=== PATIENT | male | born 1945 | race Caucasian/White ===

== ENCOUNTER 2017-12-23 11:09 | Outpatient (CLI) | payer MEDICARE ==
[2017-12-23 11:55] LABS: Anion Gap 9 mmol/L (10-20); BUN (Urea Nitrogen) 17 mg/dL (8.4-25.7); Calc. Creatinine Clearance 0 mL/min (70-130); Calcium 9.5 mg/dL (7.8-10.44); Carbon Dioxide 28 mmol/L (23-31); Chloride 105 mmol/L (98-107); Estimated GFR-MDRD 75; Glucose 125 mg/dL (80-115); PTT 29.3 SEC (22.9-36.1); Potassium 4.7 mmol/L (3.5-5.1); Prothrombin Time 13.2 SEC (12.0-14.7); Sodium 137 mmol/L (136-145)
[2017-12-23 12:09] LABS: #Eosinphils 0.1 thou/uL (0.0-0.7); #Lymphocytes 1.3 thou/uL (1.20-3.40); #Monocytes 0.3 thou/uL (0.11-0.59); #Neutrophils 5.4 thou/uL (1.40-6.50); %Basophils 0.6 % (0.0-1.0); %Eosinophils 1.6 % (0.0-10.0); %Lymphocytes 17.6 % (21.0-51.0); %Monocytes 4.6 % (0.0-10.0); %Neutrophils 75.6 % (42.0-75.0); Hemoglobin 12.8 g/dL (14.0-18.0); MDiff Complete? YES; Macrocytosis SLIGHT = 6-15 cells (100X) (0-5/hpf); Mean Corpuscular HGB CONC 34.4 g/dL (32.0-36.0); Mean Corpuscular Hemoglobin 37.1 pg (27.0-31.0); Mean Platelet Volume 6.9 fL (7.4-10.4); PLT Morphology Comment Appears Adequate; Platelet Count 253 thou/uL (130-400); RBC Distribution Width 15.6 % (11.5-14.5); Red Blood Cell (RBC) Count 3.46 mill/uL (4.70-6.10); White Blood Cell (WBC) Count 7.1 thou/uL (4.8-10.8)
--- NOTE | 2017-12-23 14:37 | RAD ---
PA AND LATERAL VIEWS OF CHEST: Date: 12/23/17 HISTORY: Penile lesion. FINDINGS: The heart size is normal. The lungs are expanded without focal areas of consolidation, pneumothorax, or pleural effusions. There are mild degenerative changes in the spine. IMPRESSION: No radiographic evidence of cardiopulmonary process. POS: [facility]
== END 2017-12-23 11:10 | disposition home or self-care (01) ==
LOC: EKG 11:09
PROVIDERS: ATTEND Urology
DX: N48.9 Disorder of penis, unspecified (principal)
CPT/HCPCS: 71046; 80048; 81001; 85025; 85610; 85730; 87086; 93005; G0103; 36415; 93010

== ENCOUNTER 2017-12-29 05:35 | Day surgery (SDC) | payer MEDICARE ==
[2017-12-24 10:02] VITALS: BMI 26.6
[2017-12-29] MEDS ORDERED: CEFAZOLIN/Water 2 GM/20 ML SYRINGE ONE (06:19)
[2017-12-29] MEDS ORDERED: Neomycin-Polymyxin 1 ML AMP ONE (06:44)
[2017-12-29] MEDS ORDERED: Bacitracin Zinc Ointment 30 gm TUBE ONE (06:44)
[2017-12-29] MEDS ORDERED: Midazolam HCl 2 mg/2 ml Vial ONE ×2 (07:07→07:10)
[2017-12-29] MEDS ORDERED: Fentanyl 100 MCG/2 ML VIAL ONE ×3 (07:07→08:20)
[2017-12-29] MEDS ORDERED: Bupivacaine 0.5% 10 ML VIAL ONE (07:44)
--- NOTE | 2017-12-29 14:03 | OP ---
DATE OF SERVICE: 12/29/2017 PREOPERATIVE DIAGNOSES: 1. Penile lesion. 2. Phimosis. POSTOPERATIVE DIAGNOSES: 1. Penile lesion. Consistent with squamous cell carcinoma. 2. Phimosis. PROCEDURE: Partial penectomy. SURGEON: Dr. Bravo. ANESTHESIA: General LMA as well as penile block. COMPLICATIONS: None. SPECIMEN: Original prostate biopsy as well as the distal portion of the penis and finally a skin margin from the dorsal shaft. DRAIN: Draining was an 18-[place] silicone. ESTIMATED BLOOD LOSS: Minimal blood loss. INDICATIONS: The patient is a 72-year-old male, who was seen in the office with phimosis and concern for penile lesion. Upon inspection, this was concerning for cancer, just by observation. So we discussed doing a biopsy and proceeding with partial penectomy, if that ended up proving consistent with cancer and he was in agreement with this. Preoperatively, he did not have any concern for lymphadenopathy and we proceeded with the case. TECHNIQUE: The patient was brought to the room by Anesthesia, lying on table in the supine position. After given general anesthetic. A penile block was administered with 0.25% Marcaine 10 mL and he was prepped and draped in sterile fashion. A tourniquet was placed and a biopsy including the normal and concerning portion of the glans was then sent. Once specimen was taken the tourniquet was taken off, so it was on for less than 30 seconds before releasing. With it off and holding pressure to the biopsy site, I awaited confirmation from pathology that this was a cancer. They reported this was c/w invasive squamous cell carcinoma, so I proceeded with partial penectomy. At this point, the tourniquet was placed back up and the distal portion of the penis was transected, taking care to get at least 2 cm margin from the expected lesion. When everything but the corpus spongiosum was resected, the penis was held up placing the urethra on slight traction. In this fasion, another 1cm of urethra was left for distal margin, and it was then completely transected. Still with the tourniquet on, the corpora cavernosa were sewn over individually using 3-0 PDS in running fashion. The tourniquet was released, and only a mild amount of bleeding was noted. The tourniquet was not needed further. More 3-0 PDS was used in interrupted and running fashion to ensure maximum hemostasis of the corpora cavernosa at this time. At no time was there an obvious central or dorsal vessel that needed separate ligation. Complete hemostasis was noted before turning attention to the urethra. Then the urethra itself was spatulated ventrally, and the periurethral tissue was reapproximated to the subcutaneous tissue to alleviate tension and some pressure on the skin due to mobility. Then, attention was turned to the mucosa itself where a 4-0 Monocryl was used in interrupted fashion to approximate the mucosa to the remaining skin. A portion of the ventral skin had been excised in order to have the margins line up in more cosmetic fashion; this was also sent--but was not concerning for any remaining cancer. Prior to placing the last sutures, an 18 silicone catheter was placed to gravity and then the final sutures were placed and the catheter was secured to the patient's thigh with a catheter secure. Bacitracin was applied to the wound and the patient's penis and perineal area was cleaned. I had confirmed that there was at least a 2 cm margin with pathology before completing the case. He was awakened and transferred to the PACU in stable condition. [facility]
[2017-12-29] MEDS ORDERED: Lidocaine 1% PF 5 ML VIAL ONE (16:24)
[2017-12-29] MEDS ORDERED: Propofol 200 MG/20 ML VIAL ONE (16:24)
== END 2017-12-29 10:50 | disposition home or self-care (01) ==
LOC: SDC 05:35
PROVIDERS: ATTEND Urology
PROC: 0VBSXZZ Excision of Penis, External Approach (ICD-10-PCS; principal; 2017-12-29)
DX: C60.9 Malignant neoplasm of penis, unspecified (principal); C60.1 Malignant neoplasm of glans penis; N47.1 Phimosis; I34.1 Nonrheumatic mitral (valve) prolapse; F17.290 Nicotine dependence, other tobacco product, uncomplicated
CPT/HCPCS: 88305; 88309; 88331; 88332; J2001; J2250; J2704; J3010; J3490

== ENCOUNTER 2018-02-15 09:43 | Outpatient (CLI) | payer MEDICARE ==
--- NOTE | 2018-02-15 13:16 | MRI ---
MRI OF THE PELVIS WITHOUT AND WITH CONTRAST: Date: 02/15/18 COMPARISON: None. HISTORY: History of penile cancer with enlarged inguinal lymph nodes. TECHNIQUE: Multiplanar, multisequence MR images were obtained of the pelvis without and with IV contrast. FINDINGS: The corpora course superiorly at the skin surface. The penis is very small and may have been partiall y resected. There is a well circumscribed, nonenhancing focus of high T1 and T2 signal at the skin nunn rface where the corpora course superiorly that measures 1.9 cm in size. This may represent a small fl uid collection. There are enlarged bilateral inguinal lymph nodes. The largest is seen on the left, which measures 2. 7 cm in size. There is enhancement of the periphery of the lymph node without significant central enh ancement. Edema is seen in both inguinal regions surrounding the enlarged lymph nodes. The prostate is enlarged. The urinary bladder is unremarkable. No marrow signal abnormality is seen i n the visualized bones. IMPRESSION: 1. Enlarged bilateral inguinal lymph nodes are most likely secondary to metastatic disease to the in guinal lymph nodes. 2. Nonspecific well circumscribed cyst-like structure at the tip of the corpora. Correlate with phys ical examination. POS: [facility]
[2018-02-15] MEDS ORDERED: Gadobenate Dimeglumine 529 MG/1 ML (20ML VIAL) ONE (14:51)
== END 2018-02-15 09:44 | disposition home or self-care (01) ==
LOC: TBSIIMAG 09:43
PROVIDERS: ATTEND Urology
DX: R59.9 Enlarged lymph nodes, unspecified (principal)
CPT/HCPCS: 72197; 82565; A9579

== ENCOUNTER 2018-04-01 12:07 | Outpatient (CLI) | payer MEDICARE ==
--- NOTE | 2018-04-01 15:01 | RAD ---
INSPIRATORY AND EXPIRATORY FRONTAL IMAGING OF THE CHEST: Date: 04-01-18 Comparison: 12-23-17 History: Lymph node disorder. FINDINGS: There are small nodular densities overlying bilateral lung bases suggesting nipple shadows. This coul d be confirmed with follow up imaging with nipple markers. There is no pneumothorax seen on either si de on inspiratory or expiratory phase imaging. The heart and mediastinal contours appear grossly unre markable. IMPRESSION: Bibasilar nodular density as above. No focal consolidation or evidence of pulmonary edema. POS: [facility]
--- NOTE | 2018-04-01 17:36 | PET ---
PET WITH CT WHOLE BODY: INDICATION: History of penile cancer. TECHNIQUE: Whole body PET images were obtained following administration of 12.03 mCi [id number] IV. The CT images w ere obtained from the skull vertex through the feet for attenuation correction purposes only. No PET CT comparisons are available. Comparisons are made with prior MR of the pelvis with and without contr ast dated 02/15/18. FINDINGS: Biodistribution: The biodistribution for the examination appears acceptable. Head/Neck: No hypermetabolic lymphadenopathy or skin lesion is identified within the head and neck region. Thorax: No hypermetabolic pulmonary nodule or pleural effusion is demonstrated. No hypermetabolic lymphadenop athy is evident. Abdomen/Pelvis: No hypermetabolic lymphadenopathy or ascites is present within the abdomen. There are hypermetabolic inguinal lymph nodes seen bilaterally. The largest is seen on the left within the region of the left common femoral chain measuring up to 8.7 cm in size with a peak SUV uptake of 14.05 and a mean uptake value of 7.13. This lymph node has increased in size from the comparison examination where it measur ed up to 2.7 cm. There is an additional hypermetabolic lymph node seen within the left inguinal regio n adjacent to this larger one and an additional smaller hypermetabolic lymph node is seen adjacent to the left femoral vein at the level of the left femoral canal. There are additional hypermetabolic le ft inguinal lymph nodes. No pathologically enlarged or hypermetabolic lymph nodes are seen internally within the pelvis. Skin/Osseous Structures: No hypermetabolic skin or osseous lesions demonstrated. IMPRESSION: Abnormal PET CT: 1. Hypermetabolic lymphadenopathy of the inguinal regions consistent with regional metastatic diseas e. 2. No definite hypermetabolic skin activity is seen in the region of the penile shaft or elsewhere t o suggest residual malignancy in the penile shaft. 3. Other findings as above. POS: [facility]
--- NOTE | 2018-04-01 20:31 | EKG ---
Test Reason : Blood Pressure : / mmHG Vent. Rate : 073 BPM Atrial Rate : 073 BPM P-R Int : 154 ms QRS Dur : 082 ms QT Int : 380 ms P-R-T Axes : 069 049 068 degrees QTc Int : 418 ms Normal sinus rhythm Normal ECG When compared with ECG of 23-DEC-2017 11:46, No significant change was found Confirmed by ALEJO LOYD, DR. Crocker ([id number]) on 04/01/2018 8:31:20 PM Referred By: OUT OF TOWN Confirmed By:DR. Lizzette DHILLON MD
== END 2018-04-01 12:08 | disposition home or self-care (01) ==
LOC: EKG 12:07
DX: R59.0 Localized enlarged lymph nodes (principal); J98.4 Other disorders of lung
CPT/HCPCS: 71045; 71046; 78816; 93005; A9552; 93010

== ENCOUNTER 2018-04-12 14:04 | Emergency (ER) | payer MEDICARE ==
[~2018-04-12 14:04] MED LIST: Iopamidol 370 76% 100 ML VIAL ONE
[2018-04-12] MEDS ORDERED: HYDROcodone/Acetaminophen 5/325 mg Tablet ONE (14:28)
[2018-04-12 15:00] LABS: ALT (SGPT) 21 U/L (8-55); AST (SGOT) 21 U/L (5-34); Albumin 3.7 g/dL (3.4-4.8); Alkaline Phosphatase 67 U/L (40-150); Anion Gap 14 mmol/L (10-20); BUN (Urea Nitrogen) 10 mg/dL (8.4-25.7); Bilirubin, Total 1.2 mg/dL (0.2-1.2); Calc. Creatinine Clearance 0 mL/min (70-130); Calcium 9.1 mg/dL (7.8-10.44); Carbon Dioxide 20 mmol/L (23-31); Chloride 106 mmol/L (98-107); Estimated GFR-MDRD 89; Globulin 3.1 g/dL (2.4-3.5); Glucose 101 mg/dL (80-115); Potassium 3.8 mmol/L (3.5-5.1); Protein, Total 6.8 g/dL (5.8-8.1); Sodium 136 mmol/L (136-145)
[2018-04-12 15:01] LABS: Hemoglobin 11.1 g/dL (14.0-18.0); Mean Corpuscular HGB CONC 37.1 g/dL (32.0-36.0); Mean Corpuscular Hemoglobin 35.8 pg (27.0-31.0); Mean Corpuscular Volume 96.7 fl (80.0-94.0); Mean Platelet Volume 7.1 fL (7.4-10.4); Platelet Count 187 thou/uL (130-400); RBC Distribution Width 13.9 % (11.5-14.5)
[2018-04-12 15:03] LABS: Band 4 % (5-11); Lymphocytes 8 % (21-51); Monocytes 3 % (0-10); Neutrophil 85 % (42-75)
[2018-04-12 15:05] LABS: MDiff Complete? YES; Manual Diff?? YES
--- NOTE | 2018-04-12 15:47 | ULT ---
SCROTAL ULTRASOUND: Date: 04/12/18 COMPARISON: None. HISTORY: Penile cancer, testicular/scrotal swelling. TECHNIQUE: Multiplanar Cunningham scale sonographic imaging of the scrotal contents obtained with Doppler interrogatio n of the testicles, including color flow and spectral analysis. FINDINGS: Right testicle measures 4.9 x 3.5 x 2.3 cm. Left testicle measures 5.0 x 2.4 x 2.8 cm. There is diffu se nonspecific scrotal wall thickening of the skin and subcutaneous fat. Incidental note is made of a small simple cyst within the right testicle measuring 3.0 x 3.0 mm. No s uspicious intratesticular mass is identified on either side. Small bilateral hydroceles are noted, right greater than left. Epididymal head on the right measures 7.0 x 13.0 mm and epididymal head on the left measures 11.0 x 1 3.0 mm. Subcentimeter bilateral epididymal head cysts are noted. IMPRESSION: Nonspecific scrotal wall thickening/edema. No evidence for testicular torsion, testicular mass lesion , or epididymitis/orchitis. POS: [facility]
--- NOTE | 2018-04-12 15:57 | CT ---
CONTRAST ENHANCED CT IMAGES ABDOMEN AND PELVIS: HISTORY: Left groin swelling. FINDINGS: Contrast-enhanced CT images of the abdomen and pelvis were obtained after administration of IV contra st. The lung bases are unremarkable. No evidence of free intraperitoneal air is seen. The liver, spleen, pancreas, gallbladder, adrenal glands, and kidneys are unremarkable. No evidence of hydroureteral nephrosis seen. The loops of small bowel are unremarkable. No obvious colonic mass is seen. There is a large mass in the left inguinal area, 3-dimensional measurements measuring 9.5 x 8.2 x 9.7 cm. This lesion has a peripheral rim of soft tissue enhancement with central areas of cystic change compatible with a large left inguinal necrotic lymph node. Additional bi-lobed collection and mass is also seen in the right inguinal area. The right inguinal bilobed lesion has 3-dimensional measure ments of approximately 4.7 x 2.9 x 3.6 cm. Bilateral partially cystic and circumferentially enhancing inguinal lesions most compatible with bila teral inguinal metastatic disease from patient's known history of penile cancer. POS: [facility]
[2018-04-12 16:07] LABS: INR-International Normal Ratio 1.1; Prothrombin Time 13.9 SEC (12.0-14.7)
[2018-04-12 16:08] LABS: PTT 35.7 SEC (22.9-36.1)
== END 2018-04-12 17:52 | disposition home or self-care (01) ==
LOC: SCSER 14:04
DX: I89.9 Noninfective disorder of lymphatic vessels and lymph nodes, unspecified (principal); Z85.45 Personal history of malignant neoplasm of unspecified male genital organ; F17.210 Nicotine dependence, cigarettes, uncomplicated
CPT/HCPCS: 36415; 74177; 76870; 80053; 83605; 85025; 85610; 85730; 93976

== ENCOUNTER 2018-04-26 09:03 | Inpatient (IN) | payer MEDICARE ==
[2018-04-26 10:06] LABS: #Eosinphils 0.2 thou/uL (0.0-0.7); #Lymphocytes 1.1 thou/uL (1.20-3.40); #Monocytes 0.4 thou/uL (0.11-0.59); #Neutrophils 12.1 thou/uL (1.40-6.50); %Basophils 0.2 % (0.0-1.0); %Eosinophils 1.5 % (0.0-10.0); %Lymphocytes 8.1 % (21.0-51.0); %Neutrophils 87.3 % (42.0-75.0); Hemoglobin 11.6 g/dL (14.0-18.0); Mean Corpuscular HGB CONC 34.6 g/dL (32.0-36.0); Mean Corpuscular Hemoglobin 35.3 pg (27.0-31.0); Mean Platelet Volume 6.8 fL (7.4-10.4); Platelet Count 226 thou/uL (130-400); RBC Distribution Width 15.1 % (11.5-14.5); Red Blood Cell (RBC) Count 3.28 mill/uL (4.70-6.10); White Blood Cell (WBC) Count 13.9 thou/uL (4.8-10.8)
[2018-04-26] MEDS ORDERED: PALONOSETRON HCL 0.05 MG/ML 5 ML VIAL IVP SCH (10:15)
[2018-04-26] MEDS ORDERED: Dexamethasone 10 MG/ML VIAL SLOW IVP SCH (10:15)
[2018-04-26] MEDS ORDERED: Famotidine/PF 20 mg/2ml Vial SLOW IVP SCH (10:15)
[2018-04-26] MEDS ORDERED: diphenhydrAMINE 50 MG/ML VIAL IVP SCH (10:15)
[2018-04-26 10:32] LABS: Anion Gap 13 mmol/L (10-20); BUN (Urea Nitrogen) 13 mg/dL (8.4-25.7); Calc. Creatinine Clearance 0 mL/min (70-130); Calcium 10.2 mg/dL (7.8-10.44); Carbon Dioxide 23 mmol/L (23-31); Chloride 101 mmol/L (98-107); Estimated GFR-MDRD 71; Glucose 119 mg/dL (80-115); Potassium 4.5 mmol/L (3.5-5.1); Sodium 132 mmol/L (136-145)
[2018-04-26] MEDS ORDERED: MANNITOL IV SCH (11:00)
[2018-04-26] MEDS ORDERED: CISPLATIN IV SCH (11:00)
[2018-04-26] MEDS ORDERED: SODIUM CHLORIDE 0.9% IV SCH (11:00)
[2018-04-26 11:17] VITALS: BMI 25.7
[2018-04-26] MEDS ORDERED: Benzonatate 100 MG CAP PO PRN (11:28)
[2018-04-26] MEDS ORDERED: Mag-Al 1200 mg/1200 mg/30 ML UDCUP PO PRN (11:28)
[2018-04-26] MEDS ORDERED: traZODone HCl 50 MG TAB PO PRN (11:28)
[2018-04-26] MEDS ORDERED: Senokot 8.6 MG TAB PO PRN (11:28)
[2018-04-26] MEDS ORDERED: Loratadine 10 MG TAB PO PRN (11:28)
[2018-04-26] MEDS ORDERED: Calcium Carbonate 500 MG ChewTAB PO PRN (11:28)
[2018-04-26] MEDS ORDERED: hydrALAZINE 20 MG/ML VIAL SLOW IVP PRN (11:28)
[2018-04-26] MEDS ORDERED: Bisacodyl 5 MG TAB PO PRN (11:28)
[2018-04-26] MEDS ORDERED: Diabetic Tussin 200 MG/10 ML UDCUP PO PRN (11:28)
[2018-04-26] MEDS ORDERED: cloNIDine 0.1 MG TAB PO PRN (11:28)
[2018-04-26] MEDS ORDERED: Acetaminophen 325 MG TAB PO PRN (11:28)
[2018-04-26] MEDS ORDERED: HYDROcodone/Acetaminophen 5/325 mg Tablet PO PRN ×2 (11:56)
--- NOTE | 2018-04-26 12:28 | HP ---
DATE OF ADMISSION: 04/26/2018 PRIMARY CARE PHYSICIAN: Dr. Bayron Palmer. CHIEF COMPLAINT: Need chemotherapy medication for penile cancer. HISTORY OF PRESENT ILLNESS: Mr. Arciniega is a very pleasant 72-year-old male with a recent diagnosis of penile cancer in December of this year, was admitted from Oncology Clinic as a direct admit for recei ving chemotherapy for same. History is mainly obtained by the patient himself and extensive medical records have been reviewed. Mr. Arciniega was diagnosed as having penile cancer when he has found lesion on his penis in December of t his year. He was referred to Urology by his primary care physician and underwent biopsy, which confi rmed the finding of squamous cell carcinoma. He underwent partial penectomy by Dr. Cynthia Bravo at [facility] on 12/29/2017. He was referred to a surgeon for lymph node invasion in the inguinal re on and saw Dr. Hernandez in [place] about 2 months ago. He is supposed to undergo a surgery for lymph node dissection later this month. He reports that he started to notice a significant worsening of his swelling in the left inguinal reg ion for the last 2-3 weeks. It has been hurting him as well. He denies any fever or chills. He den ies any dysuria, frequency, urgency, or hematuria. He denies any other swelling anywhere in the body . He also developed testicular swelling. He sought medical attention at the emergency room on 04/12. Abdominal pelvic CT scan and testicular ultrasound was done by the emergency room physician. The CT scan showed a large mass in the left inguinal area measuring 9.5 x 8.2 x 9.7 cm with central areas of necrosis. Additional bilobed collection mass was also seen in the right inguinal region, wh ich measured 4.7 x 2.9 x 3.6 cm. Testicular ultrasound showed bilateral hydrocele without any testic ular mass, torsion or orchitis or epididymitis. Emergency room physician contacted his surgeon in [facility] and he was instructed to keep up his appointment later in the month for surgery. He reports that because of worsening swelling and pain, he was referred to Dr. Fried by Dr. Bravo. He was seen in the Oncology Clinic and the decision was made that he would undergo chemotherapy damián or to his surgery for necrotic lymph node, which has metastatic disease from his penile cancer. He i s now being admitted to oncology floor for the same. Other than that, he denies any recent illnesses. He denies any nausea, vomiting, diarrhea, abdominal pain. He denies any chest pain or shortness of breath. He denies any urinary symptoms. No fever, chills, weight loss or sweating. PAST MEDICAL HISTORY: 1. Penile cancer with lymph node extension, status post partial penectomy. 2. History of mitral valve prolapse. 3. Remote history of malaria. PAST SURGICAL HISTORY: Penile cancer removal. PSYCHIATRIC HISTORY: No anxiety, no depression. SOCIAL HISTORY: He drinks every day. No history of drug or tobacco abuse. ALLERGIES: No known medication allergies. CURRENT MEDICATIONS: Tylenol with codeine #3 as needed. FAMILY HISTORY: Significant for renal failure in his father who in his 90s. His mom at th e age of 93 of old age. One of his grandmothers had skin cancer. REVIEW OF SYSTEMS: The following complete review of systems was negative, unless otherwise mentioned in the HPI or below: Constitutional: Weight loss or gain, ability to conduct usual activities. Skin: Rash, itching. Eyes: Double vision, pain. ENT/Mouth: Nose bleeding, neck stiffness, pain, tenderness. Cardiovascular: Palpitations, dyspnea on exertion, orthopnea. Respiratory: Shortness of breath, wheezing, cough, hemoptysis, fever or night sweats. Gastrointestinal: Poor appetite, abdominal pain, heartburn, nausea, vomiting, constipation, or diarr hea. Genitourinary: Urgency, frequency, dysuria, nocturia. Musculoskeletal: Pain, swelling. Neurologic/Psychiatric: Anxiety, depression. Allergy/Immunologic: Skin rash, bleeding tendency. A 12-point review of systems was done and is negative except for those mentioned in the history and p hysical. LABORATORY DATA: His CBC today shows WBCs at 13.9 with 87% neutrophils, hemoglobin 11.6, platelet co unt of 226. Serum chemistry shows sodium of 132, glucose of 119. PHYSICAL EXAMINATION: VITAL SIGNS: Blood pressure 120/64, temperature 98.1, heart rate 88, saturating 97% on room air, res pirations 18. GENERAL: No acute distress, awake, alert, oriented x3. HEENT: Mucous membrane is moist and pink. No oropharyngeal exudate or erythema. Head is normocepha lic, atraumatic. Pupils equal, reactive to light and accommodation. Extraocular movement intact. NECK: Supple without any lymphadenopathy, JVD or bruit. CHEST: Clear to auscultation without any wheezing, rales or rhonchi. Rhythm is regular without any murmur, rubs or gallops. ABDOMEN: Soft, nontender, nondistended, positive bowel sounds. GENITOURINARY: Showed significant swelling in his left inguinal region, which is somewhat tender to palpation, has mild erythema without any significant warmth. It is approximately the size of a tenni s ball and it has fluctuance to it. Scrotal swelling has since improved. He has a slight redness on the scrotum. Right inguinal lymph node is also palpable, but it is the size of a small golf ball at the most. LYMPH NODE: No other lymphadenopathy is palpable. NEUROLOGIC: Nonfocal. SKIN: Free of any rashes or bruises. EXTREMITIES: Free of any cyanosis, clubbing, or edema. PSYCHIATRIC: Normal affect. IMPRESSION AND PLAN: 1. Penile cancer with metastasis to lymph nodes and inguinal region. The patient is currently being admitted for chemotherapy. Chemotherapy orders have been written by his oncologist, Dr. Fried. H e will be getting cisplatin as well as dexamethasone. We will monitor him in the Oncology unit. He is currently hemodynamically stable. 2. Leukocytosis. The patient's WBC count was within normal limit in 12/2017. However, at this time , he is not having any signs or symptoms to suggest sepsis. Most likely his leukocytosis is reactive secondary to necrotic lymph node with malignancy. He denies any urinary symptoms either. He is not having any constitutional symptoms either. At this time, antibiotics will be deferred. 3. Deep venous thrombosis and gastrointestinal prophylaxis. 4. Add p.r.n. medication orders. DISPOSITION: Mr. Arciniega is currently being admitted to Oncology unit for chemotherapy as above. Estim ated length of stay is at least 2-3 midnight. Further management will depend upon his clinical cours e and recommendations from Oncology colleagues.
[2018-04-26] MEDS ORDERED: PACLITAXEL IVPB SCH (13:30)
[2018-04-26] MEDS ORDERED: SODIUM CHLORIDE 0.9% IVPB SCH ×4 (13:30→22:00)
[2018-04-26] MEDS: HYDROcodone/Acetaminophen 10/325 mg Tablet PO PRN (15:14)
[2018-04-26] MEDS ORDERED: IFOSFAMIDE IVPB SCH (16:00)
[2018-04-26] MEDS: MESNA IVPB SCH (18:31)
[2018-04-26] MEDS: SODIUM CHLORIDE 0.9% IVPB SCH (18:31)
--- NOTE | 2018-04-26 20:02 | CON ---
DATE OF CONSULTATION: 04/26/2018 REASON FOR CONSULTATION: Chemotherapy for penile cancer. HISTORY OF PRESENT ILLNESS: Mr. 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 He underwent a partial penectomy in December. He had no concerning lymphadenopathy preoperatively. In March of this year, he began to have an enlarging mass in his left groin. He also had palpable lymph nodes in his right groin. He contacted his surgeon and was scheduled for lymph node dissection on 05/05. He unde rwent a CT scan of the abdomen and pelvis on 04/12, showed a large mass in the left inguinal area vin suring 9.5 x 8.2 x 9.7. He had a bilobed mass in his right inguinal region measuring 4.7 x 2.9 x 3.6 cm. He was able to get a hold of his surgeon and his surgery was scheduled for 04/28. Unfortunatel y, his left mass has continued to grow and is causing some shooting pain in his groin and scrotum. Arely Fried saw Mr. Arciniega on 04/19 and discussed prognosis and diagnosis. The lymph nodes are rapidly progressing and felt that neoadjuvant chemotherapy is now the best option. The patient is admitted t [facility] to begin cycle 1 of 4 paclitaxel, ifosfamide and cisplatin. PAST MEDICAL HISTORY: 1. Mitral valve prolapse. 2. Malaria. PAST SURGICAL HISTORY: Partial penectomy in 12/2017. ALLERGIES: No known drug allergies. HOME MEDICATIONS: Hydrocodone 10/325 one q.4-6 hours p.r.n. pain. FAMILY HISTORY: Noncontributory. SOCIAL HISTORY: He is , has one child. Lives alone. Social drinker. No tobacco or illicit drug use. REVIEW OF SYSTEMS: Positive for groin pain. Otherwise, negative. PHYSICAL EXAMINATION: VITAL SIGNS: Temperature is 98.1, pulse is 88, respiratory rate 18, BP is 120/64, is 97% on room air . GENERAL: This is a well-developed, well-nourished male, in no acute distress. HEENT: Normocephalic, atraumatic. Pupils equal and reactive to light. NECK: Supple. CARDIOVASCULAR: Regular rate and rhythm. LUNGS: Clear. ABDOMEN: Soft, nontender. Bowel sounds are positive. EXTREMITIES: No clubbing, cyanosis or edema. SKIN: No rash. LYMPH: He has a large bulky left inguinal mass measuring greater than 10 cm and the right inguinal a hemalatha has approximately 4-5 cm mass. NEUROLOGIC: Nonfocal. PSYCHIATRIC: The patient is alert and oriented and appropriate. PERTINENT LABORATORY AND X-RAYS: Current WBCs are 13.9, hemoglobin 11.6, hematocrit 33.5, platelet c ount is 226,000, 87% neutrophils, 8% lymphocytes. Sodium is 132, potassium 4.5, chloride 101, CO2 is 23, BUN is 13, creatinine 1.04, glucose 119, calcium 10.2. ASSESSMENT: 1. Squamous level carcinoma of the penis. 2. Admission for neoadjuvant chemotherapy. DISCUSSION: The patient will receive his first dose of chemotherapy today. This will include paclit edwar, ifosfamide and cisplatin. He will receive mesna for cardioprotection prior to ifosfamide. He will also receive IV hydration throughout this process to protect his kidneys. We will check his CBC daily. I will adjust his pain medications to his home dose of 10 mg of hydrocodone, add Colace stoo l softener. All other medical related issues have been managed by son. I appreciate their assistanc e. Thank you for the consult.
[2018-04-26] MEDS: Docusate 100 MG CAP PO SCH (21:15)
[2018-04-26] MEDS: Famotidine 20 MG TAB PO SCH (21:15)
[2018-04-26] MEDS: Enoxaparin Sodium 40 MG/0.4 ML SYRINGE SC SCH (21:16)
[2018-04-26] MEDS ORDERED: MESNA IVPB SCH ×2 (22:00)
[2018-04-27] MEDS ORDERED: MESNA IVPB SCH ×4 (02:00→23:00)
[2018-04-27] MEDS ORDERED: SODIUM CHLORIDE 0.9% IVPB SCH ×4 (02:00→23:00)
[2018-04-27 04:21] LABS: #Lymphocytes 0.7 thou/uL (1.20-3.40); #Monocytes 0.1 thou/uL (0.11-0.59); #Neutrophils 5.5 thou/uL (1.40-6.50); %Eosinophils 0.1 % (0.0-10.0); %Lymphocytes 10.8 % (21.0-51.0); %Monocytes 1.1 % (0.0-10.0); Hemoglobin 10.3 g/dL (14.0-18.0); Mean Corpuscular HGB CONC 35.6 g/dL (32.0-36.0); Mean Corpuscular Hemoglobin 36.3 pg (27.0-31.0); Mean Platelet Volume 7.2 fL (7.4-10.4); Platelet Count 204 thou/uL (130-400); RBC Distribution Width 15.1 % (11.5-14.5); Red Blood Cell (RBC) Count 2.83 mill/uL (4.70-6.10); White Blood Cell (WBC) Count 6.3 thou/uL (4.8-10.8)
[2018-04-27 04:49] LABS: Anion Gap 10 mmol/L (10-20); BUN (Urea Nitrogen) 12 mg/dL (8.4-25.7); Calc. Creatinine Clearance 124 mL/min (70-130); Calcium 8.8 mg/dL (7.8-10.44); Carbon Dioxide 22 mmol/L (23-31); Chloride 107 mmol/L (98-107); Estimated GFR-MDRD Greater than 90; Glucose 142 mg/dL (80-115); Potassium 4.4 mmol/L (3.5-5.1); Sodium 135 mmol/L (136-145)
[2018-04-27] MEDS ORDERED: Pegfilgrastim 6 MG/0.6 ML Delivery Kit SQ SCH (08:15)
[2018-04-27] MEDS: Famotidine 20 MG TAB PO SCH ×2 (08:18→21:21)
[2018-04-27] MEDS: Docusate 100 MG CAP PO SCH ×2 (08:18→21:21)
--- NOTE | 2018-04-27 09:11 | PDOC.PN ---
- Subjective Encounter Start Date: 04/27/18 Encounter Start Time: 10:50 Subjective: Patient with some left groin pain resolved with pain pill. No N/V/ SOB/Fever -: or other complaints. - Objective Resuscitation Status: Resuscitation Status FULL:Full Resuscitation MAR Reviewed: Yes Vital Signs & Weight: Vital Signs (12 hours) Temp Pulse Resp BP Pulse Ox 04/27/18 07:19 97.7 F 69 16 138/63 95 04/27/18 03:35 97.8 F 66 18 121/58 L 98 04/27/18 00:00 97.9 F 63 16 145/65 H 98 Weight Weight 211 lb 3.2 oz I&O: 04/26/18 04/27/18 04/28/18 06:59 06:59 06:59 Intake Total 5120 Output Total 5010 Balance 110 Result Diagrams: 04/27/18 03:53 04/27/18 03:53 Phys Exam - Physical Examination Constitutional: NAD HEENT: moist MMs Respiratory: no wheezing, no rales, no rhonchi Cardiovascular: RRR, no significant murmur Gastrointestinal: soft, positive bowel sounds dressing to lump in left inguinal region Neurological: non-focal, moves all 4 limbs Psychiatric: normal affect, A&O x 3 Dx/Plan (1) Penile cancer Status: Acute (2) Metastatic squamous cell carcinoma Code(s): C79.9 - SECONDARY MALIGNANT NEOPLASM OF UNSPECIFIED SITE Status: Acute Comment: involving the inguinal lymph node, admitted for chemotherapy, scheduled excision with surgeon in [employer] on 05/05, Dr. Fried following (3) Mitral valve prolapse Code(s): I34.1 - NONRHEUMATIC MITRAL (VALVE) PROLAPSE Status: Chronic - Plan cont current plan of care, DVT proph w/SCDs * . - Discharge Day Encounter end time: 11:05
[2018-04-27] MEDS: HYDROcodone/Acetaminophen 10/325 mg Tablet PO PRN ×3 (09:43→18:27)
[2018-04-27] MEDS ORDERED: Dexamethasone 10 MG, Ondansetron 2MG/ML MDV 10 MG in Sodium Chloride 0.9% 50 ML IVPB SCH (14:00)
[2018-04-27] MEDS: SODIUM CHLORIDE 0.9% IVPB SCH ×2 (14:45→15:11)
[2018-04-27] MEDS: MESNA IVPB SCH (14:45)
[2018-04-27] MEDS: IFOSFAMIDE IVPB SCH (15:11)
[2018-04-27] MEDS: SODIUM CHLORIDE 0.9% IV SCH (17:30)
[2018-04-27] MEDS: CISPLATIN IV SCH (17:30)
[2018-04-27] MEDS: MANNITOL IV SCH (17:30)
[2018-04-27] MEDS: Enoxaparin Sodium 40 MG/0.4 ML SYRINGE SC SCH (21:23)
[2018-04-28] MEDS: HYDROcodone/Acetaminophen 10/325 mg Tablet PO PRN ×4 (03:30→20:03)
[2018-04-28 05:39] LABS: Anion Gap 12 mmol/L (10-20); BUN (Urea Nitrogen) 15 mg/dL (8.4-25.7); Calc. Creatinine Clearance 115 mL/min (70-130); Calcium 8.3 mg/dL (7.8-10.44); Carbon Dioxide 20 mmol/L (23-31); Chloride 108 mmol/L (98-107); Estimated GFR-MDRD Greater than 90; Glucose 99 mg/dL (80-115); Potassium 4.2 mmol/L (3.5-5.1); Sodium 136 mmol/L (136-145)
[2018-04-28 05:43] LABS: Band 11 % (5-11); Hemoglobin 10.4 g/dL (14.0-18.0); Lymphocytes 7 % (21-51); MDiff Complete? YES; Mean Corpuscular HGB CONC 34.1 g/dL (32.0-36.0); Mean Corpuscular Hemoglobin 35.4 pg (27.0-31.0); Mean Platelet Volume 7.5 fL (7.4-10.4); Neutrophil 82 % (42-75); PLT Morphology Comment Appears Adequate; Platelet Count 165 thou/uL (130-400); RBC Distribution Width 15.1 % (11.5-14.5); Red Blood Cell (RBC) Count 2.93 mill/uL (4.70-6.10); White Blood Cell (WBC) Count 13.9 thou/uL (4.8-10.8)
[2018-04-28] MEDS: Famotidine 20 MG TAB PO SCH ×2 (08:16→21:33)
[2018-04-28] MEDS: Docusate 100 MG CAP PO SCH ×2 (08:16→21:32)
--- NOTE | 2018-04-28 08:35 | PDOC.PN ---
- Subjective Encounter Start Date: 04/28/18 Encounter Start Time: 10:20 Subjective: Patient feeling weak and feverish since last night. Had an episode of -: urinary incontinence while sleeping last night which is not normal for -: him. No CP/SOB/cough/N/V. No pain this AM. - Objective Resuscitation Status: Resuscitation Status FULL:Full Resuscitation MAR Reviewed: Yes Vital Signs & Weight: Vital Signs (12 hours) Temp Pulse Resp BP 04/28/18 08:27 100.5 F H 100 16 133/62 Weight Weight 211 lb 3.2 oz I&O: 04/27/18 04/28/18 04/29/18 06:59 06:59 06:59 Intake Total 5120 5670 Output Total 5010 2170 Balance 110 3500 Result Diagrams: 04/28/18 05:00 04/28/18 05:00 Phys Exam - Physical Examination Constitutional: NAD HEENT: moist MMs Respiratory: no wheezing, no rales, no rhonchi Cardiovascular: RRR, no significant murmur Gastrointestinal: soft, non-tender, positive bowel sounds Musculoskeletal: no edema Neurological: non-focal, moves all 4 limbs Psychiatric: normal affect, A&O x 3 Dx/Plan (1) Penile cancer Status: Acute (2) Metastatic squamous cell carcinoma Code(s): C79.9 - SECONDARY MALIGNANT NEOPLASM OF UNSPECIFIED SITE Status: Acute Comment: involving the inguinal lymph node, admitted for chemotherapy, scheduled excision with surgeon in [place] on 05/05, Dr. Fried following (3) Mitral valve prolapse Code(s): I34.1 - NONRHEUMATIC MITRAL (VALVE) PROLAPSE Status: Chronic (4) SIRS (systemic inflammatory response syndrome) Code(s): R65.10 - SIRS OF NON-INFECTIOUS ORIGIN W/O ACUTE ORGAN DYSFUNCTION Status: Acute Comment: temp to 100.7, tachycardia, leukocytosis this AM, likely chemo effect though will need to watch closely for worsening or signs of infection - Plan cont current plan of care, DVT proph w/lovenox, DVT proph w/SCDs * . - Discharge Day Encounter end time: 10:40
[2018-04-28] MEDS ORDERED: MESNA IVPB SCH (09:30)
[2018-04-28] MEDS ORDERED: SODIUM CHLORIDE 0.9% IVPB SCH (09:30)
[2018-04-28] MEDS ORDERED: Dexamethasone 10 MG, Ondansetron 2MG/ML MDV 10 MG in Sodium Chloride 0.9% 50 ML IVPB SCH (14:00)
[2018-04-28] MEDS: SODIUM CHLORIDE 0.9% IVPB SCH ×2 (14:27→15:00)
[2018-04-28] MEDS: MESNA IVPB SCH (14:27)
[2018-04-28] MEDS: IFOSFAMIDE IVPB SCH (15:00)
[2018-04-28] MEDS: MANNITOL IV SCH (16:59)
[2018-04-28] MEDS: SODIUM CHLORIDE 0.9% IV SCH (16:59)
[2018-04-28] MEDS: CISPLATIN IV SCH (16:59)
[2018-04-28] MEDS: Enoxaparin Sodium 40 MG/0.4 ML SYRINGE SC SCH (23:34)
[2018-04-29 06:21] LABS: Anion Gap 13 mmol/L (10-20); BUN (Urea Nitrogen) 17 mg/dL (8.4-25.7); Calc. Creatinine Clearance 107 mL/min (70-130); Calcium 8.4 mg/dL (7.8-10.44); Carbon Dioxide 20 mmol/L (23-31); Chloride 104 mmol/L (98-107); Estimated GFR-MDRD 87; Glucose 98 mg/dL (80-115); Potassium 3.7 mmol/L (3.5-5.1); Sodium 133 mmol/L (136-145)
[2018-04-29 06:49] LABS: Band 3 % (5-11); Hemoglobin 9.4 g/dL (14.0-18.0); Lymphocytes 7 % (21-51); MDiff Complete? YES; Mean Corpuscular HGB CONC 32.9 g/dL (32.0-36.0); Mean Corpuscular Hemoglobin 34.4 pg (27.0-31.0); Mean Platelet Volume 8.7 fL (7.4-10.4); Neutrophil 90 % (42-75); PLT Morphology Comment Appears Decreased; Platelet Count 101 thou/uL (130-400); RBC Distribution Width 15.3 % (11.5-14.5); Red Blood Cell (RBC) Count 2.72 mill/uL (4.70-6.10); White Blood Cell (WBC) Count 15.7 thou/uL (4.8-10.8)
[2018-04-29] MEDS: HYDROcodone/Acetaminophen 10/325 mg Tablet PO PRN ×3 (07:42→21:07)
[2018-04-29] MEDS: Docusate 100 MG CAP PO SCH ×2 (07:42→21:08)
[2018-04-29] MEDS: Famotidine 20 MG TAB PO SCH ×2 (07:42→21:08)
[2018-04-29 11:34] LABS: Bacteria/HPF None Seen HPF (None Seen); Hyaline Casts/LPF 0-3 HYALINE CAST LPF (0-3 Hyaline); Squamous Epithelial 0-3 HPF (0-3); WBC/HPF 0-3 HPF (0-3)
[2018-04-29 11:44] LABS: Bilirubin Negative (Negative); Blood, Urine Small (Negative); Clarity CLEAR (Clear); Glucose, Urine (Dipstick) Negative (Negative); Leukocyte Negative (Negative); Nitrite Negative (Negative); Protein, Urine (Dipstick) 30 mg/dL (Neg-Trace); Specific Gravity, Urine 1.015 (1.002-1.036); pH, Urine 6.5 (5.0-9.0)
[2018-04-29 11:51] LABS: Renal Epithelial None Seen HPF (0-3); Transitional Epithelial NONE SEEN HPF (0-3)
[2018-04-29] MEDS ORDERED: Piperacillin/Tazobactam 3.375 GM in Sodium Chloride 0.9% 100 ML IVPB SCH (12:00)
--- NOTE | 2018-04-29 14:34 | PDOC.PN ---
- Subjective Encounter Start Date: 04/29/18 Subjective: feels well and better than before.no new complaints - Objective Resuscitation Status: Resuscitation Status FULL:Full Resuscitation MAR Reviewed: Yes Vital Signs & Weight: Vital Signs (12 hours) Temp Pulse Resp BP Pulse Ox 04/29/18 12:00 98.1 F 71 12 133/60 98 04/29/18 08:00 99.8 F H 88 20 97 04/29/18 07:39 99.8 F H 88 20 143/63 H 97 Weight Weight 211 lb 3.2 oz I&O: 04/28/18 04/29/18 04/30/18 06:59 06:59 06:59 Intake Total 5670 7375 Output Total 2170 3450 Balance 3500 3925 Result Diagrams: 04/29/18 05:40 04/29/18 05:40 Phys Exam - Physical Examination Constitutional: NAD HEENT: PERRLA, moist MMs, sclera anicteric, oral pharynx no lesions Neck: no nodes, no JVD, supple, full ROM Respiratory: no wheezing, no rales, no rhonchi, clear to auscultation bilateral Cardiovascular: RRR, no significant murmur, no rub Gastrointestinal: soft, non-tender, no distention, positive bowel sounds Left inguinal LAP Musculoskeletal: no edema, pulses present Neurological: non-focal, normal sensation, moves all 4 limbs Psychiatric: normal affect, A&O x 3 Skin: no rash Dx/Plan (1) SIRS (systemic inflammatory response syndrome) Code(s): R65.10 - SIRS OF NON-INFECTIOUS ORIGIN W/O ACUTE ORGAN DYSFUNCTION Status: Acute Comment: low grade fever, tachycardia, leukocytosis this AM, likely chemo effect though will need to watch closely for worsening or signs of infection (2) Metastatic squamous cell carcinoma Code(s): C79.9 - SECONDARY MALIGNANT NEOPLASM OF UNSPECIFIED SITE Status: Acute Comment: involving the inguinal lymph node, admitted for chemotherapy, scheduled excision with surgeon in [place] on 05/05, Dr. Fried following (3) Penile cancer Status: Acute (4) Mitral valve prolapse Code(s): I34.1 - NONRHEUMATIC MITRAL (VALVE) PROLAPSE Status: Chronic - Plan DVT proph w/SCDs will get blood & urine Cx.fever lower today -: leucocytosis due to dexamethasone.pt also started on neulasta. -: will monitor.if fever improves, and Cx negative,will DC home tomorrow. * . Review of Systems - Review of Systems Constitutional: fever. negative: chills, sweats, weakness, malaise, other ENT: negative: Ear Pain, Ear Discharge, Nose Pain, Nose Discharge, Nose Congestion, Mouth Pain, Mouth Swelling, Throat Pain, Throat Swelling, Other Respiratory: negative: Cough, Dry, Shortness of Breath, Hemoptysis, SOB with Excertion, Pleuritic Pain, Sputum, Wheezing Cardiovascular: negative: chest pain, palpitations, orthopnea, paroxysmal nocturnal dyspnea, edema, light headedness, other Gastrointestinal: negative: Nausea, Vomiting, Abdominal Pain, Diarrhea, Constipation, Melena, Hematochezia, Other Genitourinary: negative: Dysuria, Frequency, Incontinence, Hematuria, Retention , Other Musculoskeletal: negative: Neck Pain, Shoulder Pain, Arm Pain, Back Pain, Hand Pain, Leg Pain, Foot Pain, Other Skin: negative: Rash, Lesions, Edu, Bruising, Other Neurological: negative: Weakness, Numbness, Incoordination, Change in Speech, Confusion, Seizures, Other - Medications/Allergies Allergies/Adverse Reactions: Allergies Allergy/AdvReac Type Severity Reaction Status Date / Time No Known Allergies Allergy Verified 04/26/18 12:08 Medications: Current Medications Acetaminophen (Tylenol) 650 mg PO Q4H PRN PRN Reason: Headache/Fever or Pain Last Admin: 04/28/18 09:52 Dose: 650 mg Hydrocodone Bitart/Acetaminophen ([place] 10/325) 1 tab PO Q4H PRN PRN Reason: Moderate Pain (4-6) Last Admin: 04/28/18 17:21 Dose: 1 tab Hydrocodone Bitart/Acetaminophen ([place] 10/325) 2 tab PO Q4H PRN PRN Reason: Moderate to Severe Pain (6-10) Last Admin: 04/29/18 07:42 Dose: 2 tab Al Hydroxide/Mg Hydroxide (Maalox) 30 ml PO Q6H PRN PRN Reason: Heartburn or Indigestion Benzonatate (Tessalon) 100 mg PO Q4H PRN PRN Reason: Cough Bisacodyl (Dulcolax) 10 mg PO DAILYPRN PRN PRN Reason: Constipation Last Admin: 04/27/18 14:16 Dose: 10 mg Calcium Carbonate (Tums) 1,000 mg PO Q4H PRN PRN Reason: Heartburn or Indigestion Clonidine (Catapres) 0.1 mg PO Q4H PRN PRN Reason: Systolic BP > 160 Docusate Sodium (Colace) 100 mg PO BID [facility] Last Admin: 04/29/18 07:42 Dose: 100 mg Enoxaparin Sodium (Lovenox) 40 mg SC 2100 [facility] Last Admin: 04/28/18 23:34 Dose: 40 mg Famotidine (Pepcid) 20 mg PO BID [facility] Last Admin: 04/29/18 07:42 Dose: 20 mg Guaifenesin (Robitussin Sf) 200 mg PO Q4H PRN PRN Reason: Cough Hydralazine HCl (Apresoline) 10 mg SLOW IVP Q4H PRN PRN Reason: Systolic BP > 170 Potassium Chloride 10 meq/ (Sodium Chloride) 1,005 mls @ 50 mls/hr IV .Q20H6M [facility] Last Admin: 04/29/18 00:39 Dose: 1,005 mls Potassium Chloride 10 meq/ (Sodium Chloride) 1,005 mls @ 0 mls/hr IV .Q0M [facility] PRN Reason: As Directed Last Admin: 04/28/18 19:59 Dose: 1,005 mls Loratadine (Claritin) 10 mg PO DAILYPRN PRN PRN Reason: Sinus Symptoms Ondansetron HCl (Zofran) 8 mg IVP Q6H PRN PRN Reason: Nausea/Vomiting Pegfilgrastim (Neulasta) 6 mg SQ WILLCALL [facility] Last Admin: 04/28/18 19:31 Dose: 6 mg Promethazine HCl (Phenergan) 25 mg PO Q6H PRN PRN Reason: Nausea Senna (Senokot) 2 tab PO HSPRN PRN PRN Reason: Constipation Tramadol HCl (Ultram) 50 mg PO Q4H PRN PRN Reason: Moderate Pain (4-6) Trazodone HCl (Desyrel) 50 mg PO HSPRN PRN PRN Reason: Insomnia
[2018-04-29] MEDS: Ondansetron HCl/PF 4 MG/2 ML Vial IVP PRN (16:08)
[2018-04-29] MEDS ORDERED: Vancomycin HCl 1 GM in Premix Bag 1 BAG IVPB SCH (21:00)
[2018-04-29] MEDS: Enoxaparin Sodium 40 MG/0.4 ML SYRINGE SC SCH (21:08)
[2018-04-30 05:57] LABS: Anion Gap 12 mmol/L (10-20); BUN (Urea Nitrogen) 19 mg/dL (8.4-25.7); Calc. Creatinine Clearance 99 mL/min (70-130); Calcium 8.3 mg/dL (7.8-10.44); Carbon Dioxide 21 mmol/L (23-31); Chloride 97 mmol/L (98-107); Estimated GFR-MDRD 79; Glucose 111 mg/dL (80-115); Potassium 3.6 mmol/L (3.5-5.1); Sodium 126 mmol/L (136-145)
[2018-04-30] MEDS: Famotidine 20 MG TAB PO SCH ×2 (07:52→22:00)
[2018-04-30] MEDS: Docusate 100 MG CAP PO SCH ×2 (07:53→22:00)
[2018-04-30] MEDS: traMADol HCl 50 MG TAB PO PRN ×3 (07:53→19:14)
[2018-04-30 08:06] LABS: Hemoglobin 9.5 g/dL (14.0-18.0); Mean Corpuscular HGB CONC 34.1 g/dL (32.0-36.0); Mean Corpuscular Hemoglobin 35.1 pg (27.0-31.0); Mean Platelet Volume 8.4 fL (7.4-10.4); Platelet Count 74 thou/uL (130-400); RBC Distribution Width 15.1 % (11.5-14.5); White Blood Cell (WBC) Count 12.4 thou/uL (4.8-10.8)
[2018-04-30 08:23] LABS: Band 20 % (5-11); Lymphocytes 9 % (21-51); MDiff Complete? YES; Macrocytosis SLIGHT = 6-15 cells (100X) (0-5/hpf); Neutrophil 71 % (42-75); PLT Morphology Comment Appears Decreased
[2018-04-30] MEDS: HYDROcodone/Acetaminophen 10/325 mg Tablet PO PRN ×3 (10:20→21:59)
[2018-04-30 14:29] LABS: Osmolality, Urine 223 mOsm/kg (300-900)
[2018-04-30 14:31] LABS: Sodium, Urine 68 mmol/L (Not Available)
--- NOTE | 2018-04-30 14:32 | PDOC.PN ---
- Subjective Encounter Start Date: 04/30/18 Encounter Start Time: 14:31 Subjective: feelw ell. no fever/chills.no N/V/D/AP -: no cough/SOB - Objective Resuscitation Status: Resuscitation Status FULL:Full Resuscitation MAR Reviewed: Yes Vital Signs & Weight: Vital Signs (12 hours) Temp Pulse Resp BP Pulse Ox 04/30/18 11:29 97.8 F 04/30/18 08:00 98.6 F 74 16 94 L 04/30/18 07:31 98.6 F 74 16 119/58 L 94 L Weight Weight 211 lb 3.2 oz I&O: 04/29/18 04/30/18 05/01/18 06:59 06:59 06:59 Intake Total 7375 2550 Output Total 3450 2750 Balance 3925 -200 Result Diagrams: 04/30/18 05:18 04/30/18 05:18 Additional Labs: labs reviewed Microbiology 04/29/18 10:45 Urine clean catch Urine Culture - Preliminary NO GROWTH AT 24 HOURS 04/29/18 10:36 Venous blood - Left Hand Blood Culture - Preliminary Specimen has been received and culture in progress. No Growth to date. 04/29/18 10:36 Venous blood - Left Arm Blood Culture - Preliminary Specimen has been received and culture in progress. No Growth to date. Phys Exam - Physical Examination Constitutional: NAD HEENT: PERRLA, moist MMs, sclera anicteric, oral pharynx no lesions Neck: no nodes, no JVD, supple, full ROM Respiratory: no wheezing, no rales, no rhonchi, clear to auscultation bilateral Cardiovascular: RRR, no significant murmur, no rub Gastrointestinal: soft, non-tender, no distention, positive bowel sounds Musculoskeletal: no edema, pulses present Neurological: non-focal, normal sensation, moves all 4 limbs stable left inguinal LAP Psychiatric: normal affect, A&O x 3 Skin: no rash Dx/Plan (1) Hyponatremia Code(s): E87.1 - HYPO-OSMOLALITY AND HYPONATREMIA Status: Acute (2) Thrombocytopenia Code(s): D69.6 - THROMBOCYTOPENIA, UNSPECIFIED Status: Acute (3) SIRS (systemic inflammatory response syndrome) Code(s): R65.10 - SIRS OF NON-INFECTIOUS ORIGIN W/O ACUTE ORGAN DYSFUNCTION Status: Acute Comment: low grade fever, tachycardia, leukocytosis yesterday- resolved., likely chemo effect though will need to watch closely for worsening or signs of infection (4) Metastatic squamous cell carcinoma Code(s): C79.9 - SECONDARY MALIGNANT NEOPLASM OF UNSPECIFIED SITE Status: Acute Comment: involving the inguinal lymph node, admitted for chemotherapy, scheduled excision with surgeon in [place] on 05/05, Dr. Fried following (5) Penile cancer Status: Acute (6) Mitral valve prolapse Code(s): I34.1 - NONRHEUMATIC MITRAL (VALVE) PROLAPSE Status: Chronic - Plan out of bed/ambulate, DVT proph w/SCDs Cx results all negative.no indication of ABx .Monitor -: S/P steroids and Neulasta -: Platelet counts low .devi due to ChemoRx.monitor.stop lovenox -: Low sodium despite NS.? etiology.will recheck.consult nephrology -: devi MCCLENDON in am if sodium & platelets stable.hemodynamically stable * . Review of Systems - Review of Systems Constitutional: negative: fever, chills, sweats, weakness, malaise, other ENT: negative: Ear Pain, Ear Discharge, Nose Pain, Nose Discharge, Nose Congestion, Mouth Pain, Mouth Swelling, Throat Pain, Throat Swelling, Other Respiratory: negative: Cough, Dry, Shortness of Breath, Hemoptysis, SOB with Excertion, Pleuritic Pain, Sputum, Wheezing Cardiovascular: negative: chest pain, palpitations, orthopnea, paroxysmal nocturnal dyspnea, edema, light headedness, other Gastrointestinal: negative: Nausea, Vomiting, Abdominal Pain, Diarrhea, Constipation, Melena, Hematochezia, Other Genitourinary: negative: Dysuria, Frequency, Incontinence, Hematuria, Retention , Other Musculoskeletal: negative: Neck Pain, Shoulder Pain, Arm Pain, Back Pain, Hand Pain, Leg Pain, Foot Pain, Other Neurological: negative: Weakness, Numbness, Incoordination, Change in Speech, Confusion, Seizures, Other - Medications/Allergies Allergies/Adverse Reactions: Allergies Allergy/AdvReac Type Severity Reaction Status Date / Time No Known Allergies Allergy Verified 04/26/18 12:08 Medications: Current Medications Acetaminophen (Tylenol) 650 mg PO Q4H PRN PRN Reason: Headache/Fever or Pain Last Admin: 04/28/18 09:52 Dose: 650 mg Hydrocodone Bitart/Acetaminophen ([place] 10/325) 1 tab PO Q4H PRN PRN Reason: Moderate Pain (4-6) Last Admin: 04/30/18 10:20 Dose: 1 tab Hydrocodone Bitart/Acetaminophen ([place] 10/325) 2 tab PO Q4H PRN PRN Reason: Moderate to Severe Pain (6-10) Last Admin: 04/29/18 21:07 Dose: 2 tab Al Hydroxide/Mg Hydroxide (Maalox) 30 ml PO Q6H PRN PRN Reason: Heartburn or Indigestion Benzonatate (Tessalon) 100 mg PO Q4H PRN PRN Reason: Cough Bisacodyl (Dulcolax) 10 mg PO DAILYPRN PRN PRN Reason: Constipation Last Admin: 04/27/18 14:16 Dose: 10 mg Calcium Carbonate (Tums) 1,000 mg PO Q4H PRN PRN Reason: Heartburn or Indigestion Clonidine (Catapres) 0.1 mg PO Q4H PRN PRN Reason: Systolic BP > 160 Docusate Sodium (Colace) 100 mg PO BID [facility] Last Admin: 04/30/18 07:53 Dose: 100 mg Enoxaparin Sodium (Lovenox) 40 mg SC 2100 [facility] Last Admin: 04/29/18 21:08 Dose: 40 mg Famotidine (Pepcid) 20 mg PO BID [facility] Last Admin: 04/30/18 07:52 Dose: 20 mg Guaifenesin (Robitussin Sf) 200 mg PO Q4H PRN PRN Reason: Cough Hydralazine HCl (Apresoline) 10 mg SLOW IVP Q4H PRN PRN Reason: Systolic BP > 170 Potassium Chloride 10 meq/ (Sodium Chloride) 1,005 mls @ 50 mls/hr IV .Q20H6M [facility] Last Admin: 04/29/18 21:07 Dose: 1,005 mls Potassium Chloride 10 meq/ (Sodium Chloride) 1,005 mls @ 0 mls/hr IV .Q0M [facility] PRN Reason: As Directed Last Admin: 04/28/18 19:59 Dose: 1,005 mls Loratadine (Claritin) 10 mg PO DAILYPRN PRN PRN Reason: Sinus Symptoms Ondansetron HCl (Zofran) 8 mg IVP Q6H PRN PRN Reason: Nausea/Vomiting Last Admin: 04/29/18 16:08 Dose: 8 mg Pegfilgrastim (Neulasta) 6 mg SQ WILLCALL [facility] Last Admin: 04/28/18 19:31 Dose: 6 mg Promethazine HCl (Phenergan) 25 mg PO Q6H PRN PRN Reason: Nausea Senna (Senokot) 2 tab PO HSPRN PRN PRN Reason: Constipation Tramadol HCl (Ultram) 50 mg PO Q4H PRN PRN Reason: Moderate Pain (4-6) Last Admin: 04/30/18 13:14 Dose: 50 mg Trazodone HCl (Desyrel) 50 mg PO HSPRN PRN PRN Reason: Insomnia
[2018-04-30] MEDS: Ondansetron HCl/PF 4 MG/2 ML Vial IVP PRN (21:51)
[2018-05-01 05:48] LABS: Anion Gap 13 mmol/L (10-20); BUN (Urea Nitrogen) 19 mg/dL (8.4-25.7); Calc. Creatinine Clearance 105 mL/min (70-130); Calcium 8.2 mg/dL (7.8-10.44); Carbon Dioxide 20 mmol/L (23-31); Chloride 95 mmol/L (98-107); Estimated GFR-MDRD 85; Glucose 113 mg/dL (80-115); Potassium 3.7 mmol/L (3.5-5.1); Sodium 124 mmol/L (136-145)
[2018-05-01 06:29] LABS: Band 22 % (5-11); Hemoglobin 9.3 g/dL (14.0-18.0); Lymphocytes 6 % (21-51); MDiff Complete? YES; Mean Corpuscular HGB CONC 35.6 g/dL (32.0-36.0); Mean Corpuscular Hemoglobin 35.5 pg (27.0-31.0); Mean Corpuscular Volume 99.7 fL (78.0-98.0); Mean Platelet Volume 9.3 fL (7.4-10.4); Neutrophil 72 % (42-75); PLT Morphology Comment Appears Decreased; Platelet Count 64 thou/uL (130-400); RBC Distribution Width 14.7 % (11.5-14.5); Red Blood Cell (RBC) Count 2.63 mill/uL (4.70-6.10)
[2018-05-01 08:55] LABS: Sodium 125 mmol/L (136-145)
[2018-05-01 08:57] LABS: Osmolality, Urine 389 mOsm/kg (300-900)
[2018-05-01] MEDS: Famotidine 20 MG TAB PO SCH ×2 (09:01→20:39)
[2018-05-01] MEDS: Promethazine 25 MG TAB PO PRN ×2 (09:01→20:39)
[2018-05-01] MEDS: Docusate 100 MG CAP PO SCH ×2 (09:01→20:40)
[2018-05-01 09:05] LABS: Sodium, Urine 131 mmol/L (Not Available)
[2018-05-01] MEDS ORDERED: Conivaptan 20 MG in Premix Bag 1 BAG IVPB SCH (10:30)
--- NOTE | 2018-05-01 10:53 | CON ---
DATE OF CONSULTATION: 04/30/2018 CONSULTING PHYSICIAN: Dr. Guillermina Mukherjee. REQUESTING PHYSICIAN: Dr. Calderon. REASON FOR CONSULTATION: Hyponatremia. IMPRESSION: Hyponatremia, query cause. This is likely hypo-osmolar hyponatremia in the context of p oor p.o. osmolar intake; however, given the history of malignancy in this patient, syndrome of inappr opriate antidiuretic hormone secretion after that ruled out. PLAN: 1. Urine chemistry including urine osmolarity and urine sodium to evaluate for potential SIADH. 2. Regular diet with high protein intake in the way of animal meat. 3. Going by the urine chemistry that shows osmolality of 223, we will go ahead and increase the rate of normal saline infusion in this patient. 4. Follow up with the sodium level. 5. Further management to be dependent on the clinical course. HISTORY OF PRESENT ILLNESS: History is that of 72-year-old [place] gentleman who presented here for lynette motherapy in the context of penile cancer. Patient presented with a serum sodium of 132 and during h ospitalization went up to 136; however, today sodium dropped to 126 and felt the need for renal consu ltation. Patient has not been eating very well due to poor appetite. No nausea, no vomiting. PAST MEDICAL HISTORY: Significant for penile cancer, mitral valve prolapse, and . ALLERGIES: No known drug allergies. SOCIAL HISTORY: No alcohol, drinks every day, but no illicit drug use or tobacco use. MEDICATIONS: Reviewed and as documented on [employer]. FAMILY HISTORY: Significant for kidney disease. REVIEW OF SYSTEMS: As documented in the body of the history. All the other systems were reviewed an d found not to be significantly related to presenting illness. PHYSICAL EXAMINATION: GENERAL: Patient was found not to be in any obvious distress noted with the following vital signs. VITAL SIGNS: Afebrile with temperature 97.8, pulse 74, respiratory rate 16, O2 sat of 94%, blood pre ssure 119/58. HEENT: Unremarkable. Moist oral mucosa. Neck: Supple, no conjunctival injection or icterus. CARDIOVASCULAR SYSTEM: First and heart sounds were heard. RESPIRATORY SYSTEM: Clear to auscultation. DIGESTIVE SYSTEM: Revealed a benign abdomen with positive bowel sounds. EXTREMITIES: No peripheral edema. SKIN: No new gross rash. LYMPHATICS: No peripheral lymphadenopathy. SUMMARY: A 72-year-old gentleman with penile carcinoma who is experiencing hyponatremia. Thank you for this consultation. We will follow with you.
--- NOTE | 2018-05-01 11:11 | PRG ---
DATE OF SERVICE: 05/01/2018 SUBJECTIVE: The patient was seen and examined noted with the following. PHYSICAL EXAMINATION: VITAL SIGNS: Afebrile with temperature 98, pulse 64, respiratory rate of 18, O2 sat 95% with blood p ressure 149/69. HEENT: Unremarkable with moist oral mucosa. Neck is supple. No conjunctival injection or icterus. CARDIOVASCULAR SYSTEM: First and second heart sounds were heard. RESPIRATORY SYSTEM: Clear to auscultation. DIGESTIVE SYSTEM: Revealed a benign abdomen with positive bowel sounds. EXTREMITIES: No peripheral edema. SKIN: No new gross rash. LYMPHATICS: No peripheral lymphadenopathy. LABORATORY INVESTIGATIONS: Significant for sodium that dipped down to 124. Repeat urine chemistry s howed good urine osmolarity to be 389 and urine sodium 131. This is totally different from the urine chemistry of yesterday. IMPRESSION: Hyponatremia. 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 PLAN: 1. We will give this patient Vaprisol and repeat the sodium level in the next couple of hours. 2. Restrict free water to about 1.5 liters in 24 hours. 3. Increase protein intake in the way of animal meat.
--- NOTE | 2018-05-01 12:47 | PDOC.PN ---
- Subjective Encounter Start Date: 05/01/18 Encounter Start Time: 12:45 Subjective: npo new complaints, feels well. no N/V/D/AP -: no cough/SOB - Objective Resuscitation Status: Resuscitation Status FULL:Full Resuscitation MAR Reviewed: Yes Vital Signs & Weight: Vital Signs (12 hours) Temp Pulse Resp BP Pulse Ox 05/01/18 12:13 98.2 F 71 18 119/58 L 90 L 05/01/18 08:07 98 F 64 18 149/69 H 95 05/01/18 08:00 98 F 64 18 95 Weight Weight 211 lb 3.2 oz I&O: 04/30/18 05/01/18 05/02/18 06:59 06:59 06:59 Intake Total 2550 2660 Output Total 2750 4225 Balance -200 -1565 Result Diagrams: 05/01/18 04:50 05/01/18 08:34 Additional Labs: Microbiology 04/29/18 10:45 Urine clean catch Urine Culture - Preliminary NO GROWTH AT 24 HOURS 04/29/18 10:36 Venous blood - Left Hand Blood Culture - Preliminary Specimen has been received and culture in progress. No Growth to date. 04/29/18 10:36 Venous blood - Left Arm Blood Culture - Preliminary Specimen has been received and culture in progress. No Growth to date. Laboratory Tests 04/26/18 04/26/18 04/27/18 09:59 09:59 03:53 WBC 13.9 H Plt Count 226 Sodium 132 L 135 L Urine Osmolality Urine Sodium 04/27/18 04/28/18 04/28/18 03:53 05:00 05:00 WBC 6.3 13.9 H Plt Count 204 165 Sodium 136 Urine Osmolality Urine Sodium 04/29/18 04/29/18 04/30/18 05:40 05:40 05:18 WBC 15.7 H Plt Count 101 L Sodium 133 L 126 L Urine Osmolality Urine Sodium 04/30/18 04/30/18 05/01/18 05:18 13:50 04:50 WBC 12.4 H Plt Count 74 L Sodium 124 L Urine Osmolality 223 L Urine Sodium 68 05/01/18 04:50 WBC 5.0 Plt Count 64 L Sodium Urine Osmolality Urine Sodium labs reviewed Phys Exam - Physical Examination Constitutional: NAD HEENT: PERRLA, moist MMs, sclera anicteric, oral pharynx no lesions Neck: no nodes, no JVD, supple, full ROM Respiratory: no wheezing, no rales, no rhonchi, clear to auscultation bilateral Cardiovascular: RRR, no significant murmur, no rub Gastrointestinal: soft, non-tender, no distention, positive bowel sounds Musculoskeletal: no edema, pulses present Neurological: non-focal, normal sensation, moves all 4 limbs Psychiatric: normal affect, A&O x 3 Skin: no rash Dx/Plan (1) Hyponatremia Code(s): E87.1 - HYPO-OSMOLALITY AND HYPONATREMIA Status: Acute Comment: Devi TORRES (2) Thrombocytopenia Code(s): D69.6 - THROMBOCYTOPENIA, UNSPECIFIED Status: Acute (3) SIRS (systemic inflammatory response syndrome) Code(s): R65.10 - SIRS OF NON-INFECTIOUS ORIGIN W/O ACUTE ORGAN DYSFUNCTION Status: Acute Comment: low grade fever, tachycardia, leukocytosis -resolved., likely chemo effect though will need to watch closely for worsening or signs of infection (4) Metastatic squamous cell carcinoma Code(s): C79.9 - SECONDARY MALIGNANT NEOPLASM OF UNSPECIFIED SITE Status: Acute Comment: involving the inguinal lymph node, admitted for chemotherapy, scheduled excision with surgeon in [place] on 05/05, Dr. Fried following (5) Penile cancer Status: Acute (6) Mitral valve prolapse Code(s): I34.1 - NONRHEUMATIC MITRAL (VALVE) PROLAPSE Status: Chronic - Plan DVT proph w/SCDs Sodium even lower today.devi TORRES.discussed w nephrology -: will start conivaptan & fluid restriction -: DC IVF.hemodynamically stable -: repeat labs in am -: Platelet lower. locenox stopped yesterdayy.d/t recent chemoRx.,monitor * . Review of Systems - Review of Systems Constitutional: negative: fever, chills, sweats, weakness, malaise, other ENT: negative: Ear Pain, Ear Discharge, Nose Pain, Nose Discharge, Nose Congestion, Mouth Pain, Mouth Swelling, Throat Pain, Throat Swelling, Other Respiratory: negative: Cough, Dry, Shortness of Breath, Hemoptysis, SOB with Excertion, Pleuritic Pain, Sputum, Wheezing Cardiovascular: negative: chest pain, palpitations, orthopnea, paroxysmal nocturnal dyspnea, edema, light headedness, other Gastrointestinal: negative: Nausea, Vomiting, Abdominal Pain, Diarrhea, Constipation, Melena, Hematochezia, Other Genitourinary: negative: Dysuria, Frequency, Incontinence, Hematuria, Retention , Other Musculoskeletal: negative: Neck Pain, Shoulder Pain, Arm Pain, Back Pain, Hand Pain, Leg Pain, Foot Pain, Other Skin: negative: Rash, Lesions, Edu, Bruising, Other Neurological: negative: Weakness, Numbness, Incoordination, Change in Speech, Confusion, Seizures, Other - Medications/Allergies Allergies/Adverse Reactions: Allergies Allergy/AdvReac Type Severity Reaction Status Date / Time No Known Allergies Allergy Verified 04/26/18 12:08 Medications: Current Medications Acetaminophen (Tylenol) 650 mg PO Q4H PRN PRN Reason: Headache/Fever or Pain Last Admin: 04/28/18 09:52 Dose: 650 mg Hydrocodone Bitart/Acetaminophen ([place] 10/325) 1 tab PO Q4H PRN PRN Reason: Moderate Pain (4-6) Last Admin: 04/30/18 16:16 Dose: 1 tab Hydrocodone Bitart/Acetaminophen ([place] 10/325) 2 tab PO Q4H PRN PRN Reason: Moderate to Severe Pain (6-10) Last Admin: 04/30/18 21:59 Dose: 2 tab Al Hydroxide/Mg Hydroxide (Maalox) 30 ml PO Q6H PRN PRN Reason: Heartburn or Indigestion Benzonatate (Tessalon) 100 mg PO Q4H PRN PRN Reason: Cough Bisacodyl (Dulcolax) 10 mg PO DAILYPRN PRN PRN Reason: Constipation Last Admin: 04/27/18 14:16 Dose: 10 mg Calcium Carbonate (Tums) 1,000 mg PO Q4H PRN PRN Reason: Heartburn or Indigestion Clonidine (Catapres) 0.1 mg PO Q4H PRN PRN Reason: Systolic BP > 160 Docusate Sodium (Colace) 100 mg PO BID [facility] Last Admin: 05/01/18 09:01 Dose: 100 mg Famotidine (Pepcid) 20 mg PO BID [facility] Last Admin: 05/01/18 09:01 Dose: 20 mg Guaifenesin (Robitussin Sf) 200 mg PO Q4H PRN PRN Reason: Cough Hydralazine HCl (Apresoline) 10 mg SLOW IVP Q4H PRN PRN Reason: Systolic BP > 170 Potassium Chloride 10 meq/ (Sodium Chloride) 1,005 mls @ 0 mls/hr IV .Q0M [facility] PRN Reason: As Directed Last Admin: 04/30/18 18:07 Dose: 1,005 mls Loratadine (Claritin) 10 mg PO DAILYPRN PRN PRN Reason: Sinus Symptoms Ondansetron HCl (Zofran) 8 mg IVP Q6H PRN PRN Reason: Nausea/Vomiting Last Admin: 04/30/18 21:51 Dose: 8 mg Pegfilgrastim (Neulasta) 6 mg SQ WILLCALL [facility] Last Admin: 04/28/18 19:31 Dose: 6 mg Promethazine HCl (Phenergan) 25 mg PO Q6H PRN PRN Reason: Nausea Last Admin: 05/01/18 09:01 Dose: 25 mg Senna (Senokot) 2 tab PO HSPRN PRN PRN Reason: Constipation Last Admin: 04/30/18 15:11 Dose: 2 tab Tramadol HCl (Ultram) 50 mg PO Q4H PRN PRN Reason: Moderate Pain (4-6) Last Admin: 04/30/18 19:14 Dose: 50 mg Trazodone HCl (Desyrel) 50 mg PO HSPRN PRN PRN Reason: Insomnia
[2018-05-01 15:29] LABS: Sodium 126 mmol/L (136-145)
[2018-05-01] MEDS: HYDROcodone/Acetaminophen 10/325 mg Tablet PO PRN (20:39)
[2018-05-01 21:38] LABS: Sodium 125 mmol/L (136-145)
[2018-05-02 06:59] LABS: Platelet Count 29 thou/uL (130-400)
[2018-05-02] MEDS ORDERED: Tolvaptan 15 MG TAB PO SCH (07:00)
[2018-05-02 07:15] LABS: ALT (SGPT) 56 U/L (8-55); AST (SGOT) 40 U/L (5-34); Albumin 3.4 g/dL (3.4-4.8); Alkaline Phosphatase 78 U/L (40-150); Anion Gap 13 mmol/L (10-20); BUN (Urea Nitrogen) 23 mg/dL (8.4-25.7); Bilirubin, Total 1.1 mg/dL (0.2-1.2); Calc. Creatinine Clearance 80 mL/min (70-130); Calcium 8.8 mg/dL (7.8-10.44); Carbon Dioxide 19 mmol/L (23-31); Chloride 96 mmol/L (98-107); Estimated GFR-MDRD 62; Globulin 3.1 g/dL (2.4-3.5); Glucose 115 mg/dL (80-115); Potassium 3.4 mmol/L (3.5-5.1); Protein, Total 6.5 g/dL (5.8-8.1); Sodium 125 mmol/L (136-145)
[2018-05-02 07:40] LABS: Hemoglobin 10.6 g/dL (14.0-18.0); Mean Corpuscular Hemoglobin 34.9 pg (27.0-31.0); Mean Corpuscular Volume 99.6 fL (78.0-98.0); Mean Platelet Volume 11.4 fL (7.4-10.4); RBC Distribution Width 14.8 % (11.5-14.5); Red Blood Cell (RBC) Count 3.03 mill/uL (4.70-6.10); White Blood Cell (WBC) Count 2.1 thou/uL (4.8-10.8)
[2018-05-02] MEDS ORDERED: Potassium Chloride 20 MEQ TAB PO SCH (07:45)
[2018-05-02] MEDS: Docusate 100 MG CAP PO SCH ×2 (08:20→20:46)
[2018-05-02] MEDS: Famotidine 20 MG TAB PO SCH ×2 (08:20→20:45)
[2018-05-02] MEDS: HYDROcodone/Acetaminophen 10/325 mg Tablet PO PRN (08:22)
[2018-05-02 09:09] LABS: Sodium 124 mmol/L (136-145)
[2018-05-02] MEDS: Promethazine 25 MG TAB PO PRN ×2 (11:15→18:41)
[2018-05-02 12:31] LABS: Sodium 127 mmol/L (136-145)
--- NOTE | 2018-05-02 14:41 | PDOC.PN ---
- Subjective Encounter Start Date: 05/02/18 Encounter Start Time: 14:39 Subjective: feels well. still weak but no new complaints -: no AP/CP/SOB.no fever/chills - Objective Resuscitation Status: Resuscitation Status FULL:Full Resuscitation MAR Reviewed: Yes Vital Signs & Weight: Vital Signs (12 hours) Temp Pulse Pulse Resp BP 05/02/18 12:35 98.1 F 85 16 119/59 L 05/02/18 11:43 97.6 F 85 16 112/66 05/02/18 11:28 97.9 F 74 16 112/60 05/02/18 08:00 97.6 F 85 16 Weight Weight 211 lb 3.2 oz I&O: 05/01/18 05/02/18 05/03/18 06:59 06:59 06:59 Intake Total 2660 840 250 Output Total 4225 1700 Balance -1565 -860 250 Result Diagrams: 05/02/18 06:21 05/02/18 12:02 Additional Labs: Laboratory Tests 04/12/18 05/02/18 14:39 06:21 AST 21 40 H ALT 21 56 H labs reviewed Microbiology 04/29/18 10:36 Venous blood - Left Hand Blood Culture - Preliminary NO GROWTH AT 48 HOURS 04/29/18 10:36 Venous blood - Left Arm Blood Culture - Preliminary NO GROWTH AT 48 HOURS Phys Exam - Physical Examination Constitutional: NAD HEENT: PERRLA, moist MMs, sclera anicteric, oral pharynx no lesions Neck: no nodes, no JVD, supple, full ROM Respiratory: no wheezing, no rales, no rhonchi, clear to auscultation bilateral Cardiovascular: RRR, no significant murmur, no rub Gastrointestinal: soft, non-tender, no distention, positive bowel sounds Musculoskeletal: no edema, pulses present Neurological: non-focal, normal sensation, moves all 4 limbs left inguinal LAP,less erythema & warmth Psychiatric: normal affect, A&O x 3 Skin: no rash Dx/Plan (1) Pancytopenia due to chemotherapy Code(s): D61.810 - ANTINEOPLASTIC CHEMOTHERAPY INDUCED PANCYTOPENIA Status: Acute (2) Hyponatremia Code(s): E87.1 - HYPO-OSMOLALITY AND HYPONATREMIA Status: Acute Comment: Likley SIADH (3) Thrombocytopenia Code(s): D69.6 - THROMBOCYTOPENIA, UNSPECIFIED Status: Acute Comment: worse today (4) SIRS (systemic inflammatory response syndrome) Code(s): R65.10 - SIRS OF NON-INFECTIOUS ORIGIN W/O ACUTE ORGAN DYSFUNCTION Status: Acute Comment: low grade fever, tachycardia, leukocytosis -resolved., likely chemo effect though will need to watch closely for worsening or signs of infection (5) Metastatic squamous cell carcinoma Code(s): C79.9 - SECONDARY MALIGNANT NEOPLASM OF UNSPECIFIED SITE Status: Acute Comment: involving the inguinal lymph node, admitted for chemotherapy, scheduled excision with surgeon in [place] on 05/05, Dr. Fried following (6) Penile cancer Status: Acute (7) Mitral valve prolapse Code(s): I34.1 - NONRHEUMATIC MITRAL (VALVE) PROLAPSE Status: Chronic - Plan PT/OT, out of bed/ambulate, DVT proph w/SCDs transfuse platelets today.monitor trend. -: WBc lower due to chemoRx.monitor. -: sodium slightly better.cont Volvaptan,fluid restriction.follow. -: appreciate nephrology input. -: monitor closely. not ready for DC yet. AM labs. Cx all negative so far * . Review of Systems - Review of Systems Constitutional: weakness, malaise. negative: fever, chills, sweats, other Respiratory: negative: Cough, Dry, Shortness of Breath, Hemoptysis, SOB with Excertion, Pleuritic Pain, Sputum, Wheezing Cardiovascular: negative: chest pain, palpitations, orthopnea, paroxysmal nocturnal dyspnea, edema, light headedness, other Gastrointestinal: negative: Nausea, Vomiting, Abdominal Pain, Diarrhea, Constipation, Melena, Hematochezia, Other Genitourinary: negative: Dysuria, Frequency, Incontinence, Hematuria, Retention , Other Skin: negative: Rash, Lesions, Edu, Bruising, Other Neurological: negative: Weakness, Numbness, Incoordination, Change in Speech, Confusion, Seizures, Other - Medications/Allergies Allergies/Adverse Reactions: Allergies Allergy/AdvReac Type Severity Reaction Status Date / Time No Known Allergies Allergy Verified 04/26/18 12:08 Medications: Current Medications Acetaminophen (Tylenol) 650 mg PO Q4H PRN PRN Reason: Headache/Fever or Pain Last Admin: 04/28/18 09:52 Dose: 650 mg Hydrocodone Bitart/Acetaminophen ([place] 10/325) 1 tab PO Q4H PRN PRN Reason: Moderate Pain (4-6) Last Admin: 04/30/18 16:16 Dose: 1 tab Hydrocodone Bitart/Acetaminophen ([place] 10/325) 2 tab PO Q4H PRN PRN Reason: Moderate to Severe Pain (6-10) Last Admin: 05/02/18 08:22 Dose: 2 tab Al Hydroxide/Mg Hydroxide (Maalox) 30 ml PO Q6H PRN PRN Reason: Heartburn or Indigestion Benzonatate (Tessalon) 100 mg PO Q4H PRN PRN Reason: Cough Bisacodyl (Dulcolax) 10 mg PO DAILYPRN PRN PRN Reason: Constipation Last Admin: 04/27/18 14:16 Dose: 10 mg Calcium Carbonate (Tums) 1,000 mg PO Q4H PRN PRN Reason: Heartburn or Indigestion Clonidine (Catapres) 0.1 mg PO Q4H PRN PRN Reason: Systolic BP > 160 Docusate Sodium (Colace) 100 mg PO BID [facility] Last Admin: 05/02/18 08:20 Dose: Not Given Famotidine (Pepcid) 20 mg PO BID [facility] Last Admin: 05/02/18 08:20 Dose: 20 mg Guaifenesin (Robitussin Sf) 200 mg PO Q4H PRN PRN Reason: Cough Hydralazine HCl (Apresoline) 10 mg SLOW IVP Q4H PRN PRN Reason: Systolic BP > 170 Potassium Chloride 10 meq/ (Sodium Chloride) 1,005 mls @ 0 mls/hr IV .Q0M [facility] PRN Reason: As Directed Last Admin: 04/30/18 18:07 Dose: 1,005 mls Loratadine (Claritin) 10 mg PO DAILYPRN PRN PRN Reason: Sinus Symptoms Ondansetron HCl (Zofran) 8 mg IVP Q6H PRN PRN Reason: Nausea/Vomiting Last Admin: 04/30/18 21:51 Dose: 8 mg Pegfilgrastim (Neulasta) 6 mg SQ WILLCALL [facility] Last Admin: 04/28/18 19:31 Dose: 6 mg Promethazine HCl (Phenergan) 25 mg PO Q6H PRN PRN Reason: Nausea Last Admin: 05/02/18 11:15 Dose: 25 mg Senna (Senokot) 2 tab PO HSPRN PRN PRN Reason: Constipation Last Admin: 04/30/18 15:11 Dose: 2 tab Tolvaptan (Samsca) 15 mg PO 0700 [facility] Tramadol HCl (Ultram) 50 mg PO Q4H PRN PRN Reason: Moderate Pain (4-6) Last Admin: 04/30/18 19:14 Dose: 50 mg Trazodone HCl (Desyrel) 50 mg PO HSPRN PRN PRN Reason: Insomnia
--- NOTE | 2018-05-02 16:52 | PRG ---
DATE OF SERVICE: 05/02/2018 SUBJECTIVE: The patient was seen and examined noted with the following. PHYSICAL EXAMINATION: VITAL SIGNS: Afebrile with temperature 97.6, pulse 85, respiratory rate of 16 and blood pressure 102 /66. HEENT: Unremarkable with moist oral mucosa. No conjunctival injection or icterus. NECK: Supple. CARDIOVASCULAR: First and second heart sounds were heard. RESPIRATORY: Clear to auscultation. DIGESTIVE: Revealed a benign abdomen. Positive bowel sounds. EXTREMITIES: No peripheral edema. SKIN: No new gross rash. LYMPHATICS: No peripheral lymphadenopathy. LABORATORY INVESTIGATION: Showed sodium level of 125 with a potassium of 3.4. White count of 2.1, h emoglobin 10.6, platelets of 29,000. IMPRESSION: Hyponatremia in the context of syndrome of inappropriate antidiuretic hormone, which is somewhat labile. PLAN: 1. We will start this patient on tolvaptan orally once a day and follow the sodium level accordingly . 2. Further management to be dependent on the clinical course.
[2018-05-02] MEDS: Ondansetron HCl/PF 4 MG/2 ML Vial IVP PRN (17:32)
[2018-05-03] MEDS: HYDROcodone/Acetaminophen 10/325 mg Tablet PO PRN ×2 (01:16→18:39)
[2018-05-03] MEDS ORDERED: Tolvaptan 15 MG TAB PO SCH (07:00)
[2018-05-03 08:39] LABS: Hemoglobin 10.1 g/dL (14.0-18.0); Mean Corpuscular Hemoglobin 34.4 pg (27.0-31.0); Mean Corpuscular Volume 98.3 fL (78.0-98.0); Platelet Count 32 thou/uL (130-400); RBC Distribution Width 14.5 % (11.5-14.5); Red Blood Cell (RBC) Count 2.93 mill/uL (4.70-6.10); White Blood Cell (WBC) Count 0.6 thou/uL (4.8-10.8)
[2018-05-03 08:41] LABS: Anion Gap 11 mmol/L (10-20); BUN (Urea Nitrogen) 25 mg/dL (8.4-25.7); Calc. Creatinine Clearance 72 mL/min (70-130); Calcium 8.9 mg/dL (7.8-10.44); Carbon Dioxide 24 mmol/L (23-31); Chloride 96 mmol/L (98-107); Estimated GFR-MDRD 55; Glucose 123 mg/dL (80-115); Potassium 3.4 mmol/L (3.5-5.1); Sodium 128 mmol/L (136-145)
[2018-05-03] MEDS: Famotidine 20 MG TAB PO SCH ×2 (08:52→20:42)
[2018-05-03] MEDS ORDERED: Potassium Chloride 20 MEQ TAB PO SCH (09:15)
[2018-05-03 09:36] LABS: Band 5 % (5-11); Lymphocytes 80 % (21-51); MDiff Complete? YES; Neutrophil 15 % (42-75); PLT Morphology Comment Appears Decreased; RBC Morphology Normal
[2018-05-03] MEDS ORDERED: Sodium Chloride 0.9% 500 ML IV SCH (10:30)
[2018-05-03] MEDS: Docusate 100 MG CAP PO SCH ×2 (10:38→20:42)
[2018-05-03] MEDS: Sodium Chloride 0.9% 1,000 ML IV SCH ×2 (10:56→22:48)
--- NOTE | 2018-05-03 12:23 | PDOC.PN ---
- Subjective Encounter Start Date: 05/03/18 Encounter Start Time: 12:21 Subjective: felt weak this morning.no F/C/N/V/D. no CP/SOB - Objective Resuscitation Status: Resuscitation Status FULL:Full Resuscitation MAR Reviewed: Yes Vital Signs & Weight: Vital Signs (12 hours) Temp Pulse Resp BP Pulse Ox 05/03/18 11:55 97.6 F 76 16 105/58 L 97 05/03/18 08:50 97.5 F L 75 16 05/03/18 07:57 97.5 F L 75 16 104/59 L 95 Weight Weight 211 lb 3.2 oz I&O: 05/02/18 05/03/18 05/04/18 06:59 06:59 06:59 Intake Total 840 1710 Output Total 1700 850 Balance -860 860 Result Diagrams: 05/03/18 07:58 05/03/18 07:58 Additional Labs: Accuchecks 05/03/18 09:57 POC Glucose 146 H Microbiology 04/29/18 10:45 Urine clean catch Urine Culture - Final NO GROWTH AT 48 HOURS 04/29/18 10:36 Venous blood - Left Hand Blood Culture - Preliminary NO GROWTH AT 48 HOURS 04/29/18 10:36 Venous blood - Left Arm Blood Culture - Preliminary NO GROWTH AT 48 HOURS labs reviewed Phys Exam - Physical Examination Constitutional: NAD HEENT: PERRLA, moist MMs, sclera anicteric, TM's clear, oral pharynx no lesions , 2+ tonsils Neck: no nodes, no JVD, supple, full ROM Respiratory: no wheezing, no rales, no rhonchi, clear to auscultation bilateral Cardiovascular: RRR, no significant murmur, no rub Gastrointestinal: soft, non-tender, no distention, positive bowel sounds Musculoskeletal: no edema, pulses present Neurological: non-focal, normal sensation, moves all 4 limbs Left inguinal LAP Psychiatric: normal affect, A&O x 3 Skin: no rash Dx/Plan (1) Hypotension Status: Acute (2) Pancytopenia due to chemotherapy Code(s): D61.810 - ANTINEOPLASTIC CHEMOTHERAPY INDUCED PANCYTOPENIA Status: Acute Comment: Discussed with Oncology. No Rx needed. Received Neulasta post chemoRx (3) Hyponatremia Code(s): E87.1 - HYPO-OSMOLALITY AND HYPONATREMIA Status: Acute Comment: Likley SIADH (4) Thrombocytopenia Code(s): D69.6 - THROMBOCYTOPENIA, UNSPECIFIED Status: Acute Comment: S/P Platelet transfusion 05/02/16 (5) SIRS (systemic inflammatory response syndrome) Code(s): R65.10 - SIRS OF NON-INFECTIOUS ORIGIN W/O ACUTE ORGAN DYSFUNCTION Status: Acute Comment: low grade fever, tachycardia, leukocytosis -resolved., likely chemo effect though will need to watch closely for worsening or signs of infection (6) Metastatic squamous cell carcinoma Code(s): C79.9 - SECONDARY MALIGNANT NEOPLASM OF UNSPECIFIED SITE Status: Acute Comment: involving the inguinal lymph node, admitted for chemotherapy, scheduled excision with surgeon in [place] on 05/05, Dr. Fried following (7) Penile cancer Status: Acute (8) Mitral valve prolapse Code(s): I34.1 - NONRHEUMATIC MITRAL (VALVE) PROLAPSE Status: Chronic - Plan PT/OT, respiratory therapy, incentive spirometry, out of bed/ambulate, DVT proph w/SCDs Pt was cleared by Onc & Nephrology for Dc and discharged -: he became lightheaded & hypotensive-suspect hypovolemia -: DC cancelled-NS bolus foloowed by NS infusion started.monitor -: discussed again w nephrology w IVf & hyponatremia.Ok to cont Tolvaptan -: am labs * . Review of Systems - Review of Systems Constitutional: weakness. negative: fever, chills, sweats, malaise, other ENT: negative: Ear Pain, Ear Discharge, Nose Pain, Nose Discharge, Nose Congestion, Mouth Pain, Mouth Swelling, Throat Pain, Throat Swelling, Other Respiratory: negative: Cough, Dry, Shortness of Breath, Hemoptysis, SOB with Excertion, Pleuritic Pain, Sputum, Wheezing Cardiovascular: negative: chest pain, palpitations, orthopnea, paroxysmal nocturnal dyspnea, edema, light headedness, other Gastrointestinal: negative: Nausea, Vomiting, Abdominal Pain, Diarrhea, Constipation, Melena, Hematochezia, Other Genitourinary: negative: Dysuria, Frequency, Incontinence, Hematuria, Retention , Other Musculoskeletal: negative: Neck Pain, Shoulder Pain, Arm Pain, Back Pain, Hand Pain, Leg Pain, Foot Pain, Other Skin: negative: Rash, Lesions, Edu, Bruising, Other Neurological: negative: Weakness, Numbness, Incoordination, Change in Speech, Confusion, Seizures, Other - Medications/Allergies Allergies/Adverse Reactions: Allergies Allergy/AdvReac Type Severity Reaction Status Date / Time No Known Allergies Allergy Verified 04/26/18 12:08 Medications: Current Medications Acetaminophen (Tylenol) 650 mg PO Q4H PRN PRN Reason: Headache/Fever or Pain Last Admin: 04/28/18 09:52 Dose: 650 mg Hydrocodone Bitart/Acetaminophen ([place] 10/325) 1 tab PO Q4H PRN PRN Reason: Moderate Pain (4-6) Last Admin: 04/30/18 16:16 Dose: 1 tab Hydrocodone Bitart/Acetaminophen ([place] 10/325) 2 tab PO Q4H PRN PRN Reason: Moderate to Severe Pain (6-10) Last Admin: 05/03/18 01:16 Dose: 2 tab Al Hydroxide/Mg Hydroxide (Maalox) 30 ml PO Q6H PRN PRN Reason: Heartburn or Indigestion Benzonatate (Tessalon) 100 mg PO Q4H PRN PRN Reason: Cough Bisacodyl (Dulcolax) 10 mg PO DAILYPRN PRN PRN Reason: Constipation Last Admin: 04/27/18 14:16 Dose: 10 mg Calcium Carbonate (Tums) 1,000 mg PO Q4H PRN PRN Reason: Heartburn or Indigestion Clonidine (Catapres) 0.1 mg PO Q4H PRN PRN Reason: Systolic BP > 160 Docusate Sodium (Colace) 100 mg PO BID [facility] Last Admin: 05/03/18 10:38 Dose: Not Given Famotidine (Pepcid) 20 mg PO BID [facility] Last Admin: 05/03/18 08:52 Dose: 20 mg Guaifenesin (Robitussin Sf) 200 mg PO Q4H PRN PRN Reason: Cough Hydralazine HCl (Apresoline) 10 mg SLOW IVP Q4H PRN PRN Reason: Systolic BP > 170 Potassium Chloride 10 meq/ (Sodium Chloride) 1,005 mls @ 0 mls/hr IV .Q0M [facility] PRN Reason: As Directed Last Admin: 04/30/18 18:07 Dose: 1,005 mls Sodium Chloride (Normal Saline 0.9%) 1,000 mls @ 100 mls/hr IV .Q10H [facility] Last Admin: 05/03/18 10:56 Dose: 1,000 mls Loratadine (Claritin) 10 mg PO DAILYPRN PRN PRN Reason: Sinus Symptoms Ondansetron HCl (Zofran) 8 mg IVP Q6H PRN PRN Reason: Nausea/Vomiting Last Admin: 05/02/18 17:32 Dose: 8 mg Pegfilgrastim (Neulasta) 6 mg SQ WILLCALL [facility] Last Admin: 04/28/18 19:31 Dose: 6 mg Promethazine HCl (Phenergan) 25 mg PO Q6H PRN PRN Reason: Nausea Last Admin: 05/02/18 18:41 Dose: 25 mg Senna (Senokot) 2 tab PO HSPRN PRN PRN Reason: Constipation Last Admin: 04/30/18 15:11 Dose: 2 tab Tolvaptan (Samsca) 15 mg PO 0700 [facility] Last Admin: 05/03/18 06:36 Dose: 15 mg Tramadol HCl (Ultram) 50 mg PO Q4H PRN PRN Reason: Moderate Pain (4-6) Last Admin: 04/30/18 19:14 Dose: 50 mg Trazodone HCl (Desyrel) 50 mg PO HSPRN PRN PRN Reason: Insomnia
[2018-05-03 16:31] LABS: Sodium 131 mmol/L (136-145)
[2018-05-03] MEDS ORDERED: Sodium Chloride 0.9% 500 ML IVPB SCH (18:15)
[2018-05-03] MEDS: Promethazine 25 MG TAB PO PRN (18:40)
[2018-05-04 05:44] LABS: Platelet Count 14 thou/uL (130-400); White Blood Cell (WBC) Count 0.6 thou/uL (4.8-10.8)
[2018-05-04 05:50] LABS: Anion Gap 10 mmol/L (10-20); BUN (Urea Nitrogen) 21 mg/dL (8.4-25.7); Calc. Creatinine Clearance 85 mL/min (70-130); Calcium 8.4 mg/dL (7.8-10.44); Carbon Dioxide 23 mmol/L (23-31); Chloride 104 mmol/L (98-107); Estimated GFR-MDRD 66; Glucose 109 mg/dL (80-115); Potassium 4.2 mmol/L (3.5-5.1); Sodium 133 mmol/L (136-145)
[2018-05-04 07:06] LABS: Hemoglobin 8.4 g/dL (14.0-18.0); Mean Corpuscular HGB CONC 35.7 g/dL (32.0-36.0); Mean Corpuscular Hemoglobin 35.4 pg (27.0-31.0); Mean Corpuscular Volume 99.1 fL (78.0-98.0); Mean Platelet Volume 12.9 fL (7.4-10.4); RBC Distribution Width 14.7 % (11.5-14.5); Red Blood Cell (RBC) Count 2.38 mill/uL (4.70-6.10)
[2018-05-04] MEDS: Sodium Chloride 0.9% 1,000 ML IV SCH ×2 (07:41→23:49)
[2018-05-04] MEDS: Famotidine 20 MG TAB PO SCH ×2 (07:45→20:57)
[2018-05-04] MEDS: traMADol HCl 50 MG TAB PO PRN ×3 (07:45→18:32)
[2018-05-04] MEDS: Docusate 100 MG CAP PO SCH ×2 (07:47→20:58)
--- NOTE | 2018-05-04 08:30 | PRG ---
DATE OF SERVICE: 05/03/2018 SUBJECTIVE: The patient was seen and examined, seems to be doing much better with sodium that has gone up to 128. However, unfortunately on getting ready to be discharged from the hospital, the patient became very weak /hypotensive and decision was taken to keep this patient back due to labile hemodynamics. OBJECTIVE: VITAL SIGNS: Blood pressure of 104/59, pulse 75, respiratory rate 16, afebrile , and O2 sat 95%. HEENT: Unremarkable. CARDIOVASCULAR: First and second heart sounds were heard. RESPIRATORY: Clear to auscultation. DIGESTIVE: Revealed a benign abdomen with positive bowel sounds. EXTREMITIES: No peripheral edema. SKIN: No new gross rash. LYMPHATICS: No peripheral lymphadenopathy. LABORATORY DATA: Sodium of 128. IMPRESSION: 1. Hyponatremia(multifactorial) in the context of syndrome of inappropriate antidiuretic hormone, query reason why.compounded by intrascular depletion 2. Labile hemodynamics likely due to intravascular depletion 3. Pancytopenia in the context of chemotherapy. PLAN: 1. IV fluid bolus with normal saline and then continue with normal saline maintenance. 2. In the light of potential SIADH, we will keep conivaptan on board while patient is being resuscitated with normal saline. 3. Repeat serum sodium level later today and make further adjustments accordingly. 4.D/c fluid restriction for now MTDD
[2018-05-04 09:06] LABS: Lymphocytes 80 % (21-51); MDiff Complete? YES; Neutrophil 5 % (42-75); PLT Morphology Comment Appears Decreased; Polychromasia SLIGHT = 2-3 cells (100X) (0-2/hpf); RBC Morphology Normal; Reactive Lymphocytes 15 % (0-10)
[2018-05-04 10:47] LABS: Bilirubin Negative (Negative); Blood, Urine Moderate (Negative); Clarity CLEAR (Clear); Glucose, Urine (Dipstick) Negative (Negative); Leukocyte Negative (Negative); Nitrite Negative (Negative); Protein, Urine (Dipstick) Negative (Neg-Trace); Specific Gravity, Urine 1.013 (1.002-1.036); Urobilinogen 0.2 mg/dL (0.2-1.0)
[2018-05-04 10:49] LABS: Bacteria/HPF None Seen HPF (None Seen); Hyaline Casts/LPF 0-3 HYALINE CAST LPF (0-3 Hyaline); Pathc Cast-AUWi Flag 0.43 (0-2.49); Squamous Epithelial 0-3 HPF (0-3)
--- NOTE | 2018-05-04 13:44 | PDOC.PN ---
- Subjective Encounter Start Date: 05/04/18 Encounter Start Time: 13:42 Subjective: feels weak but better than yesterday. -: denies any CP/SOB/AP/N/V/D.no dysuria - Objective Resuscitation Status: Resuscitation Status FULL:Full Resuscitation MAR Reviewed: Yes Vital Signs & Weight: Vital Signs (12 hours) Temp Pulse Pulse Resp BP BP BP 05/04/18 12:50 98.8 F 78 20 127/60 05/04/18 11:05 99.3 F 70 20 117/60 05/04/18 10:50 99.3 F 76 20 121/61 05/04/18 08:03 98.4 F 77 16 123/58 L 05/04/18 08:00 98.4 F 77 16 05/04/18 06:39 99.6 F 05/04/18 04:00 98.8 F 77 20 153/65 H Pulse Ox 05/04/18 12:50 96 05/04/18 11:05 98 05/04/18 10:50 98 05/04/18 08:03 95 05/04/18 08:00 95 05/04/18 06:39 05/04/18 04:00 96 Weight Weight 211 lb 3.2 oz I&O: 05/03/18 05/04/18 05/05/18 06:59 06:59 06:59 Intake Total 1710 3480 250 Output Total 850 2300 Balance 860 1180 250 Result Diagrams: 05/04/18 05:05 05/04/18 05:05 Additional Labs: labs reviewed Microbiology 05/03/18 14:25 Stool Stool Lactoferrin - Final 05/03/18 14:25 Stool Shiga Toxin Test - Final 05/03/18 14:25 Stool C. difficile GDH Antigen & Toxins - Final 04/29/18 10:45 Urine clean catch Urine Culture - Final NO GROWTH AT 48 HOURS 04/29/18 10:36 Venous blood - Left Hand Blood Culture - Preliminary NO GROWTH AT 48 HOURS 04/29/18 10:36 Venous blood - Left Arm Blood Culture - Preliminary NO GROWTH AT 48 HOURS Phys Exam - Physical Examination Constitutional: NAD HEENT: PERRLA, moist MMs, sclera anicteric, oral pharynx no lesions Neck: no nodes, no JVD, supple, full ROM Respiratory: no wheezing, no rales, no rhonchi, clear to auscultation bilateral Cardiovascular: RRR, no significant murmur, no rub Musculoskeletal: no edema, pulses present Neurological: non-focal, normal sensation, moves all 4 limbs Psychiatric: normal affect, A&O x 3 Skin: no rash Dx/Plan (1) Pancytopenia due to chemotherapy Code(s): D61.810 - ANTINEOPLASTIC CHEMOTHERAPY INDUCED PANCYTOPENIA Status: Acute Comment: Neutropenic now. started on Neutropenic precautions (2) Hyponatremia Code(s): E87.1 - HYPO-OSMOLALITY AND HYPONATREMIA Status: Acute Comment: Nelley SIADH (3) Thrombocytopenia Code(s): D69.6 - THROMBOCYTOPENIA, UNSPECIFIED Status: Acute Comment: S/P Platelet transfusion 05/02/16 (4) SIRS (systemic inflammatory response syndrome) Code(s): R65.10 - SIRS OF NON-INFECTIOUS ORIGIN W/O ACUTE ORGAN DYSFUNCTION Status: Acute Comment: low grade fever, tachycardia, leukocytosis -resolved., likely chemo effect though will need to watch closely for worsening or signs of infection (5) Metastatic squamous cell carcinoma Code(s): C79.9 - SECONDARY MALIGNANT NEOPLASM OF UNSPECIFIED SITE Status: Acute Comment: involving the inguinal lymph node, admitted for chemotherapy, scheduled excision with surgeon in [place] on 05/05, Dr. Fried following (6) Penile cancer Status: Acute (7) Mitral valve prolapse Code(s): I34.1 - NONRHEUMATIC MITRAL (VALVE) PROLAPSE Status: Chronic (8) Hypotension Status: Resolved - Plan incentive spirometry, out of bed/ambulate, DVT proph w/SCDs Low grade fever w Neutropenia.will start Empiric Abx.UA.Blood Cx. -: discussed w Oncology -: Sodium better.Tolvaptan per nephrology.monitor -: on IVF for low BP yesterday.cont .BP better -: platelet lower again today-will transfuse & monitor * . Review of Systems - Review of Systems Constitutional: weakness, malaise. negative: fever, chills, sweats, other ENT: negative: Ear Pain, Ear Discharge, Nose Pain, Nose Discharge, Nose Congestion, Mouth Pain, Mouth Swelling, Throat Pain, Throat Swelling, Other Respiratory: negative: Cough, Dry, Shortness of Breath, Hemoptysis, SOB with Excertion, Pleuritic Pain, Sputum, Wheezing Cardiovascular: negative: chest pain, palpitations, orthopnea, paroxysmal nocturnal dyspnea, edema, light headedness, other Gastrointestinal: negative: Nausea, Vomiting, Abdominal Pain, Diarrhea, Constipation, Melena, Hematochezia, Other Genitourinary: negative: Dysuria, Frequency, Incontinence, Hematuria, Retention , Other Musculoskeletal: negative: Neck Pain, Shoulder Pain, Arm Pain, Back Pain, Hand Pain, Leg Pain, Foot Pain, Other Skin: negative: Rash, Lesions, Edu, Bruising, Other Neurological: negative: Weakness, Numbness, Incoordination, Change in Speech, Confusion, Seizures, Other - Medications/Allergies Allergies/Adverse Reactions: Allergies Allergy/AdvReac Type Severity Reaction Status Date / Time No Known Allergies Allergy Verified 04/26/18 12:08 Medications: Current Medications Acetaminophen (Tylenol) 650 mg PO Q4H PRN PRN Reason: Headache/Fever or Pain Last Admin: 04/28/18 09:52 Dose: 650 mg Hydrocodone Bitart/Acetaminophen ([place] 10/325) 1 tab PO Q4H PRN PRN Reason: Moderate Pain (4-6) Last Admin: 05/03/18 18:39 Dose: 1 tab Hydrocodone Bitart/Acetaminophen ([place] 10/325) 2 tab PO Q4H PRN PRN Reason: Moderate to Severe Pain (6-10) Last Admin: 05/03/18 01:16 Dose: 2 tab Al Hydroxide/Mg Hydroxide (Maalox) 30 ml PO Q6H PRN PRN Reason: Heartburn or Indigestion Benzonatate (Tessalon) 100 mg PO Q4H PRN PRN Reason: Cough Bisacodyl (Dulcolax) 10 mg PO DAILYPRN PRN PRN Reason: Constipation Last Admin: 04/27/18 14:16 Dose: 10 mg Calcium Carbonate (Tums) 1,000 mg PO Q4H PRN PRN Reason: Heartburn or Indigestion Clonidine (Catapres) 0.1 mg PO Q4H PRN PRN Reason: Systolic BP > 160 Docusate Sodium (Colace) 100 mg PO BID [facility] Last Admin: 05/04/18 07:47 Dose: Not Given Famotidine (Pepcid) 20 mg PO BID [facility] Last Admin: 05/04/18 07:45 Dose: 20 mg Guaifenesin (Robitussin Sf) 200 mg PO Q4H PRN PRN Reason: Cough Hydralazine HCl (Apresoline) 10 mg SLOW IVP Q4H PRN PRN Reason: Systolic BP > 170 Potassium Chloride 10 meq/ (Sodium Chloride) 1,005 mls @ 0 mls/hr IV .Q0M [facility] PRN Reason: As Directed Last Admin: 04/30/18 18:07 Dose: 1,005 mls Sodium Chloride (Normal Saline 0.9%) 1,000 mls @ 100 mls/hr IV .Q10H [facility] Last Admin: 05/04/18 07:41 Dose: 1,000 mls Levofloxacin 750 mg/ Device 150 mls @ 100 mls/hr IVPB Q24HR [facility] Last Admin: 05/04/18 12:56 Dose: 150 mls Loratadine (Claritin) 10 mg PO DAILYPRN PRN PRN Reason: Sinus Symptoms Ondansetron HCl (Zofran) 8 mg IVP Q6H PRN PRN Reason: Nausea/Vomiting Last Admin: 05/02/18 17:32 Dose: 8 mg Pegfilgrastim (Neulasta) 6 mg SQ WILLCALL [facility] Last Admin: 04/28/18 19:31 Dose: 6 mg Promethazine HCl (Phenergan) 25 mg PO Q6H PRN PRN Reason: Nausea Last Admin: 05/03/18 18:40 Dose: 25 mg Senna (Senokot) 2 tab PO HSPRN PRN PRN Reason: Constipation Last Admin: 04/30/18 15:11 Dose: 2 tab Sodium Chloride (Flush - Normal Saline) 10 ml IVF Q12HR [facility] Sodium Chloride (Flush - Normal Saline) 10 ml IVF PRN PRN PRN Reason: Saline Flush Tramadol HCl (Ultram) 50 mg PO Q4H PRN PRN Reason: Moderate Pain (4-6) Last Admin: 05/04/18 13:02 Dose: 50 mg Trazodone HCl (Desyrel) 50 mg PO HSPRN PRN PRN Reason: Insomnia
[2018-05-04] MEDS: Promethazine 25 MG TAB PO PRN (18:32)
--- NOTE | 2018-05-04 19:00 | PRG ---
DATE OF SERVICE: 05/04/2018 SUBJECTIVE: The patient was seen and examined, seems to be doing much better, noted with the followi ng vital signs. PHYSICAL EXAMINATION: VITAL SIGNS: Afebrile with temperature 98, pulse 83, respiratory rate 16, O2 sat 97% with a blood pr essure of 124/62. HEENT: Unremarkable with moist oral mucosa. NECK: Supple, no conjunctival injection or icterus. CARDIOVASCULAR: First and second heart sounds were heard. RESPIRATORY: Clear to auscultation. DIGESTIVE: Revealed a benign abdomen with positive bowel sounds. EXTREMITIES: No peripheral edema. SKIN: No new gross rash. LABORATORY INVESTIGATION: Showed a white count of 0.6, hemoglobin 8.4 with platelet of 14,000. Chem istry showed sodium of 133. IMPRESSION: 1. Hyponatremia, multifactorial etiology, seems to be improving. 2. Pancytopenia in the context of chemotherapy. PLAN: 1. The patient to gently continue IV fluid overnight and likely going to be stopped in the morning. 2. Encourage increased nutritional intake in the way of meat and protein. 3. Further management to be dependent on the clinical course.
[2018-05-05 04:26] LABS: Anion Gap 9 mmol/L (10-20); BUN (Urea Nitrogen) 16 mg/dL (8.4-25.7); Calc. Creatinine Clearance 97 mL/min (70-130); Calcium 8.5 mg/dL (7.8-10.44); Carbon Dioxide 24 mmol/L (23-31); Chloride 100 mmol/L (98-107); Estimated GFR-MDRD 77; Glucose 100 mg/dL (80-115); Potassium 3.5 mmol/L (3.5-5.1); Sodium 129 mmol/L (136-145)
[2018-05-05 04:43] LABS: Hemoglobin 7.6 g/dL (14.0-18.0); Mean Corpuscular HGB CONC 35.9 g/dL (32.0-36.0); Mean Corpuscular Volume 97.7 fL (78.0-98.0); Mean Platelet Volume 9.6 fL (7.4-10.4); Platelet Count 19 thou/uL (130-400); RBC Distribution Width 14.2 % (11.5-14.5); Red Blood Cell (RBC) Count 2.18 mill/uL (4.70-6.10); White Blood Cell (WBC) Count 0.6 thou/uL (4.8-10.8)
[2018-05-05 05:15] LABS: Band 14 % (5-11); Lymphocytes 58 % (21-51); MDiff Complete? YES; Monocytes 18 % (0-10); Neutrophil 10 % (42-75); PLT Morphology Comment Appears Decreased
[2018-05-05] MEDS: Sodium Chloride 0.9% 1,000 ML IV SCH (08:23)
[2018-05-05] MEDS: Famotidine 20 MG TAB PO SCH ×2 (08:23→21:50)
[2018-05-05] MEDS: Docusate 100 MG CAP PO SCH ×2 (08:23→21:53)
[2018-05-05] MEDS: traMADol HCl 50 MG TAB PO PRN ×3 (08:27→21:50)
[2018-05-05] MEDS: Promethazine 25 MG TAB PO PRN ×3 (08:27→21:52)
--- NOTE | 2018-05-05 12:21 | PDOC.PN ---
- Subjective Encounter Start Date: 05/05/18 Encounter Start Time: 11:00 Subjective: no sob, feels better - Objective Resuscitation Status: Resuscitation Status FULL:Full Resuscitation MAR Reviewed: Yes Vital Signs & Weight: Vital Signs (12 hours) Temp Pulse Resp BP Pulse Ox 05/05/18 08:20 99 F 82 16 95 05/05/18 07:22 99 F 82 16 119/58 L 95 05/05/18 04:15 99.8 F H 81 18 116/55 L 97 Weight Weight 211 lb 3.2 oz I&O: 05/04/18 05/05/18 05/06/18 06:59 06:59 06:59 Intake Total 3480 2300 Output Total 2300 750 Balance 1180 1550 Result Diagrams: 05/05/18 03:53 05/05/18 03:53 Phys Exam - Physical Examination HEENT: PERRLA, moist MMs Neck: no JVD, supple Respiratory: no wheezing, no rales Cardiovascular: RRR, no significant murmur Gastrointestinal: soft, non-tender, positive bowel sounds b/l ing lymphadenopathy Musculoskeletal: no edema, pulses present Neurological: non-focal, moves all 4 limbs Psychiatric: normal affect, A&O x 3 Dx/Plan (1) Pancytopenia due to chemotherapy Code(s): D61.810 - ANTINEOPLASTIC CHEMOTHERAPY INDUCED PANCYTOPENIA Status: Acute Comment: Neutropenic now. started on Neutropenic precautions (2) Penile cancer Status: Chronic (3) Mitral valve prolapse Code(s): I34.1 - NONRHEUMATIC MITRAL (VALVE) PROLAPSE Status: Chronic (4) Hyponatremia Code(s): E87.1 - HYPO-OSMOLALITY AND HYPONATREMIA Status: Acute Comment: Thompson TORRES - Plan is on PIC chemo along with neulasta -: empiric levaquin for fever and neutopenia -: cultures are -ve so far -: to recieve prbc and platelet transfusion per onc adv today -: is amb in room * . Review of Systems - Medications/Allergies Allergies/Adverse Reactions: Allergies Allergy/AdvReac Type Severity Reaction Status Date / Time No Known Allergies Allergy Verified 04/26/18 12:08 Medications: Current Medications Acetaminophen (Tylenol) 650 mg PO Q4H PRN PRN Reason: Headache/Fever or Pain Last Admin: 04/28/18 09:52 Dose: 650 mg Hydrocodone Bitart/Acetaminophen ([place] 10/325) 1 tab PO Q4H PRN PRN Reason: Moderate Pain (4-6) Last Admin: 05/03/18 18:39 Dose: 1 tab Hydrocodone Bitart/Acetaminophen ([place] 10/325) 2 tab PO Q4H PRN PRN Reason: Moderate to Severe Pain (6-10) Last Admin: 05/03/18 01:16 Dose: 2 tab Al Hydroxide/Mg Hydroxide (Maalox) 30 ml PO Q6H PRN PRN Reason: Heartburn or Indigestion Benzonatate (Tessalon) 100 mg PO Q4H PRN PRN Reason: Cough Bisacodyl (Dulcolax) 10 mg PO DAILYPRN PRN PRN Reason: Constipation Last Admin: 04/27/18 14:16 Dose: 10 mg Calcium Carbonate (Tums) 1,000 mg PO Q4H PRN PRN Reason: Heartburn or Indigestion Clonidine (Catapres) 0.1 mg PO Q4H PRN PRN Reason: Systolic BP > 160 Docusate Sodium (Colace) 100 mg PO BID [facility] Last Admin: 05/05/18 08:23 Dose: Not Given Famotidine (Pepcid) 20 mg PO BID [facility] Last Admin: 05/05/18 08:23 Dose: 20 mg Guaifenesin (Robitussin Sf) 200 mg PO Q4H PRN PRN Reason: Cough Hydralazine HCl (Apresoline) 10 mg SLOW IVP Q4H PRN PRN Reason: Systolic BP > 170 Potassium Chloride 10 meq/ (Sodium Chloride) 1,005 mls @ 0 mls/hr IV .Q0M [facility] PRN Reason: As Directed Last Admin: 04/30/18 18:07 Dose: 1,005 mls Levofloxacin 750 mg/ Device 150 mls @ 100 mls/hr IVPB Q24HR [facility] Last Admin: 05/04/18 12:56 Dose: 150 mls Cefepime HCl 2 gm/ Sodium (Chloride) 100 mls @ 200 mls/hr IVPB Q8HR [facility] Loratadine (Claritin) 10 mg PO DAILYPRN PRN PRN Reason: Sinus Symptoms Ondansetron HCl (Zofran) 8 mg IVP Q6H PRN PRN Reason: Nausea/Vomiting Last Admin: 05/02/18 17:32 Dose: 8 mg Pegfilgrastim (Neulasta) 6 mg SQ [facility] Last Admin: 04/28/18 19:31 Dose: 6 mg Promethazine HCl (Phenergan) 25 mg PO Q6H PRN PRN Reason: Nausea Last Admin: 05/05/18 08:27 Dose: 25 mg Senna (Senokot) 2 tab PO HSPRN PRN PRN Reason: Constipation Last Admin: 04/30/18 15:11 Dose: 2 tab Sodium Chloride (Flush - Normal Saline) 10 ml IVF Q12HR [facility] Last Admin: 05/05/18 08:24 Dose: Not Given Sodium Chloride (Flush - Normal Saline) 10 ml IVF PRN PRN PRN Reason: Saline Flush Tramadol HCl (Ultram) 50 mg PO Q4H PRN PRN Reason: Moderate Pain (4-6) Last Admin: 05/05/18 08:27 Dose: 50 mg Trazodone HCl (Desyrel) 50 mg PO HSPRN PRN PRN Reason: Insomnia
[2018-05-05 15:24] LABS: Sodium 131 mmol/L (136-145)
[2018-05-05] MEDS: Cefepime 2 GM in Sodium Chloride 0.9% 100 ML IVPB SCH ×2 (15:41→20:58)
--- NOTE | 2018-05-05 21:04 | PRG ---
DATE OF SERVICE: 05/05/2018 SUBJECTIVE: The patient was seen and examined with no new complaint noted with the following vital s igns. PHYSICAL EXAMINATION: VITAL SIGNS: Afebrile with temperature 99, pulse 82, respiratory rate 16, blood pressure 119/58, O2 saturation 95%. HEENT: Unremarkable with moist oral mucosa. Neck is supple. No conjunctival injection or icterus. CARDIOVASCULAR SYSTEM: First and second heart sounds were heard. RESPIRATORY SYSTEM: Clear to auscultation. DIGESTIVE SYSTEM: Revealed a benign abdomen. EXTREMITIES: No peripheral edema. SKIN: No new gross rash. LYMPHATICS: No peripheral lymphadenopathy. LABORATORY DATA: Sodium of 129. IMPRESSION: Hyponatremia, multifactorial including intravascular depletion and syndrome of inappropr iate antidiuretic hormone secretion. PLAN: 1. My concern is that the patient is now fully rehydrated and now, we were entering the phase of TONA DH. We will begin to dictate the sodium level of this patient. No wonder the sodium that has risen up to 133 is beginning to take downward trend on normal saline. Therefore, we discontinue normal elsa ine for now and continue with improved nutritional intake in the way of animal meat. We will plan on repeating the sodium level later today status post discontinuation of normal saline. 2. Further management to be dependent on the clinical course.
[2018-05-06 04:31] LABS: Hemoglobin 9.4 g/dL (14.0-18.0); Mean Corpuscular HGB CONC 35.4 g/dL (32.0-36.0); Mean Corpuscular Hemoglobin 33.2 pg (27.0-31.0); Mean Corpuscular Volume 93.8 fL (78.0-98.0); Platelet Count 27 thou/uL (130-400); Red Blood Cell (RBC) Count 2.84 mill/uL (4.70-6.10); White Blood Cell (WBC) Count 1.7 thou/uL (4.8-10.8)
[2018-05-06 04:42] LABS: Anion Gap 12 mmol/L (10-20); BUN (Urea Nitrogen) 16 mg/dL (8.4-25.7); Calc. Creatinine Clearance 99 mL/min (70-130); Carbon Dioxide 24 mmol/L (23-31); Chloride 100 mmol/L (98-107); Estimated GFR-MDRD 79; Glucose 99 mg/dL (80-115); Potassium 3.6 mmol/L (3.5-5.1); Sodium 132 mmol/L (136-145)
[2018-05-06 04:49] LABS: Band 24 % (5-11); Eosinophils 1 % (0-10); Lymphocytes 35 % (21-51); MDiff Complete? YES; Metamyelocyte 2 % (0-0); Monocytes 9 % (0-10); Neutrophil 29 % (42-75); PLT Morphology Comment Appears Decreased
[2018-05-06] MEDS: Cefepime 2 GM in Sodium Chloride 0.9% 100 ML IVPB SCH ×3 (06:21→22:39)
[2018-05-06] MEDS: Famotidine 20 MG TAB PO SCH ×2 (08:56→22:39)
[2018-05-06] MEDS: Docusate 100 MG CAP PO SCH ×2 (08:57→19:46)
--- NOTE | 2018-05-06 09:45 | PDOC.PN ---
- Subjective Encounter Start Date: 05/06/18 Encounter Start Time: 09:00 Subjective: feels better, no sob -: is amb in room, eating better -: inguinal area lymph node pain is tolerable now, it still is big - Objective Resuscitation Status: Resuscitation Status FULL:Full Resuscitation MAR Reviewed: Yes Vital Signs & Weight: Vital Signs (12 hours) Temp Pulse Resp BP Pulse Ox 05/06/18 01:20 98.4 F 70 16 124/61 96 05/05/18 23:20 98.3 F 71 18 122/60 96 05/05/18 23:04 98.4 F 72 18 122/58 L 95 Weight Admit Weight 211 lb 3.2 oz Weight 211 lb 3.2 oz I&O: 05/05/18 05/06/18 05/07/18 06:59 06:59 06:59 Intake Total 2300 980 Output Total 750 Balance 1550 980 Result Diagrams: 05/06/18 04:00 05/06/18 04:00 Phys Exam - Physical Examination HEENT: PERRLA, moist MMs Neck: no nodes, no JVD Respiratory: no wheezing, no rales Cardiovascular: RRR, no significant murmur Gastrointestinal: soft, non-tender, positive bowel sounds b/l ing lymphadenopathy+++ Musculoskeletal: no edema, pulses present Neurological: non-focal, moves all 4 limbs Psychiatric: normal affect, A&O x 3 Dx/Plan (1) Pancytopenia due to chemotherapy Code(s): D61.810 - ANTINEOPLASTIC CHEMOTHERAPY INDUCED PANCYTOPENIA Status: Acute Comment: Neutropenic now. started on Neutropenic precautions (2) Penile cancer Status: Chronic (3) Mitral valve prolapse Code(s): I34.1 - NONRHEUMATIC MITRAL (VALVE) PROLAPSE Status: Chronic (4) Hyponatremia Code(s): E87.1 - HYPO-OSMOLALITY AND HYPONATREMIA Status: Acute Comment: Thompson SIADH - Plan tompkins cultures are -ve, on levaquin empirically for neutropenic fever -: recieved 2 u prbc and 3 pack platelets yesterday -: counts are slowly stabilizing -: recieved PIC chemo on admission -: dc plan per onc advice, sod is 132 this am and stable * . Review of Systems - Medications/Allergies Allergies/Adverse Reactions: Allergies Allergy/AdvReac Type Severity Reaction Status Date / Time No Known Allergies Allergy Verified 04/26/18 12:08 Medications: Current Medications Acetaminophen (Tylenol) 650 mg PO Q4H PRN PRN Reason: Headache/Fever or Pain Last Admin: 04/28/18 09:52 Dose: 650 mg Hydrocodone Bitart/Acetaminophen ([place] 10/325) 1 tab PO Q4H PRN PRN Reason: Moderate Pain (4-6) Last Admin: 05/03/18 18:39 Dose: 1 tab Hydrocodone Bitart/Acetaminophen ([place] 10/325) 2 tab PO Q4H PRN PRN Reason: Moderate to Severe Pain (6-10) Last Admin: 05/03/18 01:16 Dose: 2 tab Al Hydroxide/Mg Hydroxide (Maalox) 30 ml PO Q6H PRN PRN Reason: Heartburn or Indigestion Benzonatate (Tessalon) 100 mg PO Q4H PRN PRN Reason: Cough Bisacodyl (Dulcolax) 10 mg PO DAILYPRN PRN PRN Reason: Constipation Last Admin: 04/27/18 14:16 Dose: 10 mg Calcium Carbonate (Tums) 1,000 mg PO Q4H PRN PRN Reason: Heartburn or Indigestion Clonidine (Catapres) 0.1 mg PO Q4H PRN PRN Reason: Systolic BP > 160 Docusate Sodium (Colace) 100 mg PO BID [facility] Last Admin: 05/06/18 08:57 Dose: Not Given Famotidine (Pepcid) 20 mg PO BID [facility] Last Admin: 05/06/18 08:56 Dose: 20 mg Guaifenesin (Robitussin Sf) 200 mg PO Q4H PRN PRN Reason: Cough Hydralazine HCl (Apresoline) 10 mg SLOW IVP Q4H PRN PRN Reason: Systolic BP > 170 Potassium Chloride 10 meq/ (Sodium Chloride) 1,005 mls @ 0 mls/hr IV .Q0M [facility] PRN Reason: As Directed Last Admin: 04/30/18 18:07 Dose: 1,005 mls Levofloxacin 750 mg/ Device 150 mls @ 100 mls/hr IVPB Q24HR [facility] Last Admin: 05/05/18 13:48 Dose: 150 mls Cefepime HCl 2 gm/ Sodium (Chloride) 100 mls @ 200 mls/hr IVPB Q8HR [facility] Last Admin: 05/06/18 06:21 Dose: 100 mls Loratadine (Claritin) 10 mg PO DAILYPRN PRN PRN Reason: Sinus Symptoms Ondansetron HCl (Zofran) 8 mg IVP Q6H PRN PRN Reason: Nausea/Vomiting Last Admin: 05/02/18 17:32 Dose: 8 mg Pegfilgrastim (Neulasta) 6 mg SQ WILLCALL [facility] Last Admin: 04/28/18 19:31 Dose: 6 mg Promethazine HCl (Phenergan) 25 mg PO Q6H PRN PRN Reason: Nausea Last Admin: 05/05/18 21:52 Dose: 25 mg Senna (Senokot) 2 tab PO HSPRN PRN PRN Reason: Constipation Last Admin: 04/30/18 15:11 Dose: 2 tab Sodium Chloride (Flush - Normal Saline) 10 ml IVF Q12HR [facility] Last Admin: 05/06/18 08:57 Dose: 10 ml Sodium Chloride (Flush - Normal Saline) 10 ml IVF PRN PRN PRN Reason: Saline Flush Last Admin: 05/06/18 06:22 Dose: 10 ml Tramadol HCl (Ultram) 50 mg PO Q4H PRN PRN Reason: Moderate Pain (4-6) Last Admin: 05/05/18 21:50 Dose: 50 mg Trazodone HCl (Desyrel) 50 mg PO HSPRN PRN PRN Reason: Insomnia Last Admin: 05/05/18 21:50 Dose: 50 mg
[2018-05-06] MEDS: Promethazine 25 MG TAB PO PRN (18:12)
[2018-05-06] MEDS: traMADol HCl 50 MG TAB PO PRN ×2 (18:13→22:37)
--- NOTE | 2018-05-06 19:21 | PRG ---
DATE OF SERVICE: 05/06/2018 SUBJECTIVE: The patient was seen and examined, seems to be doing much better. PHYSICAL EXAMINATION: VITAL SIGNS: Afebrile, temperature 98.4, pulse 70, respiratory 16, blood pressure 124/61, and O2 sat 96%. HEENT: Unremarkable. Moist oral mucosa. NECK: Supple, no conjunctival injection or icterus. CARDIOVASCULAR: First and second heart sounds were heard. RESPIRATORY: Clear to auscultation. DIGESTIVE SYSTEM: Revealed a benign abdomen with positive bowel sounds. EXTREMITIES: No peripheral edema. SKIN: No new gross rash. LYMPHATICS: No peripheral lymphadenopathy. LABORATORY INVESTIGATION: Showed sodium of 132. IMPRESSION: 1. Hyponatremia, multifactorial etiology. 2. Neutropenic fever on treatment. PLAN: 1. From the renal standpoint, the patient is good for discharge with the plan to follow up with me sidney andrade 2 weeks' time with a repeat serum chemistry. 2. Further management to be dependent on the clinical course.
[2018-05-07 04:13] LABS: Hemoglobin 10.1 g/dL (14.0-18.0); Mean Corpuscular Hemoglobin 33.7 pg (27.0-31.0); Mean Corpuscular Volume 93.6 fL (78.0-98.0); Mean Platelet Volume 11.6 fL (7.4-10.4); Platelet Count 19 thou/uL (130-400); Red Blood Cell (RBC) Count 3.01 mill/uL (4.70-6.10); White Blood Cell (WBC) Count 3.6 thou/uL (4.8-10.8)
[2018-05-07 04:24] LABS: Anion Gap 11 mmol/L (10-20); BUN (Urea Nitrogen) 15 mg/dL (8.4-25.7); Calc. Creatinine Clearance 105 mL/min (70-130); Calcium 9.2 mg/dL (7.8-10.44); Carbon Dioxide 25 mmol/L (23-31); Chloride 100 mmol/L (98-107); Estimated GFR-MDRD 85; Glucose 100 mg/dL (80-115); Potassium 3.4 mmol/L (3.5-5.1); Sodium 133 mmol/L (136-145)
[2018-05-07 04:32] LABS: Band 27 % (5-11); Lymphocytes 29 % (21-51); MDiff Complete? YES; Metamyelocyte 2 % (0-0); Monocytes 4 % (0-10); Neutrophil 38 % (42-75); PLT Morphology Comment Appears Decreased
[2018-05-07] MEDS: Cefepime 2 GM in Sodium Chloride 0.9% 100 ML IVPB SCH (06:21)
[2018-05-07 08:34] VITALS: BP 112/60; TEMP 98.6
[2018-05-07] MEDS: Docusate 100 MG CAP PO SCH (09:06)
[2018-05-07] MEDS: Famotidine 20 MG TAB PO SCH (09:06)
[2018-05-07] MEDS: Promethazine 25 MG TAB PO PRN (09:09)
[2018-05-07] MEDS: traMADol HCl 50 MG TAB PO PRN (09:10)
--- NOTE | 2018-05-07 12:37 | DIS ---
DATE OF ADMISSION: 04/26/2018 DATE OF DISCHARGE: 05/07/2018 DISCHARGE DIAGNOSES: 1. Neutropenic fever secondary to chemotherapy. 2. Penile carcinoma with current chemotherapy. 3. Pancytopenia secondary to chemotherapy. 4. Hyponatremia secondary to syndrome of inappropriate antidiuretic hormone, improved. 5. Acute on chronic macrocytic anemia, status post 2 units of packed red blood cells. CONSULTATIONS: Dr. Fried with Medical Oncology Service. Dr. Guillermina Mukherjee with Nephrology [facility]. PERTINENT LAB AND X-RAY FINDINGS: Sodium ranged between 124-136. Potassium ranged between 3.4-4.5. CBC showed a white blood cell count ranging between 0.6-15.7. Hemoglobin ranged between 7.6-11.6. Platelet count ranged between 14-226. Blood cultures x2 from 04/29/2018, showed no growth at 5 days. Urine culture dated 04/29/2018, showed no growth at 48 hours. Stool culture dated 05/03/2018, show ed no Salmonella, Shigella or E. coli 0157. C. difficile antigen and toxin 05/03/2018, negative. Ur ine culture dated 05/04/2018, showed 10-25,000 colonies of mixed skin camilo. Blood cultures x2 from 05/04/2018, showed 1 out of 2 positive for gram positive kalie. HOSPITAL COURSE: The patient was initially admitted after presenting with recent diagnosis of penile carcinoma, receiving chemotherapy. The patient developed pancytopenia and neutropenic fever, placed on IV cefepime and vancomycin. Initial screening cultures including urine and blood were negative. The patient was serially monitored with decreasing hemoglobin, received 2 units of packed red blood cells as well as 3 packs of platelets due to thrombocytopenia. The patient was placed on Neulasta an d monitored by the medical oncology service. The patient developed hyponatremia and was evaluated by the Nephrology Service, treated with tolvaptan. Serial sodium monitoring showed overall improving s odium to current value of 133. The patient currently tolerating regular oral intake, voiding appropr iately and remaining afebrile. I have examined the patient at the time of discharge and discussed fo llowup instructions; at which patient, the patient verbalized understanding and agreement. The patie nt overall clinically stable and ready for discharge on 05/07/2018. DISCHARGE MEDICATIONS: 1. Levaquin 750 mg 1 tab p.o. daily x7 days. 2. [place] 10/325 mg 1 tab p.o. every 3 hours p.r.n. pain. 3. Docusate sodium 100 mg p.o. b.i.d. 4. Senokot 2 tabs p.o. at bedtime p.r.n. 5. Tolvaptan 15 mg p.o. q.a.m. x3 days. FOLLOWUP: The patient may follow up with his primary care provider, Dr. Bayron Palmer within 7 days o f discharge. The patient will follow up with Dr. Dali Fried, to call her office for appointment ti me and date. The patient will follow up with Dr. Guillermina Mukherjee approximately 2 weeks after dis charge. CONDITION ON DISCHARGE: Stable. ACTIVITY: ad alex. DIET: Regular. CODE STATUS: FULL. DISPOSITION: Home on 05/07/2018. Total time preparing in coordinating discharge is 34 minutes.
== END 2018-05-07 12:45 | disposition home or self-care (01) | DRG 846 ==
LOC: ONC 09:03
PROVIDERS: ADMIT Internal Medicine Hematology & Oncology; ATTEND Internal Medicine Hematology & Oncology
PROC: 3E03305 Introduction of Other Antineoplastic into Peripheral Vein, Percutaneous Approach (ICD-10-PCS; principal; 2018-04-26)
PROC: 30233N1 Transfusion of Nonautologous Red Blood Cells into Peripheral Vein, Percutaneous Approach (ICD-10-PCS; 2018-05-02)
PROC: 30233R1 Transfusion of Nonautologous Platelets into Peripheral Vein, Percutaneous Approach (ICD-10-PCS; 2018-05-05)
DX: Z51.11 Encounter for antineoplastic chemotherapy (principal); D61.810 Antineoplastic chemotherapy induced pancytopenia; C77.4 Secondary and unspecified malignant neoplasm of inguinal and lower limb lymph nodes; R65.10 Systemic inflammatory response syndrome (SIRS) of non-infectious origin without acute organ dysfunction; E22.2 Syndrome of inappropriate secretion of antidiuretic hormone; C60.9 Malignant neoplasm of penis, unspecified; N43.3 Hydrocele, unspecified; I34.1 Nonrheumatic mitral (valve) prolapse; D53.9 Nutritional anemia, unspecified; I95.9 Hypotension, unspecified; D69.59 Other secondary thrombocytopenia; R50.81 Fever presenting with conditions classified elsewhere; D64.81 Anemia due to antineoplastic chemotherapy; D72.828 Other elevated white blood cell count; T38.0X5A Adverse effect of glucocorticoids and synthetic analogues, initial encounter; R32 Unspecified urinary incontinence; T45.1X5A Adverse effect of antineoplastic and immunosuppressive drugs, initial encounter; Y92.239 Unspecified place in hospital as the place of occurrence of the external cause; Z86.13 Personal history of malaria; Z84.1 Family history of disorders of kidney and ureter; Z80.8 Family history of malignant neoplasm of other organs or systems; Z90.79 Acquired absence of other genital organ(s)
CPT/HCPCS: 36415; 36416; 36430; 80048; 81001; 81003; 81015; 83630; 83930; 83935; 84295; 84300; 85025; 85027; 86850; 86900; 86901; 87040; 87045; 87046; 87081; 87086; 87324; 87449; 87899; 96377; A4216; G8978-GP-CH; G8979-GP-CH; G8980-GP-CH; J0692; J1100; J1200; J1650; J1956; J2150; J2405; J2469; J2505; J3480; J7050; J9060; J9208; J9209; J9267; P9016; P9035; S0028

== ENCOUNTER 2018-05-24 08:07 | Inpatient (IN) | payer MEDICARE ==
[2018-05-24 08:37] VITALS: BMI 24.5
[2018-05-24] MEDS ORDERED: Ondansetron HCl/PF 4 MG/2 ML Vial SLOW IVP PRN (09:25)
[2018-05-24] MEDS ORDERED: Famotidine/PF 20 mg/2ml Vial SLOW IVP SCH (09:30)
[2018-05-24] MEDS ORDERED: PALONOSETRON HCL 0.05 MG/ML 5 ML VIAL IVP SCH (09:30)
[2018-05-24] MEDS ORDERED: diphenhydrAMINE 50 MG/ML VIAL IVP SCH (09:30)
[2018-05-24] MEDS ORDERED: Promethazine 25 MG TAB PO PRN (09:31)
[2018-05-24] MEDS ORDERED: PACLITAXEL IVPB SCH (09:45)
[2018-05-24] MEDS ORDERED: SODIUM CHLORIDE 0.9% IVPB SCH (09:45)
[2018-05-24] MEDS ORDERED: CISPLATIN IV SCH (10:00)
[2018-05-24] MEDS ORDERED: SODIUM CHLORIDE 0.9% IV SCH (10:00)
[2018-05-24] MEDS ORDERED: MANNITOL IV SCH (10:00)
[2018-05-24 11:14] LABS: Hemoglobin 10.2 g/dL (14.0-18.0); Mean Corpuscular HGB CONC 33.4 g/dL (32.0-36.0); Mean Corpuscular Hemoglobin 33.2 pg (27.0-31.0); Mean Corpuscular Volume 99.2 fL (78.0-98.0); Mean Platelet Volume 7.2 fL (7.4-10.4); Platelet Count 221 thou/uL (130-400); RBC Distribution Width 19.1 % (11.5-14.5); Red Blood Cell (RBC) Count 3.07 mill/uL (4.70-6.10)
[2018-05-24] MEDS: Dexamethasone 10 MG/ML VIAL SLOW IVP SCH (11:30)
[2018-05-24 11:40] LABS: Anion Gap 13 mmol/L (10-20); BUN (Urea Nitrogen) 11 mg/dL (8.4-25.7); Calc. Creatinine Clearance 104 mL/min (70-130); Calcium 9.2 mg/dL (7.8-10.44); Carbon Dioxide 22 mmol/L (23-31); Chloride 105 mmol/L (98-107); Estimated GFR-MDRD 86; Glucose 101 mg/dL (80-115); Potassium 4.5 mmol/L (3.5-5.1); Sodium 135 mmol/L (136-145)
[2018-05-24 11:59] LABS: Band 28 % (5-11); Differential Comment Blast-Like Cell(s); Lymphocytes 5 % (21-51); MDiff Complete? YES; Metamyelocyte 1 % (0-0); Monocytes 1 % (0-10); Myelocyte 2 % (0-0); Neutrophil 62 % (42-75); PLT Morphology Comment Appears Adequate; Polychromasia SLIGHT = 2-3 cells (100X) (0-2/hpf); Reflex for Review?? NO
[2018-05-24] MEDS: SODIUM CHLORIDE 0.9% IVPB SCH ×3 (15:18→20:30)
[2018-05-24] MEDS: MESNA IVPB SCH ×2 (15:18→20:30)
[2018-05-24] MEDS: IFOSFAMIDE IVPB SCH (15:45)
[2018-05-24] MEDS ORDERED: Polyethylene Glycol 3350 17 GM Packet PO PRN (16:07)
[2018-05-24] MEDS ORDERED: cloNIDine 0.1 MG TAB PO PRN (16:51)
[2018-05-24] MEDS ORDERED: hydrALAZINE 20 MG/ML VIAL SLOW IVP PRN (16:51)
[2018-05-24] MEDS ORDERED: Acetaminophen 500 MG TAB PO PRN (16:51)
[2018-05-24] MEDS ORDERED: Ondansetron HCl/PF 4 MG/2 ML Vial IVP PRN (16:51)
[2018-05-24] MEDS ORDERED: Ondansetron ODT 4 MG TAB PO PRN (16:51)
[2018-05-24] MEDS ORDERED: Non-Formulary Item 1 EACH (Ondansetron Hcl 4 MG) PO PRN (16:52)
[2018-05-24] MEDS ORDERED: Senokot 8.6 MG TAB PO PRN (16:52)
[2018-05-24] MEDS ORDERED: HYDROcodone/Acetaminophen 10/325 mg Tablet PO PRN (16:52)
[2018-05-24] MEDS ORDERED: Docusate 100 MG CAP PO SCH (21:00)
[2018-05-24] MEDS: Docusate 100 MG CAP PO SCH (21:53)
--- NOTE | 2018-05-24 23:21 | CON ---
DATE OF CONSULTATION: 05/24/2018 REASON FOR CONSULTATION: Squamous cell carcinoma of the penis. HISTORY OF PRESENT ILLNESS: Mr. 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 He underwent a partial penectomy and had no concerning lymphadenopathy perioperatively and may began to have enlarging mass in his left inguinal area. He also had palpable lymph nodes in his right groin. Node dissection in April showed a squamous cell carcinoma. He was started on chemotherapy with paclitaxel, ifosfamide, and cisplatin. He did have thrombocytopenia, neutropenia with cycle 1. He required platelet transfusion and after cycle #1, his masses in his groin were much smaller, they are softer. He states there is some itching. He has not been taking any pain medication. He is admitted today for cycle 2. PAST MEDICAL HISTORY: 1. Squamous cell carcinoma of the penis. 2. Mitral valve prolapse. 3. History of malaria. PAST SURGICAL HISTORY: Partial splenectomy in 12/2017 ALLERGIES: No known drug allergies. MEDICATIONS: Hydrocodone 10/325 p.r.n., Zofran 8 mg p.r.n., Compazine 10 mg p.r.n. FAMILY HISTORY: Noncontributory. SOCIAL HISTORY: . Has one child, lives alone. No alcohol, tobacco, or illicit drug use. REVIEW OF SYSTEMS: A 12-point review of systems is negative. PHYSICAL EXAMINATION: VITAL SIGNS: Temperature is 97.8, pulse is 70, respiratory rate 16, BP is 110/ 55, he is 96% on room air. GENERAL: This is a well-developed, well-nourished male in no acute distress. HEENT: Normocephalic, atraumatic. Pupils equal and reactive to light. He has alopecia. NECK: Supple. CARDIOVASCULAR: Regular rate and rhythm. LUNGS: Clear. ABDOMEN: Soft, nontender, bowel sounds are positive. EXTREMITIES: No clubbing, cyanosis, or edema. SKIN: No rash. HEMATOLOGIC: No petechia or purpura. LYMPH: He has a large 9 cm mass in his left groin, which is soft. He has a small 3 cm palpable lymph node in his right groin. NEUROLOGIC: Nonfocal. PSYCHIATRIC: The patient is alert and oriented and appropriate. PERTINENT LABORATORY AND X-RAYS: Current WBCs 11.0, hemoglobin 10.2, hematocrit 30.4, platelet count is 221,000, 62% neutrophils, 28% bands, 5% lymphocytes. Sodium is 135, potassium 4.5, chloride 105, CO2 is 22, BUN is 11, creatinine 0.88, calcium is 9.2. ASSESSMENT AND PLAN: 1. Squamous cell carcinoma of the penis. 2. Admission for 3 day course of chemotherapies, cycle 2. DISCUSSION: Patient will have continuous chemotherapy for 3 days, he will receive Neulasta Onpro after treatment. He will be getting mesna for cardioprotection prior to ifosfamide. We will follow his labs. Continue Colace , stool softener. Other medical related issues will be managed by [facility]. MTDD
--- NOTE | 2018-05-25 00:10 | HP ---
DATE OF ADMISSION: 05/24/2018 PRIMARY CARE PHYSICIAN: Dr. Bayron Palmer. PRIMARY ONCOLOGIST: Dr. Dali Fried. CHIEF COMPLAINT: Squamous cell carcinoma of the penis. HISTORY OF PRESENT ILLNESS: This is a 72-year-old male who is a direct admission for Medic al Oncology Service for continuation of chemotherapy due to squamous cell carcinoma of the penis. Dominic rodrigues receiving cyclical chemotherapy slated for approximately 72 hours during this admission. Patie nt's history is significant for squamous cell carcinoma of the penis as stated previously, status pos t partial penectomy. Patient with metastatic process including large inguinal lymphadenopathy with p lans on cyclical chemotherapy with eventual surgical intervention. Patient states the left inguinal adenopathy and mass is less tender to palpation and denies any drainage. Patient denied any fever, c hills, cough, congestion, or chest pain. Patient states he is following up for his routine chemother apy. PAST MEDICAL HISTORY: 1. Squamous cell carcinoma of the penis. 2. Status post partial penectomy. 3. History of mitral valve prolapse. 4. Remote history of malaria. PAST SURGICAL HISTORY: Status post partial penectomy. CURRENT MEDICATIONS: 1. Docusate sodium 100 mg p.o. b.i.d. 2. [place] 10/325 mg one-tab p.o. q.3 to 6 hours p.r.n. pain. 3. Zofran 4 mg p.o. every 6 hours p.r.n. 4. Senokot 2 tabs p.o. at bedtime p.r.n. ALLERGIES: No known drug allergies. FAMILY HISTORY: Positive for renal failure in his father who in his 90s. Mother at the ag e of 93. SOCIAL HISTORY: Patient is . Resides in [place], [place]. Positive alcohol use. No tobacco o r illicit drug use. Retired. REVIEW OF SYSTEMS: The following complete review of systems was otherwise negative, except as stated per HPI: Constitutional: Weight loss or gain, ability to conduct usual activities. Skin: Rash, i tching. Eyes: Double vision, pain. ENT/Mouth: Nose bleeding, neck stiffness, pain, tenderness. C ardiovascular: Palpitations, dyspnea on exertion, orthopnea. Respiratory: Shortness of breath, whe ezing, cough, hemoptysis, fever, or night sweats. Gastrointestinal: Poor appetite, abdominal pain, heartburn, nausea, vomiting, constipation, or diarrhea. Genitourinary: Urgency, frequency, dysuria, nocturia. Musculoskeletal: Pain, swelling. Neurologic/Psychiatric: Anxiety, depression. Allergy /Immunologic: Skin rash, bleeding tendency. PHYSICAL EXAMINATION: VITAL SIGNS: On admission, blood pressure 110/55, pulse 70, respiratory rate 16, temperature 97.8 de grees Fahrenheit, O2 saturation 96% on room air. GENERAL APPEARANCE: This is a 72-year-old male, alert and oriented x3, pleasant, conversan t, in no acute distress. HEENT: Pupils are equal, round, and reactive to light and accommodation. Extraocular muscles are in tact. No scleral icterus, no conjunctival injection. Nares patent. OP is clear. Teeth in good rep air. NECK: Supple, no cervical adenopathy, no thyromegaly, no carotid bruits, no JVD appreciated. Cervic al spine with full active and passive range of motion. No meningeal signs appreciated. CHEST: Lungs are clear to auscultation bilaterally. CARDIOVASCULAR: S1, S2 without noted murmur, rub, or gallop. ABDOMEN: Rounded, soft, nontender, nondistended. Bowel sounds are positive in all four quadrants. There is no hepatosplenomegaly, no abdominal bruits, no rebound or guarding appreciated. GENITOURINARY: Showed grapefruit-sized left inguinal node with mild tenderness to palpation. No tee thema or discharge appreciated. Right inguinal adenopathy noted, as the size of large marbles. EXTREMITIES: Warm and dry with fair turgor. No clubbing, cyanosis, or asymmetric edema appreciated. The pulses palpable distally at the dorsalis pedis, posterior tibial, and popliteal arteries bilate rally. Capillary refill less than 2 seconds. NEUROLOGIC: Cranial nerves II-XII are grossly intact. No focal or lateralizing signs appreciated. PERTINENT LABORATORY AND X-RAY FINDINGS: Basic metabolic profile within normal limits. CBC showed a white blood cell count of 11.0, hemoglobin 10, hematocrit 30, MCV 99, platelet count 221 with 62% ne utrophils, 28% bands. ASSESSMENT AND PLAN: 1. Metastatic squamous cell carcinoma of the penis. Patient will continue chemotherapy for the next 72 hours. We will continue cisplatin, ifosfamide, mesna, and continue Taxol. Continue general cont act precautions. Medical Oncology will direct the therapy. 2. Chronic macrocytic anemia. Stable currently. We will continue to monitor hemoglobin and blood c ounts after continuation of chemotherapy. 3. Leukocytosis. Mild elevation in white cell line currently. We will continue to monitor closely with initiation of chemotherapy. Neulasta p.r.n. 4. Prophylaxis. Sequential compression devices while in bed. Pepcid 20 mg p.o. b.i.d. 5. Code status is FULL. Surrogate medical decision maker is patient's daughter.
[2018-05-25] MEDS: MESNA IVPB SCH ×4 (03:26→23:30)
[2018-05-25] MEDS: SODIUM CHLORIDE 0.9% IVPB SCH ×5 (03:26→23:30)
[2018-05-25 04:39] LABS: #Monocytes 0.3 thou/uL (0.11-0.59); #Neutrophils 6.5 thou/uL (1.40-6.50); %Basophils 0.5 % (0.0-1.0); %Eosinophils 0.1 % (0.0-10.0); %Lymphocytes 12.2 % (21.0-51.0); %Monocytes 3.8 % (0.0-10.0); %Neutrophils 83.4 % (42.0-75.0); Hemoglobin 9.9 g/dL (14.0-18.0); Mean Corpuscular Hemoglobin 34.3 pg (27.0-31.0); Mean Corpuscular Volume 97.9 fL (78.0-98.0); Mean Platelet Volume 7.4 fL (7.4-10.4); Platelet Count 205 thou/uL (130-400); RBC Distribution Width 18.4 % (11.5-14.5); Red Blood Cell (RBC) Count 2.88 mill/uL (4.70-6.10); White Blood Cell (WBC) Count 7.8 thou/uL (4.8-10.8)
[2018-05-25 04:52] LABS: Anion Gap 10 mmol/L (10-20); BUN (Urea Nitrogen) 12 mg/dL (8.4-25.7); Calc. Creatinine Clearance 113 mL/min (70-130); Calcium 8.6 mg/dL (7.8-10.44); Carbon Dioxide 22 mmol/L (23-31); Chloride 109 mmol/L (98-107); Estimated GFR-MDRD Greater than 90; Glucose 151 mg/dL (80-115); Potassium 4.7 mmol/L (3.5-5.1); Sodium 136 mmol/L (136-145)
[2018-05-25] MEDS: Docusate 100 MG CAP PO SCH ×2 (09:30→20:00)
[2018-05-25] MEDS: Ondansetron 2MG/ML MDV 10 MG in Sodium Chloride 0.9% 50 ML IVPB SCH (11:58)
[2018-05-25] MEDS: Dexamethasone 10 MG/ML VIAL SLOW IVP SCH (12:41)
[2018-05-25] MEDS: IFOSFAMIDE IVPB SCH (13:40)
[2018-05-25] MEDS: MANNITOL IV SCH (15:57)
[2018-05-25] MEDS: SODIUM CHLORIDE 0.9% IV SCH (15:57)
[2018-05-25] MEDS: CISPLATIN IV SCH (15:57)
--- NOTE | 2018-05-25 17:01 | PDOC.PN ---
- Subjective Encounter Start Date: 05/25/18 Encounter Start Time: 16:50 Subjective: f/u for metastatic penile CA receiving chemotx currently including Cisplati -: Ifosfamide, Mesna. Overall no new complaints. - Objective MAR Reviewed: Yes Vital Signs & Weight: Vital Signs (12 hours) Temp Pulse Resp BP BP Pulse Ox 05/25/18 15:45 97.5 F L 70 16 134/63 97 05/25/18 11:15 97.5 F L 65 16 131/65 97 05/25/18 08:11 97.7 F 66 16 126/77 96 05/25/18 08:00 97.7 F 66 16 96 Weight Weight 206 lb 10.934 oz I&O: 05/24/18 05/25/18 05/26/18 06:59 06:59 06:59 Intake Total 3565 Output Total 5725 Balance -2160 Result Diagrams: 05/25/18 04:20 05/25/18 04:20 Phys Exam - Physical Examination Constitutional: NAD smiling, responsive HEENT: PERRLA, sclera anicteric, oral pharynx no lesions Neck: no nodes, no JVD, supple, full ROM Respiratory: no wheezing, no rales, no rhonchi, clear to auscultation bilateral Cardiovascular: RRR, no significant murmur, no rub, gallop Gastrointestinal: soft, non-tender, no distention, positive bowel sounds Large L inguinal mass/adenopathy Musculoskeletal: pulses present, edema present Neurological: non-focal, normal sensation, moves all 4 limbs Psychiatric: normal affect, A&O x 3 Skin: no rash, normal turgor, cap refill <2 seconds Dx/Plan (1) Metastatic squamous cell carcinoma Code(s): C79.9 - SECONDARY MALIGNANT NEOPLASM OF UNSPECIFIED SITE Status: Acute Comment: involving the inguinal lymph node, chemotx cycle for 72h IV, Med oncology following (2) Penile cancer Status: Chronic Comment: s/p partial penectomy, see #1 (3) Macrocytic anemia Code(s): D53.9 - NUTRITIONAL ANEMIA, UNSPECIFIED Status: Chronic Comment: Serial H/H given chemotx, CBC in am (4) Leukocytosis Code(s): D72.829 - ELEVATED WHITE BLOOD CELL COUNT, UNSPECIFIED Status: Acute Comment: Likely will decrease with chemotx, monitor for leukopenia - Plan out of bed/ambulate, DVT proph w/SCDs Stable currently -: Continue IV chemotx -: Neulasta prn for leukopenia -: OOB/ambulate -: AM lab: BMP, CBC * .
[2018-05-26 06:29] LABS: #Eosinphils 0.2 thou/uL (0.0-0.7); #Lymphocytes 0.8 thou/uL (1.20-3.40); #Monocytes 0.2 thou/uL (0.11-0.59); #Neutrophils 7.4 thou/uL (1.40-6.50); %Basophils 0.5 % (0.0-1.0); %Lymphocytes 9.5 % (21.0-51.0); %Monocytes 2.5 % (0.0-10.0); %Neutrophils 85.4 % (42.0-75.0); Hemoglobin 8.9 g/dL (14.0-18.0); Mean Corpuscular HGB CONC 34.1 g/dL (32.0-36.0); Mean Corpuscular Hemoglobin 33.8 pg (27.0-31.0); Mean Platelet Volume 8.1 fL (7.4-10.4); Platelet Count 158 thou/uL (130-400); RBC Distribution Width 18.8 % (11.5-14.5); Red Blood Cell (RBC) Count 2.64 mill/uL (4.70-6.10); White Blood Cell (WBC) Count 8.7 thou/uL (4.8-10.8)
[2018-05-26 06:50] LABS: Anion Gap 7 mmol/L (10-20); BUN (Urea Nitrogen) 12 mg/dL (8.4-25.7); Calc. Creatinine Clearance 122 mL/min (70-130); Calcium 8.2 mg/dL (7.8-10.44); Carbon Dioxide 22 mmol/L (23-31); Chloride 113 mmol/L (98-107); Estimated GFR-MDRD Greater than 90; Glucose 98 mg/dL (80-115); Potassium 4.3 mmol/L (3.5-5.1); Sodium 138 mmol/L (136-145)
[2018-05-26] MEDS: Docusate 100 MG CAP PO SCH ×2 (09:14→20:08)
[2018-05-26] MEDS: Loperamide HCl 2 MG CAP PO PRN ×2 (09:18→19:05)
[2018-05-26] MEDS: Ondansetron 2MG/ML MDV 10 MG in Sodium Chloride 0.9% 50 ML IVPB SCH (11:50)
[2018-05-26] MEDS: Dexamethasone 10 MG/ML VIAL SLOW IVP SCH (11:51)
[2018-05-26] MEDS ORDERED: Pegfilgrastim 6 MG/0.6 ML Delivery Kit SQ SCH (12:00)
[2018-05-26] MEDS: MESNA IVPB SCH ×3 (12:21→22:30)
[2018-05-26] MEDS: SODIUM CHLORIDE 0.9% IVPB SCH ×4 (12:21→22:30)
[2018-05-26] MEDS: IFOSFAMIDE IVPB SCH (14:00)
[2018-05-26] MEDS: SODIUM CHLORIDE 0.9% IV SCH (16:29)
[2018-05-26] MEDS: MANNITOL IV SCH (16:29)
[2018-05-26] MEDS: CISPLATIN IV SCH (16:29)
--- NOTE | 2018-05-26 18:11 | PDOC.PN ---
- Subjective Encounter Start Date: 05/26/18 Encounter Start Time: 18:00 Subjective: f/u for penile cancer on current chemotx. [place] weak, nauseated and -: with diarrhea. some chills but no documented fever. - Objective MAR Reviewed: Yes Vital Signs & Weight: Vital Signs (12 hours) Temp Pulse Resp BP Pulse Ox 05/26/18 16:04 98.2 F 62 18 117/55 L 95 05/26/18 12:05 97.9 F 76 20 135/62 96 05/26/18 09:00 98 F 68 20 119/58 L 98 05/26/18 08:00 97.6 F 52 L 16 Weight Admit Weight 206 lb 10.928 oz Weight 206 lb 10.928 oz I&O: 05/25/18 05/26/18 05/27/18 06:59 06:59 06:59 Intake Total 3565 2415 6488 Output Total 5712 3285 1500 Balance -2160 870 4988 Result Diagrams: 05/26/18 06:17 05/26/18 06:17 Additional Labs: Laboratory Tests 05/24/18 05/25/18 11:01 04:20 WBC 11.0 H 7.8 Hgb 10.2 L 9.9 L Phys Exam - Physical Examination Constitutional: NAD HEENT: PERRLA, sclera anicteric, oral pharynx no lesions Neck: no nodes, no JVD, supple, full ROM Respiratory: no wheezing, no rales, no rhonchi, clear to auscultation bilateral S1, S2 Cardiovascular: RRR, no significant murmur, no rub, gallop Gastrointestinal: soft, non-tender, no distention, positive bowel sounds L inguinal mass/adenopathy Musculoskeletal: no edema, pulses present Neurological: normal sensation, moves all 4 limbs Psychiatric: normal affect, A&O x 3 Skin: no rash, normal turgor, cap refill <2 seconds Dx/Plan (1) Metastatic squamous cell carcinoma Code(s): C79.9 - SECONDARY MALIGNANT NEOPLASM OF UNSPECIFIED SITE Status: Acute Comment: involving the inguinal lymph node, chemotx cycle for 72h IV, Med oncology following, near completion of this cycle in less than 24h (2) Penile cancer Status: Chronic Comment: s/p partial penectomy, see #1 (3) Macrocytic anemia Code(s): D53.9 - NUTRITIONAL ANEMIA, UNSPECIFIED Status: Chronic Comment: Serial H/H given chemotx, CBC in am (4) Leukocytosis Code(s): D72.829 - ELEVATED WHITE BLOOD CELL COUNT, UNSPECIFIED Status: Acute Comment: Likely will decrease with chemotx, monitor for leukopenia (5) Diarrhea due to drug Code(s): K52.1 - TOXIC GASTROENTERITIS AND COLITIS Status: Acute Comment: Loperamide 2mg po q4h prn - 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
[2018-05-27 06:18] LABS: Anion Gap 7 mmol/L (10-20); BUN (Urea Nitrogen) 14 mg/dL (8.4-25.7); Calc. Creatinine Clearance 114 mL/min (70-130); Calcium 8.2 mg/dL (7.8-10.44); Carbon Dioxide 22 mmol/L (23-31); Chloride 110 mmol/L (98-107); Estimated GFR-MDRD Greater than 90; Glucose 90 mg/dL (80-115); Potassium 4.3 mmol/L (3.5-5.1); Sodium 135 mmol/L (136-145)
[2018-05-27 06:52] LABS: #Eosinphils 0.1 thou/uL (0.0-0.7); #Lymphocytes 0.9 thou/uL (1.20-3.40); #Monocytes 0.1 thou/uL (0.11-0.59); #Neutrophils 8.4 thou/uL (1.40-6.50); %Basophils 0.2 % (0.0-1.0); %Eosinophils 0.6 % (0.0-10.0); %Lymphocytes 9.6 % (21.0-51.0); %Monocytes 0.6 % (0.0-10.0); %Neutrophils 89.1 % (42.0-75.0); Hemoglobin 8.6 g/dL (14.0-18.0); Mean Corpuscular HGB CONC 34.2 g/dL (32.0-36.0); Mean Corpuscular Hemoglobin 34.4 pg (27.0-31.0); Mean Platelet Volume 8.1 fL (7.4-10.4); PLT Morphology Comment Appears Decreased; Platelet Count 104 thou/uL (130-400); RBC Distribution Width 18.6 % (11.5-14.5); Red Blood Cell (RBC) Count 2.49 mill/uL (4.70-6.10); White Blood Cell (WBC) Count 9.4 thou/uL (4.8-10.8)
[2018-05-27 08:10] VITALS: BP 119/58; TEMP 98.8
--- NOTE | 2018-05-27 10:52 | DIS ---
DATE OF ADMISSION: 05/24/2018 DATE OF DISCHARGE: 05/27/2018 DISCHARGE DIAGNOSES: 1. Squamous cell carcinoma of the penis. 2. Status post partial penectomy. 3. Chronic macrocytic anemia. 4. Leukocytosis. 5. Nausea and vomiting secondary to chemotherapy, resolving. CONSULTATION: Dr. Fried with Medical Oncology Service. PERTINENT LABORATORY DATA AND IMAGING DATA: CBC showed a white blood cell count ranging between 8.7- 11.0, hemoglobin ranged between 8.6-10.2 and platelet count ranged between 104-221. HOSPITAL COURSE: The patient was admitted for continuation of chemotherapy to include ifosfamide, ci splatin and mesna for approximately 72 hours. The patient underwent general chemotherapy protocol wi th these agents tolerating with nausea and some vomiting. The patient received antiemetics as well a s IV fluids and overall remained clinically stable. The patient was also treated for mild diarrhea w ith loperamide, otherwise remained clinically stable. The patient tolerating regular oral intake, vo iding appropriately with stable vital signs. I have examined the patient at the time of discharge an d discussed followup instructions. The patient verbalizes understanding and agreement ready for disc harge on 05/27/2018. DISCHARGE MEDICATIONS: 1. Tramadol 50 mg 1 tablet p.o. q.6 hours p.r.n. pain. 2. Zofran 4 mg ODT p.o. q.6 hours p.r.n. nausea and vomiting. FOLLOWUP: The patient may follow up with Dr. Dali [facility] and to call her offic e for appointment time and date. CONDITION ON DISCHARGE: Stable. ACTIVITY: Ad alex. DIET: Regular. CODE STATUS: FULL. DISPOSITION: Home 05/27/2018.
== END 2018-05-27 12:20 | disposition home or self-care (01) | DRG 847 ==
LOC: ONC 08:07
PROVIDERS: ADMIT Internal Medicine Hematology & Oncology; ATTEND Internal Medicine Hematology & Oncology
DX: Z51.11 Encounter for antineoplastic chemotherapy (principal); C79.82 Secondary malignant neoplasm of genital organs; K52.1 Toxic gastroenteritis and colitis; C77.4 Secondary and unspecified malignant neoplasm of inguinal and lower limb lymph nodes; Z86.79 Personal history of other diseases of the circulatory system; Z86.13 Personal history of malaria; C80.1 Malignant (primary) neoplasm, unspecified; D53.9 Nutritional anemia, unspecified; D72.829 Elevated white blood cell count, unspecified; Z90.79 Acquired absence of other genital organ(s); T45.1X5A Adverse effect of antineoplastic and immunosuppressive drugs, initial encounter; Y92.230 Patient room in hospital as the place of occurrence of the external cause
CPT/HCPCS: 36415; 80048; 85025; 96377; J1100; J1200; J2150; J2405; J2469; J2505; J3480; J7050; J9060; J9208; J9209; J9267; Q0162; S0028

== ENCOUNTER 2018-06-14 12:41 | Outpatient (CLI) | payer MEDICARE | END 2018-06-14 12:42 | disposition home or self-care (01) | LOC: BICULT 12:41 | PROVIDERS: ATTEND Internal Medicine Hematology & Oncology | DX: R59.0 Localized enlarged lymph nodes (principal); C60.8 Malignant neoplasm of overlapping sites of penis | CPT/HCPCS: 36415; 76999; 80053 ==

== ENCOUNTER 2018-06-16 07:50 | Day surgery (SDC) | payer MEDICARE ==
[2018-06-16] MEDS ORDERED: Sodium Chloride 0.9% 20 ML ONE (08:39)
[2018-06-16] MEDS ORDERED: diphenhydrAMINE 25 MG CAP PO SCH (10:00)
[2018-06-16] MEDS ORDERED: Acetaminophen 500 MG TAB PO SCH (10:00)
[2018-06-16 15:45] VITALS: BP 126/61; TEMP 97.8
== END 2018-06-16 15:45 | disposition home or self-care (01) ==
LOC: ONC/OP 07:50
PROVIDERS: ATTEND Internal Medicine Hematology & Oncology
DX: D64.9 Anemia, unspecified (principal); D69.6 Thrombocytopenia, unspecified
CPT/HCPCS: 36430; 86850; 86900; 86901; P9016

== ENCOUNTER 2018-06-21 08:23 | Inpatient (IN) | payer MEDICARE ==
[2018-06-21 08:58] VITALS: BMI 22.6
[2018-06-21] MEDS ORDERED: Promethazine 25 MG TAB PO PRN (09:06)
[2018-06-21] MEDS ORDERED: Ondansetron HCl/PF 4 MG/2 ML Vial IVP PRN (09:07)
[2018-06-21] MEDS ORDERED: PALONOSETRON HCL 0.05 MG/ML 5 ML VIAL IVP SCH (09:15)
[2018-06-21] MEDS ORDERED: Famotidine/PF 20 mg/2ml Vial SLOW IVP SCH (09:15)
[2018-06-21] MEDS ORDERED: SODIUM CHLORIDE 0.9% IV SCH (09:15)
[2018-06-21] MEDS ORDERED: MANNITOL IV SCH (09:15)
[2018-06-21] MEDS ORDERED: Dexamethasone 10 MG/ML VIAL SLOW IVP SCH (09:15)
[2018-06-21] MEDS ORDERED: MESNA IVPB SCH ×5 (09:15→10:45)
[2018-06-21] MEDS ORDERED: SODIUM CHLORIDE 0.9% IVPB SCH ×9 (09:15→14:00)
[2018-06-21] MEDS ORDERED: diphenhydrAMINE 50 MG/ML VIAL IVP SCH (09:15)
[2018-06-21] MEDS ORDERED: CISPLATIN IV SCH (09:15)
[2018-06-21] MEDS ORDERED: IFOSFAMIDE IVPB SCH ×3 (09:30→14:00)
[2018-06-21] MEDS ORDERED: PACLITAXEL IVPB SCH (09:30)
[2018-06-21] MEDS ORDERED: Acetaminophen 325 MG TAB PO PRN (13:37)
--- NOTE | 2018-06-21 14:02 | HP ---
CHIEF COMPLAINT: Admission for chemotherapy. HISTORY OF PRESENT ILLNESS: This patient is a 72-year-old male who has a history of penile cancer wi th metastases to the local lymph nodes. The patient has undergone 2 courses of prior chemotherapy an d presents for his third. He is receiving a cyclical chemotherapy regimen for squamous cell carcinom a that takes approximately 72 hours. The patient primarily reports that he has had generalized weakn ess and fatigue since initiating chemotherapy following a partial penectomy. The patient also has hobbs d a significant lymphadenopathy secondary to metastases. After the first couple rounds of chemothera py a large lymph node in the left inguinal area basically liquified and subsequently the fluid contin ued to grow in size. On of last week, the patient had a drain placed after ultrasound showe d large fluid collection. This was done in [place]. The patient says that they sent the fluid for manoj dash, but were unsure if he had an infection or not. He was placed on Bactrim b.i.d. while awaitin g cultures. REVIEW OF SYSTEMS: Notable for altered taste sensation and generalized myalgias as well as some neur opathy in the fingertips. Otherwise, a 10-system review was negative except for those things mention ed in the history of present illness. The patient also had 1 episode of vomiting last evening. PAST MEDICAL HISTORY: Notable for with metastatic squamous cell carcinoma of the penis. History of remote mitral valve prolapse and remote history of malaria. PAST SURGICAL HISTORY: Partial penectomy in 12/2017, the above-mentioned drain placed in the left in guinal lymph node area 5 days ago. FAMILY HISTORY: Father of renal failure in his 90s. Mother at 93 of old age. SOCIAL HISTORY: The patient is a nonsmoker, nondrinker, nondrug user. He typically lives alone, but is staying with his son as needed. He is . He is a DNR per his request and his son Hussein Arciniega at [phone] would be his surrogate decision maker should that be necessary. MEDICATIONS: Tramadol p.r.n., docusate p.r.n., Bactrim-DS 1 p.o. b.i.d. He is slated to get mesna, cisplatin, paclitaxel and ifosfamide. PHYSICAL EXAMINATION: VITAL SIGNS: Temperature 97.9, pulse 64, respirations 16, O2 sat 96% on room air, BP 103/57. GENERAL APPEARANCE: Age appropriate male in no distress. He is awake, alert, oriented, pleasant, co operative, in no distress. HEENT: Some alopecia. No OP lesions. NECK: Supple and symmetric. CARDIOVASCULAR: Regular rate and rhythm without murmurs, gallops or rubs. LUNGS: Clear to auscultation bilaterally. ABDOMEN: Soft, nontender, nondistended, positive bowel sounds, no masses, no organomegaly. EXTREMITIES: Warm and dry. There is significant lymphadenopathy in the inguinal areas bilaterally, more proximal on the right and is about 3 x 5 cm on the left. The drain is still in place and there is still some slight induration over what appears to be some persistent lymphadenopathy. These are a ll immobile. ASSESSMENT AND PLAN: 1. Squamous cell carcinoma of the penis metastatic to the inguinal lymph nodes. The patient is admi tted through Dr. Fried under the Hospitalist Service in order to get another round of chemotherapy. As stated, the patient will receive mesna, cisplatin, paclitaxel and ifosfamide. We will monitor d aily labs as well as magnesium, phosphorus, and check baseline amylase and lipase. 2. Left inguinal fluid collection likely secondary to destruction of a tumorous tissue in the lymph nodes. The patient just had this area drained and a drain left in place in [place]. Cultures were o btained. We will continue with the p.o. Bactrim and asked if we cannot get the results of that flui d. 3. Deep venous thrombosis and peptic ulcer disease prophylaxis.
[2018-06-21 14:33] LABS: #Eosinphils 0.1 thou/uL (0.0-0.7); #Lymphocytes 0.9 thou/uL (1.20-3.40); #Monocytes 0.4 thou/uL (0.11-0.59); #Neutrophils 4.3 thou/uL (1.40-6.50); %Basophils 0.3 % (0.0-1.0); %Eosinophils 1.3 % (0.0-10.0); %Lymphocytes 15.8 % (21.0-51.0); %Monocytes 6.5 % (0.0-10.0); %Neutrophils 76.2 % (42.0-75.0); Hemoglobin 10.5 g/dL (14.0-18.0); Mean Corpuscular HGB CONC 35.4 g/dL (32.0-36.0); Mean Corpuscular Hemoglobin 36.1 pg (27.0-31.0); Mean Platelet Volume 7.5 fL (7.4-10.4); Platelet Count 98 thou/uL (130-400); Red Blood Cell (RBC) Count 2.91 mill/uL (4.70-6.10); White Blood Cell (WBC) Count 5.7 thou/uL (4.8-10.8)
[2018-06-21 14:43] LABS: Calcium 10.4 mg/dL (7.8-10.44)
[2018-06-21 14:46] LABS: Anion Gap 9 mmol/L (10-20); BUN (Urea Nitrogen) 10 mg/dL (8.4-25.7); Calc. Creatinine Clearance 80 mL/min (70-130); Carbon Dioxide 24 mmol/L (23-31); Chloride 101 mmol/L (98-107); Estimated GFR-MDRD 72; Glucose 105 mg/dL (80-115); Potassium 4.4 mmol/L (3.5-5.1); Sodium 130 mmol/L (136-145)
[2018-06-21] MEDS: HYDROcodone/Acetaminophen 5/325 mg Tablet PO PRN (16:04)
--- NOTE | 2018-06-21 20:10 | CON ---
DATE OF CONSULTATION: 06/21/2018 REASON FOR CONSULTATION: Squamous cell carcinoma of the penis. HISTORY OF PRESENT ILLNESS: Mr. Arciniega is a very pleasant 72-year-old gentleman who has invasive moderately to poorly differentiated squamous cell carcinoma of the penis. He had a partial penectomy in 12/2017. He is being admitted for cycle 3 of paclitaxel, ifosfamide and cisplatin. He had a very good improvement with the first two cycles. However, last week, the left groin mass became extremely large and tender. He had an ultrasound performed on 06/15/2018 , which large fluid collection with internal debris and a thick wall. He went to [place] to have the area excised. He had a large amount of fluid removed. There is a drain that remains in place. He is on antibiotics. He denies any complaints at this time. PAST MEDICAL HISTORY: 1. Squamous cell carcinoma of the penis. 2. Mitral valve prolapse. 3. History of malaria. PAST SURGICAL HISTORY: Partial penectomy. ALLERGIES: No known drug allergies. HOME MEDICATIONS: Hydrocodone 10/325 p.r.n. FAMILY HISTORY: Noncontributory. SOCIAL HISTORY: . Has one son. He lives alone. No alcohol, tobacco or illicit drug use. REVIEW OF SYSTEMS: Twelve-point review of systems is negative. PHYSICAL EXAMINATION: VITAL SIGNS: Temperature is 97.8, pulse is 64, respiratory rate 16, BP is 103/ 57, he is 96% on room air. GENERAL: Well-developed, well-nourished male in no acute distress. HEENT: Normocephalic, atraumatic. Pupils equal and reactive to light. NECK: Supple. CARDIOVASCULAR: Regular rate and rhythm. LUNGS: Clear. ABDOMEN: Soft, nontender. Bowel sounds are positive. EXTREMITIES: No clubbing, cyanosis or edema. SKIN: No rash. LYMPH: He has a 3 cm palpable right inguinal lymph node. He has a palpable lymph node and drain in place to the left inguinal area with sanguineous drainage. NEUROLOGIC: Nonfocal. PSYCHIATRIC: The patient is alert and oriented and appropriate. PERTINENT LABORATORY AND X-RAYS: Current WBC is 5.7, hemoglobin 10.5, hematocrit 29.7, platelet count is 98,000, 76% neutrophils, 16% lymphocytes. Sodium is 130, potassium 4.4, chloride 101, CO2 is 24, BUN is 10, creatinine 1.02, calcium is 10.4. ASSESSMENT: 1. Squamous cell carcinoma, here for chemotherapy. 2. Left inguinal abscess/fluid collection. DISCUSSION: The patient will begin chemotherapy today, should be completed on Thursday. He will get Neulasta support. He will follow up with the doctor in [place] regarding the fluid collection. We will await cultures done in [place] and we will adjust his antibiotics accordingly. Thank you for the consult. We will follow him closely. MTDD
[2018-06-21] MEDS: Sulfameth/Trimethoprim DS 800-160mg TAB PO SCH (20:20)
[2018-06-21] MEDS: Famotidine 20 MG TAB PO SCH (20:20)
[2018-06-22 05:33] LABS: #Lymphocytes 0.6 thou/uL (1.20-3.40); #Monocytes 0.2 thou/uL (0.11-0.59); #Neutrophils 3.1 thou/uL (1.40-6.50); %Monocytes 3.9 % (0.0-10.0); Hemoglobin 9.9 g/dL (14.0-18.0); Mean Corpuscular Hemoglobin 35.9 pg (27.0-31.0); Mean Platelet Volume 7.9 fL (7.4-10.4); Platelet Count 89 thou/uL (130-400); Red Blood Cell (RBC) Count 2.75 mill/uL (4.70-6.10); White Blood Cell (WBC) Count 3.9 thou/uL (4.8-10.8)
[2018-06-22 05:38] LABS: Anion Gap 8 mmol/L (10-20); BUN (Urea Nitrogen) 11 mg/dL (8.4-25.7); Calc. Creatinine Clearance 97 mL/min (70-130); Calcium 8.6 mg/dL (7.8-10.44); Carbon Dioxide 20 mmol/L (23-31); Chloride 109 mmol/L (98-107); Estimated GFR-MDRD 89; Glucose 120 mg/dL (80-115); Lipase 7 U/L (8-78); Magnesium 1.5 mg/dL (1.6-2.6); Phosphorus 2.5 mg/dL (2.3-4.7); Potassium 4.8 mmol/L (3.5-5.1); Sodium 132 mmol/L (136-145)
[2018-06-22] MEDS ORDERED: Enoxaparin Sodium 40 MG/0.4 ML SYRINGE SC SCH (09:00)
[2018-06-22] MEDS ORDERED: MANNITOL IV SCH ×2 (09:00→09:30)
[2018-06-22] MEDS ORDERED: SODIUM CHLORIDE 0.9% IV SCH ×2 (09:00→09:30)
[2018-06-22] MEDS ORDERED: CISPLATIN IV SCH ×2 (09:00→09:30)
[2018-06-22] MEDS ORDERED: SODIUM CHLORIDE 0.9% IVPB SCH ×3 (09:30→09:45)
[2018-06-22] MEDS ORDERED: Dexamethasone 10 MG, Ondansetron 2MG/ML MDV 10 MG in Sodium Chloride 0.9% 50 ML IVPB SCH (09:30)
[2018-06-22] MEDS ORDERED: IFOSFAMIDE IVPB SCH (09:30)
[2018-06-22] MEDS ORDERED: MESNA IVPB SCH ×2 (09:45)
[2018-06-22] MEDS: Sulfameth/Trimethoprim DS 800-160mg TAB PO SCH ×2 (10:15→21:49)
[2018-06-22] MEDS: Magnesium Oxide 250 MG TAB PO SCH (10:15)
[2018-06-22] MEDS: Famotidine 20 MG TAB PO SCH ×2 (10:15→21:49)
--- NOTE | 2018-06-22 11:42 | CON ---
DATE OF CONSULTATION: 06/22/2018 HISTORY OF PRESENT ILLNESS: The patient is a 72-year-old male who I diagnosed with penile cancer and he underwent a partial penectomy on 12/2017 for a 2.7 cm grade 2-3 squamous cell carcinoma with lymphovascular and perineural involvement present (T2G2-3), but margins negative and initially his inguinal nodes were negative. Unfortunately, over the past several months he had remarkable growth of inguinal nodes and was to be set up for a surgical resection for bilateral inguinal node dissection because the metastatic workup was otherwise negative with Dr. Urbina in [place]; however, there were some delays and ultimately the rapid growth of his node size started a conversation with Oncology and Radiation Oncology and ultimately it was decided he would undergo 3-4 rounds of chemotherapy of neoadjuvant therapy prior to his surgery; however, more recently after he completed 2 rounds, he was noted to have significant improvement of his node size and then massive enlargement on the left which ultimately was proven to be cyst and thought to be lymphatic growth. He saw Dr. Urbina who had Interventional place a drain for more than a liter that initially came out, now approximately 150 a day is coming out. I presume lymphatic drainage. It was agreed that he would come back in for his third round of chemotherapy and anticipate surgery thereafter. He underwent half of the dosing of this yesterday and now there is some concern about his platelets, so the decision was being made to terminate the rest of the third round, and anticipate getting his counts back up and getting him ready for surgery. Overnight, he has done well. He has no complaints. He has minimal to no pain and is voiding without difficulty. PMH: Penile Cancer (T2G2-3), Mitral Valve Prolapse, Malaria PSH: Partial Penectomy (12/29/17) Meds: see chart Allergies: NONE SOCIAL: no tobacco/alcohol/drugs, , 1 son FH: Father at 90 of kidney failure. Mother at 93 of old age. ROS: Bowels, Urinary habits, and appetite WNL. No CP, SOB, cough. Pain in groin controlled. PHYSICAL EXAMINATION: VITAL SIGNS: Vital signs have been stable. T-max 98.1, current 97.4, satting 94% -97% on room air, blood pressure 113/58, heart rate 67. He has had approximately 150 from the drain and it is yellow serous drainage and approximately 1550 from urine which is yellow, clear. GROIN: The groin size is significantly less than when I saw in the office last week as it was approximately 15 cm mass, that now has been decompressed and he just has the palpable nodes with the drain still intact. LABORATORY: Laboratory values reveal an H&H stable at 9.9 and 28.2. Platelets have gone down a little bit from 98 to 89, BUN and creatinine are good at 11 and 0.85. ASSESSMENT AND PLAN: We have a 72-year-old male with squamous cell carcinoma of the penis, bilateral bulky lymphadenopathy status post partial of his third round of chemotherapy with low platelets and a drain for a lymphocele. Oncology will anticipate monitoring his counts another 24 hours and anticipating discharge thereafter. He already set up to see Dr. Urbina in the office next week. He is on prophylaxis antibiotic while the drain is in and I told him he should keep on this until the drain is removed and/or until surgery depending on what Dr. Urbina feels. [facility]
[2018-06-22] MEDS: HYDROcodone/Acetaminophen 5/325 mg Tablet PO PRN (17:50)
--- NOTE | 2018-06-22 18:22 | PRG ---
DATE OF SERVICE: 06/22/2018 SUBJECTIVE: The patient reports that he has had some chills today. He had no specific fever. He wa s unaware of having this with previous episodes. He did have a little bit of nausea yesterday. He b elieves that he is having some sinus drainage that accumulates and then ultimately causes him some na usea, coughing, and then vomiting. He has been using the antiemetics here as needed. OBJECTIVE: VITAL SIGNS: Temperature is 98.4; pulse has been in the 60-70 range, now up to 99; respirations 16-2 4; O2 sat was 93%; blood pressure 137/63. GENERAL APPEARANCE: Age-appropriate male. He was in no distress. HEART: Regular rate and rhythm. LUNGS: Clear bilaterally with no wheezes. ABDOMEN: Soft, nontender. EXTREMITIES: Warm and dry. LABORATORY DATA: White count was 3.9, hemoglobin 9.9, MCV 103, platelets 89. IMPRESSION AND PLAN: 1. Squamous cell carcinoma of the penis, status post partial penectomy with metastases to the inguin al lymph nodes. The patient is in his third cycle of chemotherapy. I discussed with Oncology. Ofelia use the patient's platelet counts are trending down, the chemotherapy will be held at this point. Th e patient has had a history of significant thrombocytopenia with his previous courses. The patient i s scheduled to have surgical resection of the lymph nodes in [place] in the coming days, and therefor e, we will need to have adequate platelet function. They also believe the patient had similar reacti ons to his chemotherapy in the past and recommended Phenergan, which is on his list. 2. Left inguinal fluid collection in the area of the necrosed lymph node. The patient has a persist ent drain in place. He is on p.o. Bactrim. [place] has the cultures on that and attempting to locat e those.
[2018-06-23 06:44] LABS: #Lymphocytes 0.6 thou/uL (1.20-3.40); #Monocytes 0.2 thou/uL (0.11-0.59); %Basophils 0.1 % (0.0-1.0); %Eosinophils 0.1 % (0.0-10.0); %Lymphocytes 5.2 % (21.0-51.0); %Monocytes 1.5 % (0.0-10.0); %Neutrophils 93.1 % (42.0-75.0); Hemoglobin 10.2 g/dL (14.0-18.0); Mean Corpuscular HGB CONC 35.5 g/dL (32.0-36.0); Mean Corpuscular Hemoglobin 36.4 pg (27.0-31.0); Mean Platelet Volume 8.1 fL (7.4-10.4); Platelet Count 85 thou/uL (130-400); RBC Distribution Width 19.9 % (11.5-14.5); Red Blood Cell (RBC) Count 2.81 mill/uL (4.70-6.10); White Blood Cell (WBC) Count 11.8 thou/uL (4.8-10.8)
[2018-06-23 06:53] LABS: Anion Gap 9 mmol/L (10-20); BUN (Urea Nitrogen) 15 mg/dL (8.4-25.7); Calc. Creatinine Clearance 68 mL/min (70-130); Calcium 9.2 mg/dL (7.8-10.44); Carbon Dioxide 20 mmol/L (23-31); Chloride 103 mmol/L (98-107); Estimated GFR-MDRD 60; Glucose 103 mg/dL (80-115); Magnesium 1.4 mg/dL (1.6-2.6); Phosphorus 2.3 mg/dL (2.3-4.7); Sodium 128 mmol/L (136-145)
[2018-06-23] MEDS: Sulfameth/Trimethoprim DS 800-160mg TAB PO SCH (08:41)
[2018-06-23] MEDS: Famotidine 20 MG TAB PO SCH (08:41)
[2018-06-23] MEDS: Magnesium Oxide 250 MG TAB PO SCH (08:41)
[2018-06-23] MEDS ORDERED: IFOSFAMIDE IVPB SCH (09:45)
[2018-06-23] MEDS ORDERED: Dexamethasone 10 MG, Ondansetron 2MG/ML MDV 10 MG in Sodium Chloride 0.9% 50 ML IVPB SCH (09:45)
[2018-06-23] MEDS ORDERED: Ondansetron 2MG/ML MDV 10 MG, Dexamethasone 10 MG in Sodium Chloride 0.9% 50 ML IVP SCH (09:45)
[2018-06-23] MEDS ORDERED: MESNA IVPB SCH (09:45)
[2018-06-23] MEDS ORDERED: SODIUM CHLORIDE 0.9% IVPB SCH ×2 (09:45)
[2018-06-23] MEDS ORDERED: SODIUM CHLORIDE 0.9% IV SCH (09:45)
[2018-06-23] MEDS ORDERED: CISPLATIN IV SCH (09:45)
[2018-06-23] MEDS ORDERED: MANNITOL IV SCH (09:45)
[2018-06-23] MEDS ORDERED: Pegfilgrastim 6 MG/0.6 ML Delivery Kit SQ SCH (12:00)
[2018-06-23 12:41] VITALS: BP 105/57; TEMP 98.5
--- NOTE | 2018-06-23 22:19 | DIS ---
DATE OF ADMISSION: 06/21/2018 DATE OF DISCHARGE: 06/23/2018 DISCHARGE DIAGNOSES: 1. Squamous cell carcinoma of the penis with local inguinal lymph node invasion. 2. Left inguinal seroma. HOSPITAL COURSE: This patient is a 72-year-old male with a history of squamous cell carcinoma of the penis, status post partial penectomy with metastatic lesions in bilateral inguinal lymph nodes. The patient has undergone 2 rounds of chemotherapy. He had a fluid collection developed in the left ing uinal area, which was presumably secondary to necrosis of these metastatic lesions in the groin area. The patient was subsequently seen in [place] where he had a drain placed just prior to his admissio n. Cultures were obtained, no results had been reported as of yet. The patient was on p.o. Bactrim. He presented for his third cycle of chemotherapy. HOSPITAL COURSE: The patient was admitted feeling generally well. He had initiation of the chemothe rapy as prescribed by oncology through Dr. Fried. He had some of his apparent usual side effects i ncluding some chills and some low-grade nausea, but nothing of significant consequence. After second day, the patient's labs indicated a change in his platelets from 98 down to 85. The patient was bear eduled for followup with the surgeon in [place] to excise the inguinal lymph node areas. The decisio n was made to stop his chemotherapy at that point and ordered to preserve his platelet function, so t hat he could undergo that procedure. PHYSICAL EXAMINATION: VITAL SIGNS: On the day of discharge, temperature is 98.5, pulse 88, respirations 18, BP 105/57. GENERAL: He is generally awake, alert, oriented, pleasant, cooperative, feeling significantly better . His heart is regular rate and rhythm without murmurs. LUNGS: Clear bilaterally. ABDOMEN: Soft, nontender, nondistended. Groin area reveals persistent fullness in the left inguinal area with some central fluid collection and general firmness. Drain remains in place. EXTREMITIES: There is some stringy red substance inside the collection bag from the drain where the nurse was able to extract some clot from within the drain itself. The inguinal area looks slightly e rythematous and warm today. DISPOSITION: The patient will be discharged to home. He will have follow up with Dr. Fried on . They will reevaluate his inguinal area at that time. He is to discontinue his Neulasta thi s evening. His activity is as tolerated. He is to have no dietary restrictions. He should return t o the emergency department should he have any problems prior to the time of followup.
== END 2018-06-23 17:30 | disposition home or self-care (01) | DRG 847 ==
LOC: ONC 08:23 → OBSVTOIN 08:23 → INTOOBSV 08:23 → ONC 14:58
PROVIDERS: ADMIT Internal Medicine Hematology & Oncology; ATTEND Internal Medicine Hematology & Oncology
DX: Z51.11 Encounter for antineoplastic chemotherapy (principal); C77.4 Secondary and unspecified malignant neoplasm of inguinal and lower limb lymph nodes; C60.9 Malignant neoplasm of penis, unspecified; D69.59 Other secondary thrombocytopenia; M79.81 Nontraumatic hematoma of soft tissue
CPT/HCPCS: 36415; 80048; 82150; 83690; 83735; 84100; 85025; 96377; A4216; J1100; J1200; J2150; J2405; J2469; J2505; J3480; J7050; J9060; J9208; J9209; J9267; S0028

== ENCOUNTER 2018-07-02 08:53 | Outpatient (CLI) | payer MEDICARE ==
--- NOTE | 2018-07-02 10:34 | RAD ---
PA AND LATERAL VIEWS CHEST: HISTORY: Preoperative evaluation. FINDINGS: Comparison is made with the exam of 12/23/17. The heart size is normal. The lungs are expanded without focal areas of consolidation, pneumothorace s, or pleural effusions. There are degenerative changes in the spine. IMPRESSION: No radiographic evidence of acute cardiopulmonary process. POS: NORM
--- NOTE | 2018-07-02 15:18 | EKG ---
Test Reason : PREOP FOR OUT OF TOWN SURGERY Blood Pressure : / mmHG Vent. Rate : 080 BPM Atrial Rate : 080 BPM P-R Int : 150 ms QRS Dur : 084 ms QT Int : 364 ms P-R-T Axes : 081 074 070 degrees QTc Int : 419 ms Normal sinus rhythm Normal ECG When compared with ECG of 01-APR-2018 12:31, No significant change was found Confirmed by AIXA LOYD, YUE ([id number]) on 07/02/2018 3:17:41 PM Referred By: ITZEL Confirmed By:YUE KRUSE MD
== END 2018-07-02 08:54 | disposition home or self-care (01) ==
LOC: EKG 08:53
PROVIDERS: ATTEND Internal Medicine Hematology & Oncology
DX: Z01.818 Encounter for other preprocedural examination (principal); C60.8 Malignant neoplasm of overlapping sites of penis
CPT/HCPCS: 71046; 93005; 93010

== ENCOUNTER 2018-07-06 12:10 | Outpatient (CLI) | payer MEDICARE ==
--- NOTE | 2018-07-06 15:49 | PET ---
PET WITH CT SKULL TO MID THIGH: CLINICAL HISTORY: Malignant neoplasm overlapping sites of penis, metastatic adenopathy. Reference made to prior PET CT dated 03/28/[address] abdomen/pelvis dated 04/12/18. RADIOPHARMACEUTICAL: 14.7 mCi F18-FDG IV. There is appropriate biodistribution of the radiotracer activity. FINDINGS: Again demonstrated, there is a large, peripherally hypermetabolic hypodense mass of the left inguinal region, grossly stable in volume to the most recent comparison exam of 04/12/18, measuring approxima tely 9.4 cm in diameter. The peripherally located hypermetabolic activity demonstrates SUV of up to 6 .6. The contralateral, right inguinal hypermetabolic adenopathy also persists, with Hounsfield units measuring up to approximately 8.1. Dominant right inguinal lymph node has decreased in size, now marco antonio uring 2.3 cm, compared to 3.3 cm in a similar location on prior exam. Hypermetabolic activity of the right inguinal lymph node is also decreased. No evidence of pulmonary mass or effusion. No hypermetabolic masses of the solid abdominal organs. Sc attered vascular disease is present. IMPRESSION: Persistent hypermetabolic, necrotic adenopathy of the inguinal regions, with dominant necrotic lymph node of the left inguinal region, grossly stable in volume, with persistent peripheral hypermetabolic activity and central necrosis. There has been interval decrease in volume, as well as interval decre ase in SUV of hypermetabolic right inguinal lymph nodes. POS: [facility]
== END 2018-07-06 12:11 | disposition home or self-care (01) ==
LOC: PET 12:10
PROVIDERS: ATTEND Internal Medicine Hematology & Oncology
DX: C60.8 Malignant neoplasm of overlapping sites of penis (principal); I88.9 Nonspecific lymphadenitis, unspecified
CPT/HCPCS: 78815; A9552

== ENCOUNTER 2018-08-23 12:30 | Emergency (ER) | payer MEDICARE ==
[2018-08-23 13:37] LABS: #Basophils 0.1 thou/uL (0.0-0.2); #Lymphocytes 0.9 thou/uL (1.20-3.40); #Monocytes 0.2 thou/uL (0.11-0.59); #Neutrophils 4.2 thou/uL (1.40-6.50); %Basophils 1.1 % (0.0-1.0); %Eosinophils 0.4 % (0.0-10.0); %Lymphocytes 17.2 % (21.0-51.0); %Monocytes 4.2 % (0.0-10.0); %Neutrophils 77.1 % (42.0-75.0); Hemoglobin 9.7 g/dL (14.0-18.0); Large Platelets SLIGHT; MDiff Complete? YES; Mean Corpuscular HGB CONC 32.8 g/dL (32.0-36.0); Mean Corpuscular Hemoglobin 33.7 pg (27.0-31.0); Mean Platelet Volume 10.9 fL (7.4-10.4); PLT Morphology Comment Appears Adequate; Platelet Count 71 thou/uL (130-400); RBC Distribution Width 14.1 % (11.5-14.5); Red Blood Cell (RBC) Count 2.89 mill/uL (4.70-6.10); White Blood Cell (WBC) Count 5.5 thou/uL (4.8-10.8)
[2018-08-23 13:42] LABS: ALT (SGPT) 49 U/L (8-55); AST (SGOT) 51 U/L (5-34); Albumin 2.8 g/dL (3.4-4.8); Alkaline Phosphatase 155 U/L (40-150); Anion Gap 12 mmol/L (10-20); BUN (Urea Nitrogen) 8 mg/dL (8.4-25.7); Bilirubin, Total 0.5 mg/dL (0.2-1.2); Calc. Creatinine Clearance 0 mL/min (70-130); Calcium 8.9 mg/dL (7.8-10.44); Carbon Dioxide 22 mmol/L (23-31); Chloride 103 mmol/L (98-107); Estimated GFR-MDRD 89; Globulin 3.2 g/dL (2.4-3.5); Glucose 116 mg/dL (83-110); Sodium 133 mmol/L (136-145)
[2018-08-23] MEDS ORDERED: Sodium Chloride 0.9% 100 ML ONE (14:40)
[2018-08-23] MEDS ORDERED: Piperacillin/Tazobactam 4.5 GM VIAL ONE (14:40)
--- NOTE | 2018-08-23 15:32 | CT ---
CT PELVIS WITH CONTRAST: Date: 08/23/18 HISTORY: Abscess. Excessive blood in a wound drain with infection to a surgical site. COMPARISON: PET CT dated 07/06/18. FINDINGS: There appears to be a large wound over the left inguinal region from recent lymph node dissection wit h removal of a large necrotic superficial inguinal lymph node. The surgical cavity has peripheral sut ure which contains debris. This also may reflect prominence of packing material. There does appear to be extension of the surgical site to involve the left pectineus muscle. There is very large area of what appears to be infection and hematoma along the right thigh with overlying surgical linda. Ther e is compression of the left common femoral artery. An indwelling catheter is in place. There is narr owing of the left common femoral artery due to the overlying mass effect from the infection/hematoma. The possibility exists that this is a pseudoaneurysm. There is hypoattenuation of the right pectineu s muscle. Overall, this collection on the right measures approximately 15.0 x 5.2 x 20.0 cm. There ar e centrally necrotic left common iliac lymph nodes. There is likely thrombosis of the left external i liac vein due to what appears to be a possible tumor along the superior resection margin on the left, axial image 27. There is also some abnormal right-sided external iliac lymph nodes. Abnormal externa l iliac lymph nodes are also present. Prostate is markedly enlarged. IMPRESSION: 1. Interval resection of large necrotic left inguinal lymph node with very large cavity containing d ebris and possible packing material. The deep craniad margin of the resection cavity has abnormal en hancement concerning for tumor recurrence at the level of the pectineus muscle extending above the pe lvic brim best seen on axial image 27 and extending along the inguinal roro chain and extending into the left external iliac and common femoral vein. 2. Very large, somewhat lobular mass along the right inguinal region abutting and narrowing the righ t common iliac artery and vein concerning for a pseudoaneurysm and hematoma formation. This may be se quelae of tumor invasion into the adjacent vasculature. 3. Right external iliac adenopathy, as well as tumor involvement of the left and right pectineus mus culature. POS: [facility]
[2018-08-23 15:45] LABS: Bilirubin Negative (Negative); Blood, Urine Trace (Negative); Clarity Slightly Cloudy (Clear); Glucose, Urine (Dipstick) Negative (Negative); Leukocyte Negative (Negative); Nitrite Negative (Negative); Protein, Urine (Dipstick) Negative (Neg-Trace); Specific Gravity, Urine 1.015 (1.005-1.030); Urobilinogen 0.2 mg/dL (0.2-1.0)
[2018-08-23 15:46] LABS: Hyaline Casts/LPF 0-3 HYALINE CAST LPF (0-3 Hyaline); RBC/HPF 0-3 HPF (0-3); Squamous Epithelial 0-3 HPF (0-3); WBC/HPF 0-3 HPF (0-3)
[2018-08-23] MEDS ORDERED: Vancomycin HCl 500 MG VIAL ONE (16:03)
[2018-08-23] MEDS ORDERED: Fentanyl 100 MCG/2 ML VIAL ONE ×3 (16:04→17:14)
[2018-08-23] MEDS ORDERED: Norepinephrine 8 MG/0.9% NS 250 ML ONE (16:25)
== END 2018-08-23 17:41 | disposition short-term general hospital (02) ==
LOC: SCSER 12:30
DX: T81.41XA Infection following a procedure, superficial incisional surgical site, initial encounter (principal); I82.402 Acute embolism and thrombosis of unspecified deep veins of left lower extremity; F17.210 Nicotine dependence, cigarettes, uncomplicated
CPT/HCPCS: 36430; 36556; 72193; 80053; 83605; 85025; 86850; 86900; 86901; 86920; 87040; 96361; 96365; 96367; 96368; 96375; 96376; 99291; 99292; P9016; 36415; 81003; 81015; J2543; J3010; J3370; J7050

== ENCOUNTER 2018-10-08 09:23 | Inpatient (IN) | payer MEDICARE ==
[2018-10-08 10:05] LABS: #Basophils 0.1 thou/uL (0.0-0.2); #Monocytes 0.6 thou/uL (0.11-0.59); #Neutrophils 14.5 thou/uL (1.40-6.50); %Basophils 0.3 % (0.0-1.0); %Eosinophils 0.2 % (0.0-10.0); %Lymphocytes 11.5 % (21.0-51.0); %Monocytes 3.4 % (0.0-10.0); %Neutrophils 84.5 % (42.0-75.0); Hemoglobin 12.3 g/dL (14.0-18.0); Mean Corpuscular HGB CONC 34.2 g/dL (32.0-36.0); Mean Corpuscular Hemoglobin 31.8 pg (27.0-31.0); Mean Corpuscular Volume 92.9 fL (78.0-98.0); Mean Platelet Volume 9.3 fL (7.4-10.4); Platelet Count 62 thou/uL (130-400); RBC Distribution Width 14.3 % (11.5-14.5); Red Blood Cell (RBC) Count 3.88 mill/uL (4.70-6.10); White Blood Cell (WBC) Count 17.2 thou/uL (4.8-10.8)
[2018-10-08 10:16] LABS: ALT (SGPT) 30 U/L (8-55); AST (SGOT) 29 U/L (5-34); Albumin 2.9 g/dL (3.4-4.8); Alkaline Phosphatase 126 U/L (40-150); Anion Gap 17 mmol/L (10-20); BUN (Urea Nitrogen) 20 mg/dL (8.4-25.7); Bilirubin, Total 1.3 mg/dL (0.2-1.2); CK (CPK) 15 U/L (30-200); Calc. Creatinine Clearance 0 mL/min (70-130); Carbon Dioxide 26 mmol/L (23-31); Chloride 95 mmol/L (98-107); Estimated GFR-MDRD 50; Globulin 3.6 g/dL (2.4-3.5); Glucose 141 mg/dL (83-110); Protein, Total 6.5 g/dL (5.8-8.1); Sodium 135 mmol/L (136-145)
[2018-10-08 10:17] LABS: CKMB 0.9 ng/mL (0-6.6); Troponin I 0.114 ng/mL (< 0.028)
[2018-10-08] MEDS ORDERED: Piperacillin/Tazobactam 3.375 GM VIAL ONE (10:22)
[2018-10-08] MEDS ORDERED: Sodium Chloride 0.9% 0 ML ONE (10:23)
[2018-10-08 10:40] LABS: Calcium 16.1 mg/dL (7.8-10.44); Potassium 2.5 mmol/L (3.5-5.1)
--- NOTE | 2018-10-08 10:51 | RAD ---
PORTABLE CHEST 1 VIEW: Date: 10/08/18 Time: 1033 hours HISTORY: Weakness. Dizziness. FINDINGS: The heart size is normal. The lungs are expanded without focal areas of consolidation, pneumothorax, or pleural effusions. IMPRESSION: No radiographic evidence of acute cardiopulmonary process. POS: [facility]
[2018-10-08 12:02] LABS: Bilirubin Negative (Negative); Blood, Urine Small (Negative); Clarity Cloudy (Clear); Glucose, Urine (Dipstick) Negative (Negative); Leukocyte Small (Negative); Nitrite Negative (Negative); Protein, Urine (Dipstick) Negative (Neg-Trace); Specific Gravity, Urine 1.015 (1.005-1.030); Urobilinogen 0.2 mg/dL (0.2-1.0)
[2018-10-08 12:13] LABS: Bacteria/HPF None Seen HPF (None Seen); Crystals/HPF 2+ AMORPH PHOS HPF (Negative); Hyaline Casts/LPF NONE SEEN LPF (0-3 Hyaline); Squamous Epithelial 0-3 HPF (0-3)
[2018-10-08 14:07] LABS: Lactic Acid 3.6 mmol/L (0.5-2.2)
[2018-10-08 14:11] LABS: Troponin I 0.106 ng/mL (< 0.028)
[2018-10-08 15:00] VITALS: BMI 18.0
[2018-10-08] MEDS ORDERED: Sodium Chloride 0.9% 1,000 ML IV SCH (15:06)
[2018-10-08] MEDS ORDERED: Acetaminophen 325 MG TAB PO PRN (15:06)
[2018-10-08] MEDS ORDERED: Ondansetron ODT 4 MG TAB SL PRN (15:06)
[2018-10-08] MEDS ORDERED: Ondansetron PF 4 MG/2 ML Vial IVP PRN ×2 (15:06→18:11)
[2018-10-08] MEDS ORDERED: Piperacillin/Tazobactam 3.375 GM in Sodium Chloride 0.9% 100 ML IVPB SCH (17:00)
[2018-10-08] MEDS ORDERED: Ondansetron ODT 4 MG TAB PO PRN (18:11)
[2018-10-08] MEDS ORDERED: Zolpidem Tartrate 5 MG TAB PO PRN (18:11)
[2018-10-08] MEDS ORDERED: Loperamide HCl 2 MG CAP PO PRN (18:11)
[2018-10-08] MEDS ORDERED: Bisacodyl 10 MG SUPP PR PRN (18:11)
[2018-10-08] MEDS ORDERED: Potassium Chloride 10 MEQ in Premix Bag 1 BAG IVPB SCH (20:00)
[2018-10-08] MEDS: Sodium Chloride 0.9% 1,000 ML IV SCH (20:13)
[2018-10-08] MEDS: Potassium Chloride 10 MEQ in Premix Bag 1 BAG IVPB SCH ×2 (20:49→22:39)
[2018-10-08] MEDS: Vancomycin HCl 750 MG in Sodium Chloride 0.9% 250 ML 250 ML IVPB SCH (20:49)
[2018-10-08] MEDS: HYDROcodone/Acetaminophen 5/325 mg Tablet PO PRN (21:30)
[2018-10-08 22:42] LABS: Lactic Acid 1.4 mmol/L (0.5-2.2)
[2018-10-09] MEDS: Potassium Chloride 10 MEQ in Premix Bag 1 BAG IVPB SCH ×2 (00:05→01:12)
[2018-10-09] MEDS: Piperacillin/Tazobactam 4.5 GM in Sodium Chloride 0.9% 100 ML IVPB SCH ×5 (00:06→23:30)
--- NOTE | 2018-10-09 00:34 | CON ---
DATE OF CONSULTATION: REASON FOR CONSULTATION: Squamous cell carcinoma. HISTORY OF PRESENT ILLNESS: Mr. 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 He underwent a partial penectomy in December. He then completed chemotherapy with paclitaxel, ifosfamide, and cisplatin. He completed 3 cycles of chemotherapy, the last being in June of 2018. He had good improvement with the first 2 cycles, but unfortunately, prior to the third cycle, he had a large left groin mass. Ultrasound done in June showed a large fluid collection with internal debris. He saw his doctor at [facility] in [place], Dr. Hernandez, who had placed a drain and removed the fluid. He was on antibiotics. He then completed his third course of chemotherapy. In July of 2018, he underwent a bilateral lymph node dissection at [facility]. He has been living with his son, who states that over the past 2 weeks, the patient has a poor appetite and decline in mobility. He states in the past week, he has been rapid to the point where is now confused. He denies he has had any fever, cough, shortness of breath, or diarrhea. The patient was to have a PET scan today, ordered by Dr. Hernandez; however, given the patient's confusion, son brought him to the emergency room for evaluation. In the emergency room, the patient was noted to have purulent drainage from his left groin. He had a leukocytosis with white count of 17,000 and 85% neutrophils. He had a calcium of 16.1 and lactic acid of 6.4. Potassium at 2.5 and a creatinine of 1.41. He was admitted for possible sepsis, dehydration, started on IV fluids and antibiotics. Surgical consult was placed. We were asked to see the patient. The patient complains of pain in his inguinal area. He admits to extremely poor appetite. Denies chest pain or shortness of breath. PAST MEDICAL HISTORY: 1. Squamous cell carcinoma of the penis status post chemotherapy. 2. Mitral valve prolapse. 3. History of malaria. PAST SURGICAL HISTORY: 1. Bilateral inguinal lymph node dissection in July 2018. 2. Partial penectomy in December 2017. ALLERGIES: NO KNOWN DRUG ALLERGIES. HOME MEDICATIONS: Hydrocodone p.r.n. FAMILY HISTORY: Noncontributory. SOCIAL HISTORY: . He has one son. He lives with the son. No alcohol, tobacco, or illicit drug use. REVIEW OF SYSTEMS: A 12-point review of systems is negative, except for noted in HPI. PHYSICAL EXAMINATION: VITAL SIGNS: Temperature is 96.8, pulse is 73, respiratory rate 16, blood pressure is 82/50, and he is 100% on room air. GENERAL: This is a cachetic male in no acute distress. HEENT: Normocephalic and atraumatic. Pupils equal and reactive to light. Dry mucous membranes. NECK: Supple. CV: Regular rate and rhythm. LUNGS: Clear. ABDOMEN: Soft and nontender. Bowel sounds are positive. EXTREMITIES: No clubbing, cyanosis, or edema. SKIN: He has bilateral inguinal wounds with purulent drainage, particularly on the left. HEMATOLOGIC: No petechiae or purpura. NEUROLOGIC: Nonfocal. PSYCH: The patient is oriented, but unable to provide history. PERTINENT LABS AND X-RAYS: Current WBCs are 17.2, hemoglobin 12.3, hematocrit 36, platelet counts 62,000, he has 85% neutrophils, and 11% lymphocytes. Sodium is 135, potassium 2.5, chloride 95, CO2 of 26, BUN 20, creatinine 1.41, lactic acid is 3.6, calcium is 16.1, total bilirubin is 1.3, AST is 2.9, ALT is 30, and alkaline phosphatase is 126. Creatinine kinase is 15. Troponin is 0.106. BNP is 78. Serum total protein is 6.5, albumin 2.9, and globulin 3.6. Urine was negative for bacteria. Chest x-ray showed no acute process. ASSESSMENT: 1. Squamous cell carcinoma of the penis status post partial penectomy, chemotherapy, and bilateral inguinal lymph node dissection. 2. Bilateral groin wound infection. 3. Dehydration. 4. Hypercalcemia. 5. Hypokalemia. 6. Lactic acidosis, likely from sepsis. 7. Protein deficient malnutrition. DISCUSSION: The patient has been started on IV fluids with improvement in blood pressure. Antibiotics have been initiated in the ER. Dr. Sexton has seen the patient and has cultured the wound, likely plan for surgical debridement. We will continue IV hydration and potassium replacement. Further care will be based on improvement of these conditions. Thank you for the consult. We will follow his hospital course closely. Job ID: [id number]
--- NOTE | 2018-10-09 01:28 | HP ---
CHIEF COMPLAINT: Very weak and dizzy. HISTORY OF PRESENT ILLNESS: This is a 73-year-old male with a history of penile cancer status post penile partial resection in January 2018. Subsequently, the patient had few rounds of chemo and recently in July had bilateral inguinal lymph node resection. The patient was doing pretty well, he was driving etc., but past 3 weeks, there has been sudden decline in the overall health. The patient has lost his appetite, barely eating, just sustaining over small bites and some water with significant weight loss. Today, he was noted to be extremely weak and complaining of dizziness, so the patient was brought to the ER for further evaluation. In the ER, the lymph node biopsy sites were foul smelling with WBC count of 7.2 and potassium of 2.5. Initial lactic acid was 6.4. The patient was resuscitated with almost 3 L of normal saline and repeat lactic acid was 3.6 along with a mild elevation of the troponin. Initial troponin was 0.114, subsequently it was 0.106. The patient's creatinine is 1.41, possibly prerenal. The patient was treated with vancomycin and Zosyn in the ER. The patient's oncologist was consulted, and surgery was consulted to evaluate the inguinal lymph node site. PAST MEDICAL HISTORY: Significant for penile cancer and lymph node cancer. PAST SURGICAL HISTORY: Partial penectomy for cancer removal in January 2018, lymph nodes were removed in [place] in July 2018. PSYCHIATRIC HISTORY: No significant psychiatric history. SOCIAL HISTORY: The patient denies any alcohol, drug, or smoking history. ALLERGIES: NO KNOWN DRUG ALLERGIES. REVIEW OF SYSTEMS: As mentioned above. Rest was unable to obtain as the patient is very sleepy and tired. PHYSICAL EXAMINATION: VITAL SIGNS: The patient's blood pressure has been running on a lower side, BP around 99/78, pulse 102, respiratory rate 18, and O2 sats on room air is 98%. CONSTITUTIONAL: The patient is afebrile, very tired, sleepy, mildly confused, responding to verbal stimuli. HEENT: Normocephalic and atraumatic head. Eyelids and conjunctivae are within normal limits. Pupils are round and reactive to light. External ears and tympanic membrane are within normal limits. Oral mucosa is dry. Trachea is midline and thyroid is normal. RESPIRATORY/CHEST: Shows good air entry to the both lungs. Clear to auscultation. No wheezing. No rales. No rhonchi. CARDIOVASCULAR: The patient is tachycardic. Regular rhythm. No murmurs. No gallops. ABDOMEN: Soft. No distention. No tenderness. GENITOURINARY: Bilateral inguinal lymph node resection/biopsy sites are open and foul smelling. Wound packing has been removed. NEUROLOGIC: The patient is oriented x2, very sleepy, slow to react, but does open his eyes and respond verbally to the verbal stimuli. ASSESSMENT AND PLAN: 1. Sepsis, status post inguinal lymph node resection. Admit the patient to the step-down intensive care, followup on the lactic acids, IV fluid resuscitation, continue with IV antibiotics, vancomycin and Zosyn, follow up with CBC and BMP in the a.m. 2. Followup on the wound cultures and the blood culture. 3. History of penile cancer and inguinal cancer. Follow up with the oncologist. 4. Pain control, revisited the family about resuscitation status. 5. Nutrition consult. 6. We will order Megace to stimulate the appetite. Job ID: [id number]
[2018-10-09] MEDS: Sodium Chloride 0.9% 1,000 ML IV SCH ×2 (02:49→14:58)
[2018-10-09 04:08] LABS: #Eosinphils 0.1 thou/uL (0.0-0.7); #Lymphocytes 1.2 thou/uL (1.20-3.40); #Monocytes 0.3 thou/uL (0.11-0.59); #Neutrophils 9.4 thou/uL (1.40-6.50); %Basophils 0.1 % (0.0-1.0); %Eosinophils 0.6 % (0.0-10.0); %Lymphocytes 10.8 % (21.0-51.0); %Monocytes 3.1 % (0.0-10.0); %Neutrophils 85.5 % (42.0-75.0); Hemoglobin 9.3 g/dL (14.0-18.0); Mean Corpuscular HGB CONC 33.8 g/dL (32.0-36.0); Mean Corpuscular Hemoglobin 33.6 pg (27.0-31.0); Mean Corpuscular Volume 99.2 fL (78.0-98.0); Mean Platelet Volume 8.9 fL (7.4-10.4); Platelet Count 58 thou/uL (130-400); RBC Distribution Width 14.4 % (11.5-14.5); Red Blood Cell (RBC) Count 2.78 mill/uL (4.70-6.10)
[2018-10-09 04:26] LABS: Carbon Dioxide 28 mmol/L (23-31)
[2018-10-09 04:36] LABS: Anion Gap 7 mmol/L (10-20); BUN (Urea Nitrogen) 18 mg/dL (8.4-25.7); Calc. Creatinine Clearance 57 mL/min (70-130); Chloride 103 mmol/L (98-107); Estimated GFR-MDRD 64; Glucose 76 mg/dL (83-110); Potassium 3.3 mmol/L (3.5-5.1); Sodium 135 mmol/L (136-145)
[2018-10-09 04:45] LABS: Calcium 13.1 mg/dL (7.8-10.44)
[2018-10-09] MEDS: Enoxaparin Sodium 30 MG/0.3 ML SYRINGE SC SCH (09:25)
[2018-10-09] MEDS: Vancomycin HCl 750 MG in Sodium Chloride 0.9% 250 ML 250 ML IVPB SCH ×2 (09:26→20:57)
[2018-10-09] MEDS: Calcitonin,Salmon,Synthetic 200 UNITS/ML SC SCH ×2 (12:32→23:31)
--- NOTE | 2018-10-09 13:52 | PDOC.PN ---
- Subjective Encounter Start Date: 10/09/18 Encounter Start Time: 13:50 Subjective: Feeling better and stronger - Objective Resuscitation Status - Order Detail: 10/08/18 18:11 Resuscitation Status Routine Resuscitation Status: FULL: Full Resuscitation Discussed with: son SHAYNE Reviewed: Yes Vital Signs & Weight: Vital Signs (12 hours) Temp Pulse Resp BP Pulse Ox 10/09/18 10:59 96.8 F L 72 18 108/66 100 10/09/18 07:45 100 10/09/18 07:21 97.1 F L 63 16 105/57 L 100 10/09/18 03:29 97.8 F 63 12 94/52 L 100 Weight Weight 148 lb 3.2 oz I&O: 10/08/18 10/09/18 10/10/18 06:59 06:59 06:59 Intake Total 2191 Output Total 650 Balance 1541 Result Diagrams: 10/09/18 03:37 10/09/18 03:37 Phys Exam - Physical Examination cachetic HEENT: PERRLA, moist MMs, sclera anicteric, TM's clear, oral pharynx no lesions , 2+ tonsils Neck: no nodes, no JVD, supple, full ROM Respiratory: no wheezing, no rales, no rhonchi Cardiovascular: RRR, no significant murmur, no rub Gastrointestinal: soft, non-tender, no distention Musculoskeletal: no edema, pulses present Neurological: non-focal, normal sensation, moves all 4 limbs Psychiatric: normal affect, A&O x 3 Deviation from normal: inguinal lymphnode area, looks infected Dx/Plan (1) Sepsis Code(s): A41.9 - SEPSIS, UNSPECIFIED ORGANISM Status: Acute Comment: S/P Inguinal node resection. Site looks infected. Wound cx grwoing gram negative rods. Started treated ment with IV Abx, IV fluids. Trend WBC (2) Leukocytosis Code(s): D72.829 - ELEVATED WHITE BLOOD CELL COUNT, UNSPECIFIED Status: Acute Comment: Wound cx growing gram negative rods (3) Metastatic squamous cell carcinoma Code(s): C79.9 - SECONDARY MALIGNANT NEOPLASM OF UNSPECIFIED SITE Status: Acute Comment: involving the inguinal lymph node, S/P chemotx cycle DURING PREVIOUS ADMISSION. Now S/P lymphnode resection in [facility] [place] (4) Penile cancer Status: Chronic Comment: s/p partial penectomy (5) Hypotension Status: Resolved (6) Hypercalcemia Code(s): E83.52 - HYPERCALCEMIA Status: Acute Comment: treatment with IV fluids and Calcitonin, trend CAlcium (7) Cachexia Code(s): R64 - CACHEXIA Status: Acute Comment: loss of appetite and metatstaic cancer, will start on megace - Plan cont current plan of care, continue antibiotics, DVT proph w/lovenox * .
--- NOTE | 2018-10-09 14:20 | CON ---
DATE OF CONSULTATION: 10/09/2018 CONSULTING PHYSICIAN: Glenda majano. REASON FOR CONSULTATION: IMC placement. HISTORY OF PRESENT ILLNESS: The patient is a 73-year-old male who was admitted to the hospital yesterday with sepsis syndrome secondary to wound infection in his groin. He has a history of penile cancer and underwent a partial penectomy earlier in the year. He has undergone several cycles of chemotherapy, but I do not think he ever completed full treatment. He came in yesterday with decreased appetite, low blood pressure. This quickly improved after hydration and antibiotic therapy. PAST MEDICAL HISTORY: Penile cancer. PAST SURGICAL HISTORY: Partial penectomy and lymph node dissection of the groin. SOCIAL HISTORY: Nonsmoker. Does not consume alcohol. ALLERGIES: NONE. REVIEW OF SYSTEMS: 12-point review of systems otherwise negative. MEDICATIONS: Prior to admission, tramadol and docusate. PHYSICAL EXAMINATION: VITAL SIGNS: Temperature 97.1, pulse 63, respirations 16, O2 saturation 100%, blood pressure 105/57. GENERAL: He is awake and alert, and in no acute distress. HEENT: Unremarkable. NECK: Without adenopathy, JVD, or bruits. LUNGS: Clear without wheezing or rhonchi. CARDIAC: S1, S2 regular. ABDOMEN: Soft, nontender. EXTREMITIES: He has bilateral dressings in his groin area of partial penectomy. IMAGING STUDIES: His chest x-ray shows hyperinflation without evidence of infiltrate. LABORATORY DATA: White blood cell count 11.0, hematocrit 27.6, platelet count 58. Sodium 135, potassium 3.3, chloride 103, CO2 of 28, BUN 18, creatinine 1.1, glucose 76, calcium level was 13.1, after being 16.1 at the time of admission. Cultures show gram-negative rods from the groin aspirate. ASSESSMENT: 1. Sepsis syndrome. 2. Severe hypercalcemia at the time of admission, which probably led to a state of dehydration from the polyuria that would be present with that. 3. Penile cancer. PLAN: 1. He is to be transferred out to the oncology floor once his calcium has improved a little more. 2. Replace electrolytes as needed. 3. He was given Zometa yesterday which I assume was for the hypercalcemia. 4. We will follow. Job ID: [id number]
[2018-10-09 20:17] LABS: Vancomycin, Trough 16.3 ug/mL
[2018-10-09] MEDS: Megestrol Acetate 40 MG TAB PO SCH (20:58)
--- NOTE | 2018-10-10 00:45 | CON ---
DATE OF CONSULTATION: REASON FOR CONSULTATION: Bilateral inguinal wounds. History is obtained almost entirely through chart review and discussion with Sunitha Corona, Oncology Nurse Practitioner. I saw the patient with Ms. Corona yesterday. HISTORY OF PRESENT ILLNESS: The patient is a 73-year-old man who is a remarkably poor historian. He told me that he had a basal cell cancer and had surgery in [place] and that the wounds have been open ever since his surgery. According to his records, however, he has a history of penile cancer and underwent partial penile resection in January of 2018 following which he had development of large bilateral inguinal wounds with a necrotic center on the left. He was sent to a surgeon in [place] and underwent bilateral inguinal lymph node dissection. I do not have any records of his medical or postoperative course since then. However, he states that he has been declining in recent weeks and getting very weak. He has apparently lost a large amount of weight and there was concern that the lymph node biopsy sites might require surgical debridement. He was admitted to the Medical Service with IV antibiotics and surgical consultation for his wounds. PAST MEDICAL HISTORY: Penile cancer, metastatic to the inguinal lymph nodes. PAST SURGICAL HISTORY: Distal penectomy by Dr. Bravo and recent bilateral inguinal lymph node dissection in [place]. ALLERGIES: HE HAS NO KNOWN DRUG ALLERGIES. HOME MEDICATIONS: He cannot tell me any of his home medications. He states that he was on a pain pill, but has not taken any recently. FAMILY HISTORY: Noncontributory. SOCIAL HISTORY: He does not drink, smoke, or use illicit drugs and apparently lives with family. REVIEW OF SYSTEMS: A 10-system review of systems is negative except per HPI. He denies any cough, sore throat, runny nose, fevers, chills, or change in his bowel habits except for anorexia. PHYSICAL EXAMINATION: VITAL SIGNS: He is 6 feet 4 inches and weighs 148 pounds, and is cachetic in appearance. He has been afebrile since his admission. Heart rate and blood pressure have been normal to slightly low. HEENT: Unremarkable without palpable adenopathy. HEART: Regular in its rate and rhythm. I do no appreciate any murmurs, rubs, or gallops. LUNGS: Appear clear. ABDOMEN: Soft, nontender, and nondistended. He has a large right inguinal wound, which has a clean granulating base, but has a large amount of undermining and tunneling, superiorly and laterally. The space is filled with cloudy-appearing clots. Gram stain and culture were sent. The left inguinal lymph node is likewise fairly clean and granulating, but on compression of the pubic area medial to the open wound, there is pus seen to come from a small opening which was also sent for gram staining and culture. No other fluctuance surrounding the chronic wound. EXTREMITIES: Warm and well perfused, although thin and pale. NEUROLOGIC: No focal deficits except for diffuse weakness. PSYCHIATRIC: The patient appears alert and cooperative, but is a very poor historian and seems confused about the course of recent events. LABORATORY DATA: White count was elevated at 17,000. This morning, it has come down to 11. Hematocrit has gone from 36 to 27, consistent with rehydration. Platelets have gone from 62 to 58. Calcium was initially very elevated at 16.1, but has come down slightly to 13.1 after IV fluids and Zometa. Potassium is still low at 3.3. Lactic acid has normalized overnight. Troponin was slightly high at 0.1. Chest x-ray did not show any acute process. Swabs of his groin which were sent yesterday have gram negative rods and Streptococcus, and urine culture is growing Streptococcus as well. On re-examination this morning, the wounds are packed. There is no odor and no expressible drainage. ASSESSMENT: Chronic neglected bilateral inguinal lymph node dissection wounds. Wound Care was not available today, but I have recommended a VAC dressing for these and it will be difficult to get these wounds to heal given his lymph node dissection and cachetic state. Oncology is managing his oncologic issues including his hypercalcemia, which is felt to likely be paraneoplastic. I am unsure whether his confusion is new in onset. He does not have any other focal neurologic findings. I will continue to follow with the Wound Care team, but no surgical debridement is necessary at this time. Job ID: [id number]
[2018-10-10] MEDS: Sodium Chloride 0.9% 1,000 ML IV SCH ×4 (04:42→20:57)
[2018-10-10 04:57] LABS: Anion Gap 9 mmol/L (10-20); BUN (Urea Nitrogen) 15 mg/dL (8.4-25.7); Calc. Creatinine Clearance 66 mL/min (70-130); Calcium 10.8 mg/dL (7.8-10.44); Carbon Dioxide 26 mmol/L (23-31); Chloride 103 mmol/L (98-107); Estimated GFR-MDRD 76; Glucose 88 mg/dL (83-110); Potassium 2.7 mmol/L (3.5-5.1); Sodium 135 mmol/L (136-145)
[2018-10-10] MEDS: Piperacillin/Tazobactam 4.5 GM in Sodium Chloride 0.9% 100 ML IVPB SCH ×2 (05:43→12:38)
[2018-10-10] MEDS ORDERED: Potassium Chloride 40 MEQ in Sodium Chloride 0.9% 250 ML 250 ML IVPB SCH (06:00)
[2018-10-10] MEDS: HYDROcodone/Acetaminophen 5/325 mg Tablet PO PRN ×2 (09:29→18:33)
[2018-10-10] MEDS: Vancomycin HCl 750 MG in Sodium Chloride 0.9% 250 ML 250 ML IVPB SCH (09:30)
[2018-10-10] MEDS: Megestrol Acetate 40 MG TAB PO SCH ×2 (09:30→20:46)
[2018-10-10] MEDS: Enoxaparin Sodium 30 MG/0.3 ML SYRINGE SC SCH (09:48)
[2018-10-10 10:41] LABS: Phosphorus 1.4 mg/dL (2.3-4.7)
[2018-10-10] MEDS ORDERED: CCU Electrolyte Replacement 1 EACH FS ONE (11:54)
[2018-10-10] MEDS ORDERED: Sodium Phosphate 60 MEQ/15 ML VIAL IVPB SCH (12:00)
[2018-10-10] MEDS ORDERED: Potassium Chloride 40 MEQ in Sodium Chloride 0.9% 250 ML 250 ML IVPB PRN (12:04)
[2018-10-10] MEDS ORDERED: Potassium Chloride 20 MEQ TAB PO PRN (12:04)
[2018-10-10] MEDS ORDERED: Magnesium Oxide 400 MG TAB PO PRN ×2 (12:04)
[2018-10-10] MEDS ORDERED: CCU ELECTROLYTE REPLACEMENT PROTOCOL FS PRN (12:04)
[2018-10-10] MEDS ORDERED: Potassium Chloride 40 MEQ in Premix Bag 1 BAG IVPB PRN (12:04)
[2018-10-10] MEDS ORDERED: Magnesium 2 GM/NS 0.9% 100 ML 2 GM in Premix Bag 1 BAG IVPB PRN (12:04)
[2018-10-10] MEDS ORDERED: Potassium Phosphate 15 MMOL in Sodium Chloride 0.9% 250 ML 250 ML IV PRN (12:05)
[2018-10-10] MEDS ORDERED: Potassium Phosphate 9 MMOL in Sodium Chloride 0.9% 100 ML IVPB PRN (12:05)
[2018-10-10] MEDS ORDERED: Potassium Phosphate 12 MMOL in Sodium Chloride 0.9% 250 ML 250 ML IV PRN (12:05)
[2018-10-10] MEDS: Calcitonin,Salmon,Synthetic 200 UNITS/ML SC SCH (12:37)
--- NOTE | 2018-10-10 12:42 | PDOC.PN ---
- Subjective Encounter Start Date: 10/10/18 Encounter Start Time: 12:41 Subjective: feeling better and staronger, eating some. Not much improvement in appetite -: with igor - Objective Resuscitation Status - Order Detail: 10/08/18 18:11 Resuscitation Status Routine Resuscitation Status: FULL: Full Resuscitation Discussed with: sanchez BELLA Reviewed: Yes Vital Signs & Weight: Vital Signs (12 hours) Temp Pulse Resp BP Pulse Ox 10/10/18 11:01 97.4 F L 61 18 92/49 L 100 10/10/18 07:50 98 10/10/18 07:17 96.8 F L 61 15 94/54 L 100 10/10/18 04:30 97.2 F L 67 18 102/56 L 100 Weight Admit Weight 148 lb 3.2 oz Weight 148 lb 3.2 oz I&O: 10/09/18 10/10/18 10/11/18 06:59 06:59 06:59 Intake Total 2191 3380 Output Total 650 1000 Balance 1541 2380 Result Diagrams: 10/09/18 03:37 10/10/18 03:57 Phys Exam - Physical Examination cachexia HEENT: PERRLA, moist MMs, sclera anicteric, TM's clear, oral pharynx no lesions , 2+ tonsils Neck: no nodes, no JVD, supple, full ROM Respiratory: no wheezing, no rales Cardiovascular: RRR, no significant murmur, no rub Gastrointestinal: soft, non-tender, no distention, positive bowel sounds Musculoskeletal: no edema, pulses present Neurological: non-focal, normal sensation, moves all 4 limbs Psychiatric: normal affect, A&O x 3 Deviation from normal: B/L groin area s/p lymphnode dissection. Covered in dressing Dx/Plan (1) Sepsis Code(s): A41.9 - SEPSIS, UNSPECIFIED ORGANISM Status: Acute Qualifiers: Sepsis type: Pseudomonas Qualified Code(s): A41.52 - Sepsis due to Pseudomonas Comment: S/P Inguinal node resection. Site looks infected. Wound cx grwoing Pseudomonas and Strep A Started treated ment with IV Abx, IV fluids. Trend WBC (2) Leukocytosis Code(s): D72.829 - ELEVATED WHITE BLOOD CELL COUNT, UNSPECIFIED Status: Acute Comment: Wound cx growing gram negative rods (3) Metastatic squamous cell carcinoma Code(s): C79.9 - SECONDARY MALIGNANT NEOPLASM OF UNSPECIFIED SITE Status: Acute Comment: involving the inguinal lymph node, S/P chemotx cycle DURING PREVIOUS ADMISSION. Now S/P lymphnode resection in Sep at [place]. Resection site now infected. Continue abx and possible wound vac per surgery (4) Penile cancer Status: Chronic Comment: s/p partial penectomy (5) Hypotension Status: Resolved Qualifiers: Hypotension type: unspecified hypotension type Qualified Code(s): I95.9 - Hypotension, unspecified Comment: resolved with treatment of spesis and IV hydration (6) Hypercalcemia Code(s): E83.52 - HYPERCALCEMIA Status: Acute Comment: treatment with IV fluids and Calcitonin, trend CAlcium (7) Cachexia Code(s): R64 - CACHEXIA Status: Acute Comment: loss of appetite and metatstaic cancer, will start on megace - Plan cont current plan of care, plan discussed w/ family, continue antibiotics, DVT proph w/lovenox, DVT proph w/SCDs * .
[2018-10-10] MEDS ORDERED: Sodium Phosphate 30 MEQ in Sodium Chloride 0.9% 250 ML 250 ML IVPB SCH (13:00)
[2018-10-10] MEDS: Cefepime 2 GM in Sodium Chloride 0.9% 100 ML IVPB SCH (20:46)
[2018-10-11] MEDS: HYDROcodone/Acetaminophen 5/325 mg Tablet PO PRN ×3 (02:44→21:07)
[2018-10-11] MEDS: Calcitonin,Salmon,Synthetic 200 UNITS/ML SC SCH (03:10)
[2018-10-11 06:00] LABS: Magnesium 1.2 mg/dL (1.6-2.6)
[2018-10-11 06:03] LABS: Phosphorus 1.3 mg/dL (2.3-4.7)
[2018-10-11 06:09] LABS: Anion Gap 9 mmol/L (10-20); BUN (Urea Nitrogen) 13 mg/dL (8.4-25.7); Calc. Creatinine Clearance 76 mL/min (70-130); Calcium 9.1 mg/dL (7.8-10.44); Carbon Dioxide 24 mmol/L (23-31); Chloride 105 mmol/L (98-107); Estimated GFR-MDRD 89; Glucose 80 mg/dL (83-110); Potassium 2.7 mmol/L (3.5-5.1); Sodium 135 mmol/L (136-145)
[2018-10-11] MEDS: Sodium Chloride 0.9% 1,000 ML IV SCH ×2 (06:29→15:15)
--- NOTE | 2018-10-11 07:49 | PRG ---
DATE OF SERVICE: 10/10/2018 SUBJECTIVE: He is in good spirits, but remained somewhat hypotensive. OBJECTIVE: VITAL SIGNS: On exam, temperature 97.4, pulse 61, respirations 18, O2 saturation 100%, blood pressure 82/43. HEENT: Bitemporal wasting present. NECK: No JVD. LUNGS: Clear breath sounds. CARDIAC: S1 and S2, regular. ABDOMEN: Soft. He has bandage over both groin areas. LABORATORY DATA: Sodium 135, potassium 3.7, chloride 103, CO2 26, BUN 15, creatinine 0.9, glucose 88, magnesium 1.0, phosphorus 1.4, calcium 10.8. White blood cell count 11, hematocrit 27.6, platelet count 58. ASSESSMENT: 1. Hypercalcemia due to malignancy. 2. Sepsis syndrome. 3. Dehydration. 4. Severe electrolyte abnormalities, which may be a form of refeeding syndrome given his severe debilitation. PLAN: 1. Replace electrolytes. 2. Keep on telemetry monitoring. 3. Keep a close eye on his labs and leave in [facility] for one more day. Job ID: [id number]
[2018-10-11 09:09] LABS: Vancomycin, Trough 12.6 ug/mL
[2018-10-11] MEDS: Cefepime 2 GM in Sodium Chloride 0.9% 100 ML IVPB SCH ×2 (09:26→21:07)
[2018-10-11] MEDS: Megestrol Acetate 40 MG TAB PO SCH ×2 (09:27→21:07)
[2018-10-11] MEDS: Enoxaparin Sodium 30 MG/0.3 ML SYRINGE SC SCH (09:27)
[2018-10-11] MEDS: Tamsulosin HCl 0.4 MG CAP PO SCH (09:29)
--- NOTE | 2018-10-11 09:59 | PRG ---
DATE OF SERVICE: 10/11/2018 SUBJECTIVE: The patient says he is doing okay. He has no complaints. OBJECTIVE: VITAL SIGNS: On exam, temperature 97.8, pulse 68, respirations 16, O2 saturation 100%, and blood pressure 105/56. HEENT: Unremarkable. NECK: No JVD. CHEST: Clear. CARDIAC: S1 and S2, regular. ABDOMEN: Soft. EXTREMITIES: No edema. LABORATORY DATA: Sodium 135, potassium phosphorus 1.3, and magnesium 1.2. ASSESSMENT: 1. Sepsis syndrome. 2. Electrolyte depletion. PLAN: 1. The patient's electrolytes will be supplemented today per the electrolyte protocol. He can likely be moved out to the floor. 2. Continue antibiotics. Job ID: [id number]
[2018-10-11] MEDS ORDERED: Iopamidol 370 76% 50 ML VIAL FS ONE (12:46)
--- NOTE | 2018-10-11 18:07 | PDOC.GSPN ---
Surgery Progress Note: Subj - Subjective Narrative: More drainage from left wound with tunneling into deep tissues. Drainage had slight yellow color. CT cystogram negative for fistula by my read. Will place VAC tomorrow. Surgery Progress Note: Obj - Vital signs Vital signs: Vital Signs - Most Recent Temp Pulse Resp BP Pulse Ox 96.8 F L 81 16 104/39 L 100 10/11/18 15:47 10/11/18 15:47 10/11/18 15:47 10/11/18 15:47 10/11/18 15:47 Surgery Progress Note: Results - Labs Result Diagrams: 10/09/18 03:37 10/11/18 11:31 Lab results: Laboratory Results - last 24 hr 10/11/18 10/11/18 10/11/18 04:39 08:15 11:31 Sodium 135 L Potassium 2.7 L* 3.0 L Chloride 105 Carbon Dioxide 24 Anion Gap 9 L BUN 13 Creatinine 0.85 Estimated GFR (MDRD) 89 Glucose 80 L Calcium 9.1 Vancomycin Trough 12.6
--- NOTE | 2018-10-11 18:34 | PDOC.PN ---
- Subjective Encounter Start Date: 10/11/18 Encounter Start Time: 18:25 Subjective: f/u s/p bilat inguinal lymph node resection in context of prior penile -: cancer with lymphangitis/cellulitis on Cefepime. States feeling weak -: and decreased appetite. Plan for wound vac in am. - Objective Resuscitation Status - Order Detail: 10/08/18 18:11 Resuscitation Status Routine Resuscitation Status: FULL: Full Resuscitation Discussed with: son SHAYNE Reviewed: Yes Vital Signs & Weight: Vital Signs (12 hours) Temp Pulse Resp BP Pulse Ox 10/11/18 15:47 96.8 F L 81 16 104/39 L 100 10/11/18 10:58 97.0 F L 70 16 116/52 L 100 10/11/18 07:25 97.8 F 68 16 105/56 L 100 Weight Admit Weight 148 lb 3.2 oz Weight 148 lb 3.2 oz I&O: 10/10/18 10/11/18 10/12/18 06:59 06:59 06:59 Intake Total 3380 3725 1900 Output Total 1000 1598 1250 Balance 2380 2127 650 Result Diagrams: 10/09/18 03:37 10/11/18 11:31 Additional Labs: Microbiology 10/08/18 17:04 Groin - Left Bacterial Culture - Final Pseudomonas aeruginosa Beta-hemolytic strep group A 10/08/18 11:49 Urine voided Urine Culture - Final 10/08/18 17:01 Groin - Right Bacterial Culture - Preliminary Pseudomonas aeruginosa Gram Negative Marko Gram Positive Cocci 10/08/18 09:57 Venous blood - Right Arm Blood Culture - Preliminary NO GROWTH AT 48 HOURS 10/08/18 09:49 Venous blood - Left Arm Blood Culture - Preliminary NO GROWTH AT 48 HOURS Laboratory Tests 05/24/18 05/25/18 10/08/18 11:01 04:20 09:49 WBC 11.0 H 7.8 17.2 H Hgb 10.2 L 9.9 L 12.3 L Plt Count 62 L Neutrophils % 84.5 H Potassium Phosphorus Magnesium 10/09/18 10/10/18 10/10/18 03:37 03:57 03:57 WBC Hgb Plt Count Neutrophils % 85.5 H Potassium 2.7 L* Phosphorus Magnesium 1.0 L 10/10/18 10/11/18 10/11/18 03:57 04:39 04:39 WBC Hgb Plt Count Neutrophils % Potassium 2.7 L* Phosphorus 1.4 L 1.3 L Magnesium 1.2 L EKG Reviewed by me: Yes (Tele - SR in 's) Phys Exam - Physical Examination cachetic, frail, pale HEENT: PERRLA, sclera anicteric, oral pharynx no lesions Neck: no nodes, no JVD, supple, full ROM Respiratory: no wheezing, no rales, no rhonchi, clear to auscultation bilateral S1, S2 Cardiovascular: RRR, no significant murmur, no rub, gallop Gastrointestinal: soft, non-tender, no distention, positive bowel sounds generalized, severe atrophy bilat inguinal region with edema, post-surgical changes with dressings Musculoskeletal: no edema, pulses present Neurological: normal sensation, moves all 4 limbs Skin: normal turgor, cap refill <2 seconds Dx/Plan (1) Sepsis Code(s): A41.9 - SEPSIS, UNSPECIFIED ORGANISM Status: Acute Qualifiers: Sepsis type: Pseudomonas Qualified Code(s): A41.52 - Sepsis due to Pseudomonas Comment: S/P Inguinal node resection. Isolated Pseudomonas and Strep A, continue Cefepime, Trend WBC, plan for wound vac (2) Cellulitis Code(s): L03.90 - CELLULITIS, UNSPECIFIED Status: Acute Qualifiers: Site of cellulitis of trunk: groin Comment: Continue local WCT, Cefepime IV, plan for wound vac (3) Cachexia Code(s): R64 - CACHEXIA Status: Acute Comment: loss of appetite and metatstaic cancer, continue Megace 40mg BID (4) Leukocytosis Code(s): D72.829 - ELEVATED WHITE BLOOD CELL COUNT, UNSPECIFIED Status: Acute Comment: Secondary to sepsis/cellulitis, improved with abx therapy, serial monitoring (5) Metastatic squamous cell carcinoma Code(s): C79.9 - SECONDARY MALIGNANT NEOPLASM OF UNSPECIFIED SITE Status: Acute Comment: involving the inguinal lymph node, S/P chemotx cycle DURING PREVIOUS ADMISSION. Now S/P lymphnode resection in Jul at [place]. Resection site now infected. Continue abx and possible wound vac per surgery, see above for details, consult Palliative care service given poor prognosis and clinical decline - Plan continue antibiotics, PT/OT, social media analyst, DVT proph w/SCDs Continue Cefepime -: Plan for wound vac -: WCT for local care -: Megace for anorexia -: Palliative care consult * Continue nutritional support with Ensure/Donnie
--- NOTE | 2018-10-11 20:06 | CT ---
CT CYSTOGRAM OF PELVIS PERFORMED WITHOUT INTRAVENOUS CONTRAST ENHANCEMENT: HISTORY: Concern was that the patient is postop and that there is a possible leak related to the bladder. COMPARISON: 08/23/2018 TECHNIQUE: CT cystogram was performed and, subsequently, a post-void sequence, was also performed for this study . FINDINGS: The prostate is enlarged. The bladder shows a trabeculated appearance. I do not see any leakage of contrast from the bladder. There is some pericolonic inflammatory change with some presacral edema i ncidentally noted. The left inguinal region shows postoperative change. There are what appear to be some enlarged, necr otic appearing inguinal nodes, which are medial to the surgical defect. These have developed since t he prior examination. In addition, there is now some erosive bony change involving the superior acet abulum, specifically the area just along the superior margin of the obturator internis, where there i s some soft tissue extension of the mass adjacent to the external iliac vessels. There is a fat plan e between the bladder and this lesion. On the right side, there are what appear to be some necrotic appearing inguinal nodes, which are new as compared to the prior examination. There have been interval postop changes of the right inguinal mass, with interval reduction in the size of the mass. There is air and what appears to be contrast, but this may be some type of packing material within a portion of the mass, extending to the skin nunn rface. It has the appearance almost of oral contrast, but I see no evidence of any connection to the bladder and, in fact, there appears to be a fat plane the mass from the bladder. There i s soft tissue mass extension into the right external iliac chain, and there is development of some [place] erosive change along the superior acetabulum, at the junction with the acetabulum. IMPRESSION: 1. No evidence of bladder leak. 2. Postoperative changes in both inguinal regions. The soft tissue mass associated with the left in guinal region has increased in size, and there is what appears to be necrotic inguinal adenopathy dea ng the medial margin of the surgical site and development of some bony erosive change along the anter ior-most aspect of the superior acetabulum, related to some soft tissue extension of the mass into th e region of the external iliac chain. 3. On the right side, there is what appears to be interval postoperative change, with an overall red uction in the size of the mass. There is high density material extending into the mass, which has th e appearance almost of contrast. This does not appear to be connected to the bladder, as I see a fat plane between the bladder and this lesion, and no signs of any leakage or fistulous tract from the b ladder. I am not certain of what the high density material represents. It may be something that is injected or some type of packing material. POS: MARTI
[2018-10-12] MEDS: HYDROcodone/Acetaminophen 5/325 mg Tablet PO PRN ×3 (02:19→23:01)
[2018-10-12] MEDS: Sodium Chloride 0.9% 1,000 ML IV SCH ×2 (02:22→12:43)
[2018-10-12 05:28] LABS: #Monocytes 0.3 thou/uL (0.11-0.59); #Neutrophils 9.4 thou/uL (1.40-6.50); %Basophils 0.2 % (0.0-1.0); %Eosinophils 0.4 % (0.0-10.0); %Lymphocytes 9.7 % (21.0-51.0); %Monocytes 2.7 % (0.0-10.0); %Neutrophils 87.1 % (42.0-75.0); Hemoglobin 8.9 g/dL (14.0-18.0); Mean Corpuscular HGB CONC 33.9 g/dL (32.0-36.0); Mean Corpuscular Hemoglobin 33.6 pg (27.0-31.0); Mean Platelet Volume 8.5 fL (7.4-10.4); Platelet Count 54 thou/uL (130-400); RBC Distribution Width 14.7 % (11.5-14.5); Red Blood Cell (RBC) Count 2.66 mill/uL (4.70-6.10); White Blood Cell (WBC) Count 10.8 thou/uL (4.8-10.8)
[2018-10-12 05:36] LABS: Anion Gap 6 mmol/L (10-20); BUN (Urea Nitrogen) 10 mg/dL (8.4-25.7); Calc. Creatinine Clearance 91 mL/min (70-130); Calcium 7.9 mg/dL (7.8-10.44); Carbon Dioxide 24 mmol/L (23-31); Chloride 108 mmol/L (98-107); Estimated GFR-MDRD Greater than 90; Glucose 106 mg/dL (83-110); Sodium 135 mmol/L (136-145)
[2018-10-12 05:42] LABS: Phosphorus 1.2 mg/dL (2.3-4.7); Potassium 2.8 mmol/L (3.5-5.1)
[2018-10-12] MEDS ORDERED: Potassium Chloride 10 MEQ in Premix Bag 1 BAG IVPB SCH (06:30)
[2018-10-12] MEDS ORDERED: Sodium Phosphate 15 MMOL in Sodium Chloride 0.9% 250 ML 250 ML IVPB SCH (06:45)
--- NOTE | 2018-10-12 06:49 | CON ---
DATE OF CONSULTATION: 10/11/2018 HISTORY OF PRESENT ILLNESS: The patient is a 73-year-old male, who has followed in the office for his penile cancer, having undergone a partial penectomy in December 2017 and then had remarkable growth of inguinal lymph nodes in the 3 to 4 months following, which were clearly consistent and concerning for metastatic disease without any obvious signs of disease other than in the inguinal nodes; so at that point, he underwent neoadjuvant chemotherapy, had problems with lymphocele and needed drainage of that and then ultimately underwent bilateral inguinal lymph node dissection in July 2018 and had significant trouble with wound healing thereafter. I saw him in my office on August 09 of this year after he was not able to be seen in [place] and there was significant drainage coming from both right and left wounds despite the drain still being in place on the left at that time. Ultimately, that drain came out and he has persisted with nonhealing wounds since then and is now admitted with sepsis secondary to concern for wound infection. PAST MEDICAL HISTORY: Significant for mitral valve prolapse and malaria. PAST SURGICAL HISTORY: Includes the partial penectomy and the inguinal node dissection. ALLERGIES: NONE. MEDICATIONS: Include none documented in this admission and it does not appear that he was on antibiotics prior to coming in. FAMILY HISTORY: Dad lived till 90 and of kidney failure. Mom lived till 93 and of old age. There is only skin cancer in the family, otherwise no other cancers. SOCIAL HISTORY: He smoked cigars occasionally. He is retired and . REVIEW OF SYSTEMS: He never had a colonoscopy. He has had microhematuria, but no gross hematuria. He denies any urinary complaints other than some hesitancy but no straining,and he feels he is emptying okay. He does feel that he may be constipated. Currently, he has no pain. PHYSICAL EXAMINATION: VITAL SIGNS: He has been afebrile with a T-max of 98.2. His blood pressure has been low, currently as low as 77/50, but no tachycardia, his heart rate was also in the 70s, saturating 100% on room air with urine output only being recorded as about 1500 in the past 24 hours. GENERAL: On exam, he is cachectic, but feels comfortable in the bed. He just finished eating his breakfast, which was not very much he ate until he was full and certain things making him feel like he might vomit. ABDOMEN: His abdomen is soft, nondistended, and nontender. : His groin incisions were covered in ABD pads and not removed. His penis appears uncircumcised consistent with his partial penectomy with the skin generally retracted and the meatus appears pink with normal mucosa and the testes are descended bilaterally without masses or edema. EXTREMITIES: He had no significant lower extremity edema. LABORATORY DATA: Laboratory values reveal labs from the , which show a white count of 11.0 coming down from 17.2, had anemia of 9.3 and 27.6, and a platelet count of 58. Chemistries from 10/11 showed low potassium and elevated calcium that has now come down to 9.1, with both phos and mag with a creatinine of 0.85. Urinalysis from admission showed 4 to 6 wbc's, 4 to 6 rbc's, no bacteria, and 0 to 3 squamous cells. Groin cultures from the right and left are growing pseudomonas and other things. 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 Dr. Sexton has ordered wound VACs; however, I am concerned that these will never stop draining as there will be lymphocele fluid that will persistently drain; however, this may aid in getting the wound smaller and manageable. As long as he is voiding adequately , I would not place the [place], but I would start tamsulosin to see if this helps with his voiding and ensure that he is not constipated. If there is of further assistance, please let me know, otherwise I will follow along. Job ID: [id number] [facility]
[2018-10-12] MEDS ORDERED: Potassium Chloride 40 MEQ in Sodium Chloride 0.9% 250 ML 250 ML IVPB SCH (07:15)
[2018-10-12] MEDS ORDERED: Magnesium 2 GM/NS 0.9% 100 ML 4 GM in Premix Bag 1 BAG IVPB SCH (08:15)
[2018-10-12] MEDS: Enoxaparin Sodium 30 MG/0.3 ML SYRINGE SC SCH (08:44)
[2018-10-12] MEDS: Tamsulosin HCl 0.4 MG CAP PO SCH ×2 (08:44→20:20)
[2018-10-12] MEDS: Cefepime 2 GM in Sodium Chloride 0.9% 100 ML IVPB SCH ×2 (08:50→21:59)
[2018-10-12] MEDS ORDERED: Magnesium Sulfate 4 GM in Sodium Chloride 0.9% 250 ML 250 ML IVPB SCH (09:00)
[2018-10-12] MEDS ORDERED: Magnesium Sulfate 4 GM in Sodium Chloride 0.9% 250 ML 250 ML IVPB ONE (09:00)
--- NOTE | 2018-10-12 10:16 | PRG ---
DATE OF SERVICE: 10/12/2018 SUBJECTIVE: The patient is about the same. He had no acute complaints. OBJECTIVE: VITAL SIGNS: On exam, his temperature is 97.8, pulse 74, respirations 12, O2 sat 99%, and blood pressure 102/53. HEENT: Unremarkable. NECK: No JVD. CHEST: Clear. CARDIAC: S1 and S2, regular. ABDOMEN: Soft. EXTREMITIES: He has bandage over both groin areas. LABORATORY DATA: White blood cell count 10.8, hematocrit 26.3, and platelet count is 54. Sodium 135, potassium 2.8, chloride 108, CO2 of 24, BUN 10, creatinine 0.7, glucose 106, phosphorus 1.2, and magnesium 1.0. ASSESSMENT: 1. Electrolyte depletion. 2. Sepsis syndrome. PLAN: 1. Replace magnesium, phosphate, and potassium. 2. He is likely okay to go to the floor. Job ID: [id number]
[2018-10-12] MEDS ORDERED: Morphine 4 MG/ML VIAL ONE (12:02)
--- NOTE | 2018-10-12 12:23 | PRG ---
DATE OF SERVICE: 10/12/2018 SUBJECTIVE: The patient did well overnight. He did have a CT scan, there is no concern for any fistulas from the bladder. There were some cellules and trabeculations noted on the cystogram. There were also significant postoperative changes with persistent lymphadenopathy, consistent with his current nonhealing wound and known penile cancer. The patient reports that he slept very well because the catheter helped, and he' d like it one more night and hopefully a tamsulosin will be continued to help, so once it comes out , he will still be able to sleep better will. We can increase tamsulosin to to b.i.d. as well. OBJECTIVE: He has been afebrile. His vital signs stable, comfortably sitting up and eating breakfast in his bed. LABORATORY DATA: White count down to 10.8, hemoglobin and hematocrit of 8.9 and 26.3, which is stable with platelets still low at 54. Potassium down at 2.8 with a creatinine of 0.71. 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 Continue antibiotics for his pseudomonas cultures and one with Enterococcus. Wound VAC maybe of benefit; I will leave the catheter for another night and then remove it and continue tamsulosin-- increase this to b.i.d. Job ID: [id number] MTDD
[2018-10-12] MEDS ORDERED: Morphine 2 MG/ML SYRINGE SLOW IVP SCH ×2 (12:30→14:30)
[2018-10-12] MEDS: Megestrol Acetate 40 MG TAB PO SCH (12:42)
--- NOTE | 2018-10-12 16:36 | PDOC.PN ---
- Subjective Encounter Start Date: 10/12/18 Encounter Start Time: 16:15 Subjective: f/u for inguinal lymphangitis/cellulitis and necrosis in context -: metastatic squamous cell ca of penis. s/p resection on Cefepime -: and wound vac - Objective Resuscitation Status - Order Detail: 10/12/18 16:21 Resuscitation Status Routine Resuscitation Status: DNAR: NO Resuscitation Discussed with: Patient MAR Reviewed: Yes Vital Signs & Weight: Vital Signs (12 hours) Temp Pulse Resp BP Pulse Ox 10/12/18 15:33 98.0 F 79 14 98/47 L 100 10/12/18 11:38 98.0 F 93 18 105/56 L 100 10/12/18 07:33 97.8 F 74 12 102/53 L 99 Weight Admit Weight 148 lb 3.2 oz Weight 148 lb 3.2 oz I&O: 10/11/18 10/12/18 10/13/18 06:59 06:59 06:59 Intake Total 3725 3778 Output Total 1598 2700 Balance 2127 1078 Result Diagrams: 10/12/18 04:50 10/12/18 04:50 Additional Labs: Microbiology 10/08/18 17:04 Groin - Left Bacterial Culture - Final Pseudomonas aeruginosa Beta-hemolytic strep group A 10/08/18 11:49 Urine voided Urine Culture - Final 10/08/18 17:01 Groin - Right Bacterial Culture - Preliminary Pseudomonas aeruginosa Gram Negative Marko Gram Positive Cocci 10/08/18 09:57 Venous blood - Right Arm Blood Culture - Preliminary NO GROWTH AT 48 HOURS 10/08/18 09:49 Venous blood - Left Arm Blood Culture - Preliminary NO GROWTH AT 48 HOURS Laboratory Tests 05/24/18 05/25/18 10/08/18 11:01 04:20 09:49 WBC 11.0 H 7.8 17.2 H Hgb 10.2 L 9.9 L 12.3 L Plt Count 62 L Neutrophils % 84.5 H Potassium Phosphorus Magnesium 10/09/18 10/10/18 10/10/18 03:37 03:57 03:57 WBC Hgb Plt Count Neutrophils % 85.5 H Potassium 2.7 L* Phosphorus Magnesium 1.0 L 10/10/18 10/11/18 10/11/18 03:57 04:39 04:39 WBC Hgb Plt Count Neutrophils % Potassium 2.7 L* Phosphorus 1.4 L 1.3 L Magnesium 1.2 L EKG Reviewed by me: Yes (Tele - SR) Phys Exam - Physical Examination Constitutional: NAD alert, responsive HEENT: PERRLA, sclera anicteric, oral pharynx no lesions Neck: no nodes, no JVD, supple, full ROM Respiratory: no wheezing, no rales, no rhonchi, clear to auscultation bilateral S1, S2 Cardiovascular: RRR, no significant murmur, no rub, gallop Gastrointestinal: soft, non-tender, no distention, positive bowel sounds inguinal edema and wound vac in place generalized atrophy Musculoskeletal: pulses present Neurological: normal sensation, moves all 4 limbs Psychiatric: A&O x 3 Skin: normal turgor, cap refill <2 seconds Dx/Plan (1) Sepsis Code(s): A41.9 - SEPSIS, UNSPECIFIED ORGANISM Status: Acute Qualifiers: Sepsis type: Pseudomonas Qualified Code(s): A41.52 - Sepsis due to Pseudomonas Comment: S/P Inguinal node resection. Isolated Pseudomonas and Strep A, continue Cefepime, Trend WBC, wound vac application (2) Cellulitis Code(s): L03.90 - CELLULITIS, UNSPECIFIED Status: Acute Qualifiers: Site of cellulitis of trunk: groin Comment: Continue local WCT, Cefepime IV, plan for wound vac (3) Cachexia Code(s): R64 - CACHEXIA Status: Acute Comment: loss of appetite and metatstaic cancer, continue Megace 40mg BID (4) Leukocytosis Code(s): D72.829 - ELEVATED WHITE BLOOD CELL COUNT, UNSPECIFIED Status: Acute Comment: Secondary to sepsis/cellulitis, improved with abx therapy, serial monitoring (5) Metastatic squamous cell carcinoma Code(s): C79.9 - SECONDARY MALIGNANT NEOPLASM OF UNSPECIFIED SITE Status: Acute Comment: involving the inguinal lymph node, S/P chemotx cycle DURING PREVIOUS ADMISSION. Now S/P lymphnode resection in Jul at [place]. Resection site now infected. Continue abx and possible wound vac per surgery, see above for details, consult Palliative care service given poor prognosis and clinical decline - Plan continue antibiotics, PT/OT, child protective services social worker, DVT proph w/SCDs Continue supportive mgmt -: WCT for local care and wound vac -: Continue Cefepime -: Palliative care consult/consider transition to hospice care -: Increase [place] 5/325mg 1-2 po q4h prn * Continue KCL, Mg++, PO3 replacement * AM lab: BMP, PO3 * Code Status: DNAR confirmed with pt
[2018-10-12] MEDS: Megestrol Acetate 800 MG/20 ML UDCUP PO SCH (20:21)
[2018-10-13] MEDS: Sodium Chloride 0.9% 1,000 ML IV SCH ×3 (01:36→16:00)
[2018-10-13] MEDS: HYDROcodone/Acetaminophen 5/325 mg Tablet PO PRN ×3 (05:15→17:59)
[2018-10-13 07:20] LABS: Anion Gap 9 mmol/L (10-20); BUN (Urea Nitrogen) 9 mg/dL (8.4-25.7); Calc. Creatinine Clearance 98 mL/min (70-130); Calcium 7.2 mg/dL (7.8-10.44); Carbon Dioxide 19 mmol/L (23-31); Chloride 109 mmol/L (98-107); Estimated GFR-MDRD Greater than 90; Glucose 105 mg/dL (83-110); Sodium 134 mmol/L (136-145)
[2018-10-13] MEDS: Enoxaparin Sodium 30 MG/0.3 ML SYRINGE SC SCH (08:21)
[2018-10-13] MEDS: Cefepime 2 GM in Sodium Chloride 0.9% 100 ML IVPB SCH ×2 (08:21→20:55)
[2018-10-13] MEDS: Tamsulosin HCl 0.4 MG CAP PO SCH ×2 (08:22→20:55)
[2018-10-13] MEDS: Megestrol Acetate 800 MG/20 ML UDCUP PO SCH ×2 (08:22→20:54)
[2018-10-13] MEDS: K-Phos Neutral 250 MG TAB PO SCH ×4 (08:34→20:54)
[2018-10-13] MEDS ORDERED: Magnesium 2 GM/NS 0.9% 100 ML 2 GM in Premix Bag 1 BAG IVPB SCH (10:45)
--- NOTE | 2018-10-13 10:54 | PRG ---
DATE OF SERVICE: 10/13/2018 SUBJECTIVE: The patient did well overnight. He was moved to the floor. The catheter came out and he has voided without difficulty. He did get his wound VACs and they have been putting out serosanguinous fluid. He has been compliant and was eating breakfast. He has been afebrile. Vital signs stable, on appropriate antibiotics. The wound VACs have diminished the overall opening of the wound to some degree and remain intact with serosanguinous fluid at the end of bed noted. 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 Now, it presumed returns, but definitely inflammatory and infectious process of the nodes with nonhealing wounds, now with wound VACs, voiding adequately, on tamsulosin. His long-term prognosis is a very poor, and hospice has been initiated. I will continue to follow along peripherally. Please let me know if there is more that I can do from urologic standpoint. Job ID: [id number]
--- NOTE | 2018-10-13 13:55 | NM ---
RADIONUCLIDE BONE SCAN: HISTORY: Penile cancer. Restaging. FINDINGS: Physiologic uptake of radiotracer throughout the skeleton. Heterogeneously increased uptake about th e shoulders. Focal areas of extrinsic artifact are present at the left forearm and left calf. IMPRESSION: 1. Degenerative changes of the shoulders. 2. No scintigraphic evidence of osseous metastatic disease. POS: MARTI
--- NOTE | 2018-10-13 14:47 | PDOC.PN ---
- Subjective Encounter Start Date: 10/13/18 Encounter Start Time: 14:35 Subjective: f/u for metastatic squamous cell carcinoma and inguinal lymphangitis -: cellulitis on Cefepime/wound vac. - Objective Resuscitation Status - Order Detail: 10/12/18 16:21 Resuscitation Status Routine Resuscitation Status: DNAR: NO Resuscitation Discussed with: Jessie BELLA Reviewed: Yes Vital Signs & Weight: Vital Signs (12 hours) Temp Pulse Resp BP Pulse Ox 10/13/18 11:42 98.4 F 90 16 96/54 L 100 10/13/18 08:15 100 10/13/18 07:17 98.4 F 77 18 103/59 L 100 10/13/18 04:00 98.0 F 79 18 113/53 L 95 Weight Admit Weight 148 lb 3.2 oz Weight 148 lb 3.2 oz I&O: 10/12/18 10/13/18 10/14/18 06:59 06:59 06:59 Intake Total 3778 3000 Output Total 2700 2950 Balance 1078 50 Result Diagrams: 10/12/18 04:50 10/13/18 06:20 Additional Labs: Microbiology 10/08/18 17:04 Groin - Left Bacterial Culture - Final Pseudomonas aeruginosa Beta-hemolytic strep group A 10/08/18 11:49 Urine voided Urine Culture - Final 10/08/18 17:01 Groin - Right Bacterial Culture - Preliminary Pseudomonas aeruginosa Gram Negative Marko Gram Positive Cocci 10/08/18 09:57 Venous blood - Right Arm Blood Culture - Preliminary NO GROWTH AT 48 HOURS 10/08/18 09:49 Venous blood - Left Arm Blood Culture - Preliminary NO GROWTH AT 48 HOURS Laboratory Tests 05/24/18 05/25/18 10/08/18 11:01 04:20 09:49 WBC 11.0 H 7.8 17.2 H Hgb 10.2 L 9.9 L 12.3 L Plt Count 62 L Neutrophils % 84.5 H Potassium Phosphorus Magnesium 10/09/18 10/10/18 10/10/18 03:37 03:57 03:57 WBC Hgb Plt Count Neutrophils % 85.5 H Potassium 2.7 L* Phosphorus Magnesium 1.0 L 10/10/18 10/11/18 10/11/18 03:57 04:39 04:39 WBC Hgb Plt Count Neutrophils % Potassium 2.7 L* Phosphorus 1.4 L 1.3 L Magnesium 1.2 L Radiology Reviewed by me: Yes (Bone scan - no osseous metastatic process) Phys Exam - Physical Examination Constitutional: NAD frail, pale HEENT: PERRLA, sclera anicteric, oral pharynx no lesions Neck: no nodes, no JVD, supple, full ROM Respiratory: no wheezing, no rales, no rhonchi, clear to auscultation bilateral S1, S2 Cardiovascular: RRR, no significant murmur, no rub, gallop Gastrointestinal: soft, non-tender, no distention, positive bowel sounds + edema of groin region with wound vacs in place Musculoskeletal: pulses present Neurological: normal sensation, moves all 4 limbs Psychiatric: A&O x 3 Skin: normal turgor, cap refill <2 seconds Dx/Plan (1) Sepsis Code(s): A41.9 - SEPSIS, UNSPECIFIED ORGANISM Status: Acute Qualifiers: Sepsis type: Pseudomonas Qualified Code(s): A41.52 - Sepsis due to Pseudomonas Comment: S/P Inguinal node resection. Isolated Pseudomonas and Strep A, continue Cefepime, Trend WBC, wound vac application (2) Cellulitis Code(s): L03.90 - CELLULITIS, UNSPECIFIED Status: Acute Qualifiers: Site of cellulitis of trunk: groin Comment: Continue local WCT, Cefepime IV, wound vacs in place (3) Cachexia Code(s): R64 - CACHEXIA Status: Acute Comment: loss of appetite and metatstaic cancer, continue Megace 400mg BID (4) Leukocytosis Code(s): D72.829 - ELEVATED WHITE BLOOD CELL COUNT, UNSPECIFIED Status: Acute Comment: Secondary to sepsis/cellulitis, improved with abx therapy, serial monitoring (5) Metastatic squamous cell carcinoma Code(s): C79.9 - SECONDARY MALIGNANT NEOPLASM OF UNSPECIFIED SITE Status: Acute Comment: involving the inguinal lymph node, S/P chemotx cycle DURING PREVIOUS ADMISSION. Now S/P lymphnode resection in Jul at [place]. Resection site now infected. Continue abx and possible wound vac per surgery, see above for details, consult Palliative care service given poor prognosis and clinical decline - Plan continue antibiotics, PT/OT, social services designee, DVT proph w/SCDs Continue supportive mgmt -: Continue Cefepime -: WCT with local wound vac mgmt -: Start KPhos QID -: Continue Tamsulosin 0.4mg BID * AM lab: BMP, PO3 * Palliative/Hospice options
[2018-10-13] MEDS ORDERED: Magnesium Oxide 400 MG TAB PO SCH (17:45)
[2018-10-14] MEDS: HYDROcodone/Acetaminophen 5/325 mg Tablet PO PRN ×2 (02:00→20:01)
[2018-10-14] MEDS: Sodium Chloride 0.9% 1,000 ML IV SCH ×2 (02:03→17:50)
[2018-10-14 06:10] LABS: Phosphorus 1.1 mg/dL (2.3-4.7)
[2018-10-14 06:17] LABS: Anion Gap 6 mmol/L (10-20); BUN (Urea Nitrogen) 11 mg/dL (8.4-25.7); Calc. Creatinine Clearance 92 mL/min (70-130); Calcium 6.6 mg/dL (7.8-10.44); Carbon Dioxide 22 mmol/L (23-31); Chloride 108 mmol/L (98-107); Estimated GFR-MDRD Greater than 90; Glucose 96 mg/dL (83-110); Sodium 133 mmol/L (136-145)
[2018-10-14 06:21] LABS: Potassium 2.9 mmol/L (3.5-5.1)
[2018-10-14] MEDS ORDERED: POTASSIUM ACETATE IVPB SCH (06:45)
[2018-10-14] MEDS ORDERED: [UNRECOGNIZED DRUG - OTHER] IVPB SCH (06:45)
[2018-10-14] MEDS ORDERED: SODIUM PHOSPHATE IVPB SCH (06:45)
[2018-10-14] MEDS: Cefepime 2 GM in Sodium Chloride 0.9% 100 ML IVPB SCH ×2 (08:05→19:59)
[2018-10-14] MEDS: Megestrol Acetate 800 MG/20 ML UDCUP PO SCH ×2 (08:06→19:59)
[2018-10-14] MEDS: K-Phos Neutral 250 MG TAB PO SCH ×4 (08:08→19:59)
[2018-10-14] MEDS: Magnesium Oxide 400 MG TAB PO SCH ×2 (08:08→19:59)
[2018-10-14] MEDS: Tamsulosin HCl 0.4 MG CAP PO SCH ×2 (08:08→19:59)
--- NOTE | 2018-10-14 11:51 | PRG ---
DATE OF SERVICE: 10/14/2018 SUBJECTIVE: The patient did well overnight. He has no complaints. He is feeling good and ready for breakfast. He has been voiding without difficulty and was still able to sleep well through the night. OBJECTIVE: His vital signs have been stable. No concerning changes nor concern for decreased urine output on exam. Wound VACs were in good position with significant serosanguineous drainage noted in the collecting component. There is some edema of the scrotum and penis, but not obstructive in any fashion, not concerning for erythema or infection. 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 Hospice has been initiated. Given his poor prognosis , I would continue his tamsulosin bid to help his voiding/BPH, but otherwise continue antibiotics per culture. Please call for further concerns. I have requested that he call our office if he is discharged and has further concerns or if there is something I can do from urologic standpoint. Job ID: [id number] MTDD
--- NOTE | 2018-10-14 15:13 | PDOC.GSPN ---
Surgery Progress Note: Subj - Subjective Narrative: Mr. Arciniega is feeling fine. He is not having any pain or drainage at the groin wounds. The vacs are in good position with minimal output. I recommended continuing with VAC management of his wounds to prevent periwound skin damage and to prevent buildup of fluid within the wound since there is a large degree of tunneling. I don't expect this to ever heal given his ongoing progressive malignancy. Since wound care is really just palliative at this point, I think twice weekly VAC changes are adequate. I am signing off for now. He can follow up with the wound care center as needed. Surgery Progress Note: Obj - Vital signs Vital signs: Vital Signs - Most Recent Temp Pulse Resp BP Pulse Ox 98.4 F 89 16 98/53 L 100 10/14/18 11:54 10/14/18 11:54 10/14/18 11:54 10/14/18 11:54 10/14/18 11:54 Surgery Progress Note: Results - Labs Result Diagrams: 10/12/18 04:50 10/14/18 05:04 Lab results: Laboratory Results - last 24 hr 10/14/18 10/14/18 05:04 05:04 Sodium 133 L Potassium 2.9 L* Chloride 108 H Carbon Dioxide 22 L Anion Gap 6 L BUN 11 Creatinine 0.70 Estimated GFR (MDRD) Greater than 90 Glucose 96 Calcium 6.6 L Phosphorus 1.1 L
--- NOTE | 2018-10-14 16:09 | CT ---
CT CHEST WITHOUT CONTRAST: Multiple axial tomograms were obtained through the chest without IV enhancement. INDICATION: Hypercalcemia. History of squamous cell carcinoma. COMPARISON: No comparison study. Correlation is made to PET CT dated 07/06/2018. That exam revealed no chest abn ormality. It demonstrated inguinal adenopathy. FINDINGS: There is a moderate-sized left pleural effusion with mild lung basilar atelectasis. There is mild pa renchymal stranding bilaterally. There are scattered tiny nodules in both apical regions measuring i n the 2-3 mm range. A tiny 3 mm nodule in the right middle lobe. Mediastinum unremarkable. No adenopathy apparent. No axillary adenopathy. Images through the upper abdomen show a small amount of fluid around the liver margin. The kidneys a re partially imaged and there is evidence of mild collecting structure prominence, although this is i ncompletely evaluated. No liver or spleen lesion. Pancreas unremarkable. Osseous structures unremarkable. IMPRESSION: 1. Small left pleural effusion with mild left basilar atelectasis. 2. Low volume ascites around the liver and spleen margins. 3. Question prominence of the renal collecting structures. This is inadequately evaluated. 4. Chronic lung parenchymal changes with some parenchymal stranding and scattered tiny nodules as de scribed. POS: [facility]
--- NOTE | 2018-10-14 17:22 | PDOC.PN ---
- Subjective Encounter Start Date: 10/14/18 Encounter Start Time: 17:15 Subjective: f/u for inguinal lymphangitis/cellulitis with wound vac and Cefepime. -: Feels ok overall. Appetite improved. - Objective Resuscitation Status - Order Detail: 10/12/18 16:21 Resuscitation Status Routine Resuscitation Status: DNAR: NO Resuscitation Discussed with: Patient SHAYNE Reviewed: Yes Vital Signs & Weight: Vital Signs (12 hours) Temp Pulse Resp BP Pulse Ox 10/14/18 11:54 98.4 F 89 16 98/53 L 100 10/14/18 08:00 95 10/14/18 07:57 98.2 F 84 16 107/56 L 95 Weight Admit Weight 148 lb 3.2 oz Weight 148 lb 3.2 oz I&O: 10/13/18 10/14/18 10/15/18 06:59 06:59 06:59 Intake Total 3000 2200 Output Total 2950 175 Balance 50 2024 Result Diagrams: 10/12/18 04:50 10/14/18 05:04 Additional Labs: Microbiology 10/08/18 17:04 Groin - Left Bacterial Culture - Final Pseudomonas aeruginosa Beta-hemolytic strep group A 10/08/18 11:49 Urine voided Urine Culture - Final 10/08/18 17:01 Groin - Right Bacterial Culture - Preliminary Pseudomonas aeruginosa Gram Negative Marko Gram Positive Cocci 10/08/18 09:57 Venous blood - Right Arm Blood Culture - Preliminary NO GROWTH AT 48 HOURS 10/08/18 09:49 Venous blood - Left Arm Blood Culture - Preliminary NO GROWTH AT 48 HOURS Laboratory Tests 05/24/18 05/25/18 10/08/18 11:01 04:20 09:49 WBC 11.0 H 7.8 17.2 H Hgb 10.2 L 9.9 L 12.3 L Plt Count 62 L Neutrophils % 84.5 H Potassium Phosphorus Magnesium 10/09/18 10/10/18 10/10/18 03:37 03:57 03:57 WBC Hgb Plt Count Neutrophils % 85.5 H Potassium 2.7 L* Phosphorus Magnesium 1.0 L 10/10/18 10/11/18 10/11/18 03:57 04:39 04:39 WBC Hgb Plt Count Neutrophils % Potassium 2.7 L* Phosphorus 1.4 L 1.3 L Magnesium 1.2 L Radiology Reviewed by me: Yes (CT chest - no osseous abnormality) Phys Exam - Physical Examination Constitutional: NAD HEENT: PERRLA, sclera anicteric, oral pharynx no lesions Neck: no nodes, no JVD, supple, full ROM Respiratory: no wheezing, no rales, no rhonchi, clear to auscultation bilateral S1, S2 Cardiovascular: RRR, no significant murmur, no rub, gallop Gastrointestinal: soft, non-tender, no distention, positive bowel sounds inguinal edema and wound vacs in place Musculoskeletal: pulses present Neurological: normal sensation, moves all 4 limbs Psychiatric: A&O x 3 Skin: normal turgor, cap refill <2 seconds Dx/Plan (1) Sepsis Code(s): A41.9 - SEPSIS, UNSPECIFIED ORGANISM Status: Acute Qualifiers: Sepsis type: Pseudomonas Qualified Code(s): A41.52 - Sepsis due to Pseudomonas Comment: S/P Inguinal node resection. Isolated Pseudomonas and Strep A, continue Cefepime, Trend WBC, wound vac application (2) Cellulitis Code(s): L03.90 - CELLULITIS, UNSPECIFIED Status: Acute Qualifiers: Site of cellulitis of trunk: groin Comment: Continue local WCT, Cefepime IV, wound vacs in place, likely transition to po abx in next 48h (3) Cachexia Code(s): R64 - CACHEXIA Status: Acute Comment: loss of appetite and metatstaic cancer, continue Megace 400mg BID (4) Leukocytosis Code(s): D72.829 - ELEVATED WHITE BLOOD CELL COUNT, UNSPECIFIED Status: Acute Comment: Secondary to sepsis/cellulitis, improved with abx therapy, serial monitoring (5) Metastatic squamous cell carcinoma Code(s): C79.9 - SECONDARY MALIGNANT NEOPLASM OF UNSPECIFIED SITE Status: Acute Comment: involving the inguinal lymph node, S/P chemotx cycle DURING PREVIOUS ADMISSION. Now S/P lymphnode resection in Sep at [place]. Resection site now infected. 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
[2018-10-14] MEDS ORDERED: Potassium Chloride 20 MEQ TAB PO SCH (17:30)
[2018-10-15] MEDS: HYDROcodone/Acetaminophen 5/325 mg Tablet PO PRN ×3 (02:48→20:45)
[2018-10-15] MEDS: Sodium Chloride 0.9% 1,000 ML IV SCH ×3 (02:50→20:49)
[2018-10-15 06:03] LABS: Anion Gap 9 mmol/L (10-20); BUN (Urea Nitrogen) 11 mg/dL (8.4-25.7); Calc. Creatinine Clearance 99 mL/min (70-130); Calcium 6.1 mg/dL (7.8-10.44); Carbon Dioxide 17 mmol/L (23-31); Chloride 110 mmol/L (98-107); Estimated GFR-MDRD Greater than 90; Glucose 110 mg/dL (83-110); Phosphorus 1.5 mg/dL (2.3-4.7); Potassium 3.3 mmol/L (3.5-5.1); Sodium 133 mmol/L (136-145)
[2018-10-15] MEDS ORDERED: SODIUM PHOSPHATE IVPB SCH (06:45)
[2018-10-15] MEDS ORDERED: [UNRECOGNIZED DRUG - OTHER] IVPB SCH (06:45)
[2018-10-15] MEDS ORDERED: POTASSIUM ACETATE IVPB SCH (06:45)
[2018-10-15] MEDS: Megestrol Acetate 800 MG/20 ML UDCUP PO SCH ×2 (07:49→20:45)
[2018-10-15] MEDS: Potassium Chloride 20 MEQ TAB PO SCH ×2 (07:53→17:23)
[2018-10-15] MEDS: Magnesium Oxide 400 MG TAB PO SCH ×2 (07:53→20:44)
[2018-10-15] MEDS: K-Phos Neutral 250 MG TAB PO SCH ×4 (07:53→20:44)
[2018-10-15] MEDS: Tamsulosin HCl 0.4 MG CAP PO SCH ×2 (07:53→20:44)
[2018-10-15] MEDS: Cefepime 2 GM in Sodium Chloride 0.9% 100 ML IVPB SCH ×2 (11:32→20:45)
[2018-10-15] MEDS ORDERED: Morphine 2 MG/ML SYRINGE SLOW IVP PRN (14:46)
--- NOTE | 2018-10-15 17:38 | PDOC.PN ---
- Subjective Encounter Start Date: 10/15/18 Encounter Start Time: 17:35 Subjective: f/u for metastatic squamous cell carcinoma with lymphangitis -: and cellulitis s/p wound vac on Cefepime. Feels ok currently. - Objective Resuscitation Status - Order Detail: 10/12/18 16:21 Resuscitation Status Routine Resuscitation Status: DNAR: NO Resuscitation Discussed with: Patient SHAYNE Reviewed: Yes Vital Signs & Weight: Vital Signs (12 hours) Temp Pulse Resp BP Pulse Ox 10/15/18 16:00 97.8 F 85 16 95/55 L 98 10/15/18 11:44 97.7 F 81 18 94/46 L 98 10/15/18 08:00 97 10/15/18 07:55 98.0 F 85 18 96/56 L 97 Weight Admit Weight 148 lb 3.2 oz Weight 148 lb 3.2 oz I&O: 10/14/18 10/15/18 10/16/18 06:59 06:59 06:59 Intake Total 2200 3045 Output Total 175 981 Balance 2024 2063 Result Diagrams: 10/12/18 04:50 10/15/18 05:04 Additional Labs: Microbiology 10/08/18 17:04 Groin - Left Bacterial Culture - Final Pseudomonas aeruginosa Beta-hemolytic strep group A 10/08/18 11:49 Urine voided Urine Culture - Final 10/08/18 17:01 Groin - Right Bacterial Culture - Preliminary Pseudomonas aeruginosa Gram Negative Marko Gram Positive Cocci 10/08/18 09:57 Venous blood - Right Arm Blood Culture - Preliminary NO GROWTH AT 48 HOURS 10/08/18 09:49 Venous blood - Left Arm Blood Culture - Preliminary NO GROWTH AT 48 HOURS Laboratory Tests 05/24/18 05/25/18 10/08/18 11:01 04:20 09:49 WBC 11.0 H 7.8 17.2 H Hgb 10.2 L 9.9 L 12.3 L Plt Count 62 L Neutrophils % 84.5 H Potassium Phosphorus Magnesium 10/09/18 10/10/18 10/10/18 03:37 03:57 03:57 WBC Hgb Plt Count Neutrophils % 85.5 H Potassium 2.7 L* Phosphorus Magnesium 1.0 L 10/10/18 10/11/18 10/11/18 03:57 04:39 04:39 WBC Hgb Plt Count Neutrophils % Potassium 2.7 L* Phosphorus 1.4 L 1.3 L Magnesium 1.2 L Phys Exam - Physical Examination Constitutional: NAD frail, alert HEENT: PERRLA, sclera anicteric, oral pharynx no lesions Neck: no nodes, no JVD, supple, full ROM Respiratory: no wheezing, no rales, no rhonchi, clear to auscultation bilateral S1, S2 Cardiovascular: RRR, no significant murmur, no rub, gallop Gastrointestinal: soft, non-tender, no distention, positive bowel sounds generalized atrophy, wound vacs in place in bilat inguinal region Musculoskeletal: no edema, pulses present Neurological: normal sensation, moves all 4 limbs Psychiatric: A&O x 3 Skin: normal turgor, cap refill <2 seconds Dx/Plan (1) Sepsis Code(s): A41.9 - SEPSIS, UNSPECIFIED ORGANISM Status: Acute Qualifiers: Sepsis type: Pseudomonas Qualified Code(s): A41.52 - Sepsis due to Pseudomonas Comment: S/P Inguinal node resection. Isolated Pseudomonas and Strep A, continue Cefepime, Trend WBC, wound vac application (2) Cellulitis Code(s): L03.90 - CELLULITIS, UNSPECIFIED Status: Acute Qualifiers: Site of cellulitis of trunk: groin Comment: Continue local WCT, Cefepime IV, wound vacs in place, likely transition to po abx in next 48h (3) Cachexia Code(s): R64 - CACHEXIA Status: Acute Comment: loss of appetite and metatstaic cancer, continue Megace 400mg BID (4) Leukocytosis Code(s): D72.829 - ELEVATED WHITE BLOOD CELL COUNT, UNSPECIFIED Status: Acute Comment: Secondary to sepsis/cellulitis, improved with abx therapy, serial monitoring (5) Metastatic squamous cell carcinoma Code(s): C79.9 - SECONDARY MALIGNANT NEOPLASM OF UNSPECIFIED SITE Status: Acute Comment: involving the inguinal lymph node, S/P chemotx cycle DURING PREVIOUS ADMISSION. Now S/P lymphnode resection in Jul at [place]. Resection site now infected. 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
[2018-10-16] MEDS: Sodium Chloride 0.9% 1,000 ML IV SCH ×2 (06:07→16:46)
[2018-10-16 06:36] LABS: Phosphorus 1.8 mg/dL (2.3-4.7)
[2018-10-16 06:37] LABS: Anion Gap 12 mmol/L (10-20); BUN (Urea Nitrogen) 10 mg/dL (8.4-25.7); Calc. Creatinine Clearance 98 mL/min (70-130); Calcium 6.4 mg/dL (7.8-10.44); Carbon Dioxide 14 mmol/L (23-31); Chloride 110 mmol/L (98-107); Estimated GFR-MDRD Greater than 90; Glucose 85 mg/dL (83-110); Potassium 5.1 mmol/L (3.5-5.1); Sodium 131 mmol/L (136-145)
[2018-10-16] MEDS: Magnesium Oxide 400 MG TAB PO SCH ×2 (07:51→20:29)
[2018-10-16] MEDS: Tamsulosin HCl 0.4 MG CAP PO SCH ×2 (07:51→20:29)
[2018-10-16] MEDS: K-Phos Neutral 250 MG TAB PO SCH ×3 (07:52→20:29)
[2018-10-16] MEDS: Cefepime 2 GM in Sodium Chloride 0.9% 100 ML IVPB SCH ×2 (07:52→20:29)
[2018-10-16] MEDS: Potassium Chloride 20 MEQ TAB PO SCH ×2 (07:55→16:47)
[2018-10-16] MEDS: Megestrol Acetate 800 MG/20 ML UDCUP PO SCH ×2 (07:56→16:47)
--- NOTE | 2018-10-16 14:00 | EKG ---
Test Reason : DIZZINENSS/WEAKNESS Blood Pressure : / mmHG Vent. Rate : 095 BPM Atrial Rate : 095 BPM P-R Int : 178 ms QRS Dur : 092 ms QT Int : 340 ms P-R-T Axes : 085 060 103 degrees QTc Int : 427 ms Normal sinus rhythm with sinus arrhythmia Nonspecific ST and T wave abnormality Abnormal ECG Lateral ischemia Confirmed by ROMY LOYD, AMY Quigley ([id number]), news video editor IRVIN BRUSH ([id number]) on 10/16/2018 2:00:14 PM Referred By: ROMY Confirmed By:AMY STANTON MD
--- NOTE | 2018-10-16 14:29 | PDOC.PN ---
- Subjective Encounter Start Date: 10/16/18 Encounter Start Time: 14:30 Subjective: f/u for metastatic squamous cell carcinoma with lymphangitis on current -: Cefepime and wound vacs. Feels ok overall. - Objective Resuscitation Status - Order Detail: 10/12/18 16:21 Resuscitation Status Routine Resuscitation Status: DNAR: NO Resuscitation Discussed with: Patient SHAYNE Reviewed: Yes Vital Signs & Weight: Vital Signs (12 hours) Temp Pulse Resp BP BP Pulse Ox 10/16/18 11:25 99.2 F 95 20 172/77 H 99 10/16/18 08:00 97.9 F 96 20 90/55 L 100 Weight Admit Weight 148 lb 3.2 oz Weight 148 lb 3.2 oz I&O: 10/15/18 10/16/18 10/17/18 06:59 06:59 06:59 Intake Total 3045 3921 Output Total 981 875 Balance 2062 3046 Result Diagrams: 10/12/18 04:50 10/16/18 05:49 Additional Labs: Microbiology 10/08/18 17:04 Groin - Left Bacterial Culture - Final Pseudomonas aeruginosa Beta-hemolytic strep group A 10/08/18 11:49 Urine voided Urine Culture - Final 10/08/18 17:01 Groin - Right Bacterial Culture - Preliminary Pseudomonas aeruginosa Gram Negative Marko Gram Positive Cocci 10/08/18 09:57 Venous blood - Right Arm Blood Culture - Preliminary NO GROWTH AT 48 HOURS 10/08/18 09:49 Venous blood - Left Arm Blood Culture - Preliminary NO GROWTH AT 48 HOURS Laboratory Tests 05/24/18 05/25/18 10/08/18 11:01 04:20 09:49 WBC 11.0 H 7.8 17.2 H Hgb 10.2 L 9.9 L 12.3 L Plt Count 62 L Neutrophils % 84.5 H Potassium Phosphorus Magnesium 10/09/18 10/10/18 10/10/18 03:37 03:57 03:57 WBC Hgb Plt Count Neutrophils % 85.5 H Potassium 2.7 L* Phosphorus Magnesium 1.0 L 10/10/18 10/11/18 10/11/18 03:57 04:39 04:39 WBC Hgb Plt Count Neutrophils % Potassium 2.7 L* Phosphorus 1.4 L 1.3 L Magnesium 1.2 L Phys Exam - Physical Examination Constitutional: NAD HEENT: PERRLA, sclera anicteric, oral pharynx no lesions Neck: no nodes, no JVD, supple, full ROM Respiratory: no wheezing, no rales, no rhonchi, clear to auscultation bilateral S1, S2 Cardiovascular: RRR, no significant murmur, no rub, gallop Gastrointestinal: soft, non-tender, no distention, positive bowel sounds bilat inguinal wound vacs in place generalized atrophy Musculoskeletal: pulses present Neurological: normal sensation, moves all 4 limbs Psychiatric: A&O x 3 Skin: normal turgor, cap refill <2 seconds Dx/Plan (1) Metastatic squamous cell carcinoma Code(s): C79.9 - SECONDARY MALIGNANT NEOPLASM OF UNSPECIFIED SITE Status: Acute Comment: involving the inguinal lymph node, S/P chemotx cycle DURING PREVIOUS ADMISSION. Now S/P lymphnode resection in Jul at [place]. Resection site now infected. Continue abx and possible wound vac per surgery, see above for details, consult Palliative care service given poor prognosis and clinical decline (2) Sepsis Code(s): A41.9 - SEPSIS, UNSPECIFIED ORGANISM Status: Acute Qualifiers: Sepsis type: Pseudomonas Qualified Code(s): A41.52 - Sepsis due to Pseudomonas Comment: S/P Inguinal node resection. Isolated Pseudomonas and Strep A, continue Cefepime, Trend WBC, wound vac application, resolved (3) Cellulitis Code(s): L03.90 - CELLULITIS, UNSPECIFIED Status: Acute Qualifiers: Site of cellulitis of trunk: groin Comment: Continue local WCT, Cefepime IV, wound vacs in place, likely transition to po abx in next 48h (4) Cachexia Code(s): R64 - CACHEXIA Status: Acute Comment: loss of appetite and metatstaic cancer, continue Megace 400mg BID (5) Leukocytosis Code(s): D72.829 - ELEVATED WHITE BLOOD CELL COUNT, UNSPECIFIED Status: Acute Comment: Secondary to sepsis/cellulitis, improved with abx therapy, serial monitoring - Plan 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
[2018-10-16] MEDS: HYDROcodone/Acetaminophen 5/325 mg Tablet PO PRN (19:07)
[2018-10-17] MEDS: Sodium Chloride 0.9% 1,000 ML IV SCH ×3 (05:06→23:55)
[2018-10-17] MEDS: Magnesium Oxide 400 MG TAB PO SCH ×2 (07:54→20:37)
[2018-10-17] MEDS: Potassium Chloride 20 MEQ TAB PO SCH ×2 (07:54→17:11)
[2018-10-17] MEDS: HYDROcodone/Acetaminophen 5/325 mg Tablet PO PRN ×3 (07:55→23:49)
[2018-10-17] MEDS: Tamsulosin HCl 0.4 MG CAP PO SCH ×2 (07:55→20:37)
[2018-10-17] MEDS: K-Phos Neutral 250 MG TAB PO SCH ×2 (07:56→20:37)
[2018-10-17] MEDS: Megestrol Acetate 800 MG/20 ML UDCUP PO SCH ×2 (07:57→17:12)
[2018-10-17] MEDS: Cefepime 2 GM in Sodium Chloride 0.9% 100 ML IVPB SCH ×2 (07:58→20:37)
[2018-10-17 08:03] LABS: Anion Gap 10 mmol/L (10-20); BUN (Urea Nitrogen) 9 mg/dL (8.4-25.7); Calc. Creatinine Clearance 106 mL/min (70-130); Calcium 6.6 mg/dL (7.8-10.44); Carbon Dioxide 16 mmol/L (23-31); Chloride 112 mmol/L (98-107); Estimated GFR-MDRD Greater than 90; Glucose 80 mg/dL (83-110); Potassium 4.7 mmol/L (3.5-5.1); Sodium 133 mmol/L (136-145)
[2018-10-17 08:09] LABS: Phosphorus 1.7 mg/dL (2.3-4.7)
--- NOTE | 2018-10-17 17:26 | PDOC.PN ---
- Subjective Encounter Start Date: 10/17/18 Encounter Start Time: 17:20 Subjective: f/u for metastatic squamous cell carcinoma with lymphangitis with -: pseudomonas/strep spp on Cefepime, s/p I&D with wound vac. - Objective Resuscitation Status - Order Detail: 10/12/18 16:21 Resuscitation Status Routine Resuscitation Status: DNAR: NO Resuscitation Discussed with: Patient SHAYNE Reviewed: Yes Vital Signs & Weight: Vital Signs (12 hours) Temp Pulse Resp BP Pulse Ox 10/17/18 08:00 98.1 F 112 H 18 93/56 L 96 Weight Admit Weight 148 lb 3.2 oz Weight 148 lb 3.2 oz I&O: 10/16/18 10/17/18 10/18/18 06:59 06:59 06:59 Intake Total 3921 4060 Output Total 875 2150 Balance 3046 1910 Result Diagrams: 10/12/18 04:50 10/17/18 07:10 Additional Labs: Microbiology 10/08/18 17:04 Groin - Left Bacterial Culture - Final Pseudomonas aeruginosa Beta-hemolytic strep group A 10/08/18 11:49 Urine voided Urine Culture - Final 10/08/18 17:01 Groin - Right Bacterial Culture - Preliminary Pseudomonas aeruginosa Gram Negative Marko Gram Positive Cocci 10/08/18 09:57 Venous blood - Right Arm Blood Culture - Preliminary NO GROWTH AT 48 HOURS 10/08/18 09:49 Venous blood - Left Arm Blood Culture - Preliminary NO GROWTH AT 48 HOURS Laboratory Tests 05/24/18 05/25/18 10/08/18 11:01 04:20 09:49 WBC 11.0 H 7.8 17.2 H Hgb 10.2 L 9.9 L 12.3 L Plt Count 62 L Neutrophils % 84.5 H Sodium Potassium Phosphorus Magnesium 10/09/18 10/10/18 10/10/18 03:37 03:57 03:57 WBC Hgb Plt Count Neutrophils % 85.5 H Sodium Potassium 2.7 L* Phosphorus Magnesium 1.0 L 10/10/18 10/11/18 10/11/18 03:57 04:39 04:39 WBC Hgb Plt Count Neutrophils % Sodium Potassium 2.7 L* Phosphorus 1.4 L 1.3 L Magnesium 1.2 L 10/15/18 10/16/18 05:04 05:49 WBC Hgb Plt Count Neutrophils % Sodium 133 L Potassium Phosphorus 1.8 L Magnesium Laboratory Tests 10/10/18 10/11/18 10/12/18 03:57 04:39 04:50 Phosphorus 1.4 L 1.3 L 1.2 L 10/13/18 10/14/18 10/15/18 06:20 05:04 05:04 Phosphorus 1.0 L 1.1 L 1.5 L 10/16/18 10/17/18 05:49 07:10 Phosphorus 1.8 L 1.7 L Phys Exam - Physical Examination Constitutional: NAD alert, responsive HEENT: PERRLA, sclera anicteric, oral pharynx no lesions Neck: no nodes, no JVD, supple, full ROM Respiratory: no wheezing, no rales, no rhonchi, clear to auscultation bilateral S1, S2 Cardiovascular: RRR, no significant murmur, no rub, gallop Gastrointestinal: soft, non-tender, no distention, positive bowel sounds inguinal edema, wound vacs in place Musculoskeletal: pulses present Neurological: normal sensation, moves all 4 limbs Psychiatric: A&O x 3 Skin: normal turgor, cap refill <2 seconds Dx/Plan (1) Metastatic squamous cell carcinoma Code(s): C79.9 - SECONDARY MALIGNANT NEOPLASM OF UNSPECIFIED SITE Status: Acute Comment: involving the inguinal lymph node, S/P chemotx cycle DURING PREVIOUS ADMISSION. Now S/P lymphnode resection in Jul at [place]. Resection site now infected. Continue abx and possible wound vac per surgery, see above for details, consult Palliative care service given poor prognosis and clinical decline (2) Sepsis Code(s): A41.9 - SEPSIS, UNSPECIFIED ORGANISM Status: Acute Qualifiers: Sepsis type: Pseudomonas Qualified Code(s): A41.52 - Sepsis due to Pseudomonas Comment: S/P Inguinal node resection. Isolated Pseudomonas and Strep A, continue Cefepime, Trend WBC, wound vac application, resolved (3) Cellulitis Code(s): L03.90 - CELLULITIS, UNSPECIFIED Status: Acute Qualifiers: Site of cellulitis of trunk: groin Comment: Continue local WCT, Cefepime IV, wound vacs in place, likely transition to po abx in next 48h (4) Cachexia Code(s): R64 - CACHEXIA Status: Acute Comment: loss of appetite and metatstaic cancer, continue Megace 400mg BID (5) Leukocytosis Code(s): D72.829 - ELEVATED WHITE BLOOD CELL COUNT, UNSPECIFIED Status: Acute Comment: Secondary to sepsis/cellulitis, improved with abx therapy, serial monitoring - Plan 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
[2018-10-18] MEDS: Sodium Chloride 0.9% 1,000 ML IV SCH ×2 (05:26→16:09)
[2018-10-18] MEDS: HYDROcodone/Acetaminophen 5/325 mg Tablet PO PRN ×2 (05:41→15:56)
[2018-10-18] MEDS: Megestrol Acetate 800 MG/20 ML UDCUP PO SCH ×2 (07:40→17:59)
[2018-10-18] MEDS: Cefepime 2 GM in Sodium Chloride 0.9% 100 ML IVPB SCH ×2 (07:41→21:25)
[2018-10-18] MEDS: Tamsulosin HCl 0.4 MG CAP PO SCH ×2 (07:42→21:25)
[2018-10-18] MEDS: K-Phos Neutral 250 MG TAB PO SCH ×2 (07:42→21:25)
[2018-10-18] MEDS: Potassium Chloride 20 MEQ TAB PO SCH (07:42)
[2018-10-18] MEDS: Magnesium Oxide 400 MG TAB PO SCH ×2 (07:42→21:25)
--- NOTE | 2018-10-18 17:46 | PDOC.PN ---
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 Awaiting SNF options. - Objective Resuscitation Status - Order Detail: 10/12/18 16:21 Resuscitation Status Routine Resuscitation Status: DNAR: NO Resuscitation Discussed with: Patient MAR Reviewed: Yes Vital Signs & Weight: Vital Signs (12 hours) Temp Pulse Resp BP Pulse Ox 10/18/18 08:00 97.8 F 85 18 104/65 97 10/18/18 07:39 97.9 F 87 20 104/65 97 10/18/18 07:34 97 Weight Admit Weight 148 lb 3.2 oz Weight 148 lb 3.2 oz I&O: 10/17/18 10/18/18 10/19/18 06:59 06:59 06:59 Intake Total 4060 4853 Output Total 2150 4050 200 Balance 1910 803 -200 Result Diagrams: 10/12/18 04:50 10/17/18 07:10 Additional Labs: Microbiology 10/08/18 17:04 Groin - Left Bacterial Culture - Final Pseudomonas aeruginosa Beta-hemolytic strep group A 10/08/18 11:49 Urine voided Urine Culture - Final 10/08/18 17:01 Groin - Right Bacterial Culture - Preliminary Pseudomonas aeruginosa Gram Negative Marko Gram Positive Cocci 10/08/18 09:57 Venous blood - Right Arm Blood Culture - Preliminary NO GROWTH AT 48 HOURS 10/08/18 09:49 Venous blood - Left Arm Blood Culture - Preliminary NO GROWTH AT 48 HOURS Laboratory Tests 05/24/18 05/25/18 10/08/18 11:01 04:20 09:49 WBC 11.0 H 7.8 17.2 H Hgb 10.2 L 9.9 L 12.3 L Plt Count 62 L Neutrophils % 84.5 H Sodium Potassium Phosphorus Magnesium 10/09/18 10/10/18 10/10/18 03:37 03:57 03:57 WBC Hgb Plt Count Neutrophils % 85.5 H Sodium Potassium 2.7 L* Phosphorus Magnesium 1.0 L 10/10/18 10/11/18 10/11/18 03:57 04:39 04:39 WBC Hgb Plt Count Neutrophils % Sodium Potassium 2.7 L* Phosphorus 1.4 L 1.3 L Magnesium 1.2 L 10/12/18 10/13/18 10/14/18 04:50 06:20 05:04 WBC Hgb Plt Count Neutrophils % Sodium Potassium Phosphorus 1.2 L 1.0 L 1.1 L Magnesium 10/15/18 10/16/18 10/17/18 05:04 05:49 07:10 WBC Hgb Plt Count Neutrophils % Sodium 133 L Potassium Phosphorus 1.5 L 1.8 L 1.7 L Magnesium Phys Exam - Physical Examination Constitutional: NAD HEENT: PERRLA, sclera anicteric, oral pharynx no lesions Neck: no nodes, no JVD, supple, full ROM Respiratory: no wheezing, no rales, no rhonchi, clear to auscultation bilateral S1, S2 Cardiovascular: RRR, no significant murmur, no rub, gallop Gastrointestinal: soft, non-tender, no distention, positive bowel sounds wound vacs in inguinal region bilat Musculoskeletal: pulses present, edema present Neurological: normal sensation, moves all 4 limbs Psychiatric: A&O x 3 Skin: normal turgor, cap refill <2 seconds Deviation from normal: + large scrotal edema Dx/Plan (1) Metastatic squamous cell carcinoma Code(s): C79.9 - SECONDARY MALIGNANT NEOPLASM OF UNSPECIFIED SITE Status: Acute Comment: involving the inguinal lymph node, S/P chemotx cycle DURING PREVIOUS ADMISSION. Now S/P lymphnode resection in Jul at [place]. Resection site now infected. Continue abx and possible wound vac per surgery, see above for details, consult Palliative care service given poor prognosis and clinical decline (2) Sepsis Code(s): A41.9 - SEPSIS, UNSPECIFIED ORGANISM Status: Acute Qualifiers: Sepsis type: Pseudomonas Qualified Code(s): A41.52 - Sepsis due to Pseudomonas Comment: S/P Inguinal node resection. Isolated Pseudomonas and Strep A, continue Cefepime, Trend WBC, wound vac application, resolved (3) Cellulitis Code(s): L03.90 - CELLULITIS, UNSPECIFIED Status: Acute Qualifiers: Site of cellulitis of trunk: groin Comment: Continue local WCT, Cefepime IV, wound vacs in place, likely transition to po abx in next 48h (4) Cachexia Code(s): R64 - CACHEXIA Status: Acute Comment: loss of appetite and metatstaic cancer, continue Megace 400mg BID (5) Leukocytosis Code(s): D72.829 - ELEVATED WHITE BLOOD CELL COUNT, UNSPECIFIED Status: Acute Comment: Secondary to sepsis/cellulitis, improved with abx therapy, serial monitoring - Plan continue antibiotics, PT/OT, out of bed/ambulate Stable currently -: WCT with wound vac mgmt -: Continue Cefepime another 48h -: CM assisting with SNF options -: PT for mobilization * Pain control with [place]
[2018-10-19] MEDS: HYDROcodone/Acetaminophen 5/325 mg Tablet PO PRN ×4 (00:56→22:42)
[2018-10-19] MEDS: Sodium Chloride 0.9% 1,000 ML IV SCH ×2 (03:55→15:13)
[2018-10-19] MEDS: Cefepime 2 GM in Sodium Chloride 0.9% 100 ML IVPB SCH ×2 (09:39→20:26)
[2018-10-19] MEDS: Megestrol Acetate 800 MG/20 ML UDCUP PO SCH ×2 (09:40→17:02)
[2018-10-19] MEDS: K-Phos Neutral 250 MG TAB PO SCH ×2 (09:41→20:27)
[2018-10-19] MEDS: Magnesium Oxide 400 MG TAB PO SCH ×2 (09:41→20:28)
[2018-10-19] MEDS: Potassium Chloride 20 MEQ TAB PO SCH (09:41)
[2018-10-19] MEDS: Tamsulosin HCl 0.4 MG CAP PO SCH ×2 (09:41→20:28)
--- NOTE | 2018-10-19 13:02 | PRG ---
DATE OF SERVICE: 10/19/2018 SUBJECTIVE: The patient has done well over the past several days and has no complaints of pain. He is not getting out of bed, but he is trying to do leg presses and movements within the bed. He was concerned about scrotal swelling, which we reviewed. He has been eating well per his report. PHYSICAL EXAMINATION: GENERAL: He is comfortable in the bed. VITAL SIGNS: Stable. Saturating 97% on room air. He is having excellent urine output by voiding, about 3100 over the last 24 hours and approximately 400 over 4 days from the wound VAC. His scrotum is significantly edematous without any erythema, tenderness, or breakdown. The wound VACs are in place. It did appear to be getting smaller in the actual opening of the wound. Most recent labs arguing well with a mild hyponatremia. ASSESSMENT: We have a 73-year-old male with at least T2 G2-2 squamous cell carcinoma of the penis, status post partial penectomy in December, status post neoadjuvant chemotherapy before bilateral inguinal lymph node dissection in July with postop nonhealing wounds and infection leading to sepsis, for which he was admitted and now has bilateral wound VACs, which are certainly easier for him to maintain and likely to continue with drainage indefinitely. Continue current management. Also, ensure the patient's scrotum is elevated all times with a towel or some sort of bedding. Job ID: [id number] [facility]
--- NOTE | 2018-10-19 17:25 | PDOC.PN ---
- Subjective Encounter Start Date: 10/19/18 Encounter Start Time: 17:25 Subjective: f/u for lymphangitis with wound vacs on current Cefepime. Overall -: feels good. - Objective Resuscitation Status - Order Detail: 10/12/18 16:21 Resuscitation Status Routine Resuscitation Status: DNAR: NO Resuscitation Discussed with: Patient SHAYNE Reviewed: Yes Vital Signs & Weight: Vital Signs (12 hours) Temp Pulse Resp BP Pulse Ox 10/19/18 08:00 97.7 F 88 16 102/54 L 97 Weight Admit Weight 148 lb 3.2 oz Weight 148 lb 3.2 oz I&O: 10/18/18 10/19/18 10/20/18 06:59 06:59 06:59 Intake Total 4853 4694 Output Total 4050 3500 Balance 803 1194 Result Diagrams: 10/12/18 04:50 10/17/18 07:10 Additional Labs: Microbiology 10/08/18 17:04 Groin - Left Bacterial Culture - Final Pseudomonas aeruginosa Beta-hemolytic strep group A 10/08/18 11:49 Urine voided Urine Culture - Final 10/08/18 17:01 Groin - Right Bacterial Culture - Preliminary Pseudomonas aeruginosa Gram Negative Marko Gram Positive Cocci 10/08/18 09:57 Venous blood - Right Arm Blood Culture - Preliminary NO GROWTH AT 48 HOURS 10/08/18 09:49 Venous blood - Left Arm Blood Culture - Preliminary NO GROWTH AT 48 HOURS Laboratory Tests 05/24/18 05/25/18 10/08/18 11:01 04:20 09:49 WBC 11.0 H 7.8 17.2 H Hgb 10.2 L 9.9 L 12.3 L Plt Count 62 L Neutrophils % 84.5 H Sodium Potassium Phosphorus Magnesium 10/09/18 10/10/18 10/10/18 03:37 03:57 03:57 WBC Hgb Plt Count Neutrophils % 85.5 H Sodium Potassium 2.7 L* Phosphorus Magnesium 1.0 L 10/10/18 10/11/18 10/11/18 03:57 04:39 04:39 WBC Hgb Plt Count Neutrophils % Sodium Potassium 2.7 L* Phosphorus 1.4 L 1.3 L Magnesium 1.2 L 10/12/18 10/13/18 10/14/18 04:50 06:20 05:04 WBC Hgb Plt Count Neutrophils % Sodium Potassium Phosphorus 1.2 L 1.0 L 1.1 L Magnesium 10/15/18 10/16/18 10/17/18 05:04 05:49 07:10 WBC Hgb Plt Count Neutrophils % Sodium 133 L Potassium Phosphorus 1.5 L 1.8 L 1.7 L Magnesium Phys Exam - Physical Examination Constitutional: NAD HEENT: PERRLA, sclera anicteric, oral pharynx no lesions Neck: no nodes, no JVD, supple, full ROM Respiratory: no wheezing, no rales, no rhonchi, clear to auscultation bilateral S1, S2 Cardiovascular: RRR, no significant murmur, no rub, gallop + edema of pelvic/suprapubic region Gastrointestinal: soft, non-tender, no distention, positive bowel sounds Musculoskeletal: pulses present, edema present Neurological: normal sensation, moves all 4 limbs Psychiatric: A&O x 3 Skin: normal turgor, cap refill <2 seconds Dx/Plan (1) Metastatic squamous cell carcinoma Code(s): C79.9 - SECONDARY MALIGNANT NEOPLASM OF UNSPECIFIED SITE Status: Acute Comment: Appears to be contained and in remission per Med Oncology, general surveillance (2) Sepsis Code(s): A41.9 - SEPSIS, UNSPECIFIED ORGANISM Status: Acute Qualifiers: Sepsis type: Pseudomonas Qualified Code(s): A41.52 - Sepsis due to Pseudomonas Comment: S/P Inguinal node resection. Isolated Pseudomonas and Strep A, continue Cefepime, Trend WBC, wound vac application, resolved (3) Cellulitis Code(s): L03.90 - CELLULITIS, UNSPECIFIED Status: Acute Qualifiers: Site of cellulitis of trunk: groin Comment: Continue local WCT, Cefepime IV, wound vacs in place, likely transition to po abx in next 48h (4) Cachexia Code(s): R64 - CACHEXIA Status: Acute Comment: loss of appetite and metatstaic cancer, continue Megace 400mg BID (5) Leukocytosis Code(s): D72.829 - ELEVATED WHITE BLOOD CELL COUNT, UNSPECIFIED Status: Acute Comment: Secondary to sepsis/cellulitis, improved with abx therapy, serial monitoring - Plan plan discussed w/ family, 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
[2018-10-20] MEDS: Sodium Chloride 0.9% 1,000 ML IV SCH (02:00)
[2018-10-20] MEDS: HYDROcodone/Acetaminophen 5/325 mg Tablet PO PRN ×3 (07:38→16:26)
[2018-10-20] MEDS: K-Phos Neutral 250 MG TAB PO SCH (07:38)
[2018-10-20] MEDS: Magnesium Oxide 400 MG TAB PO SCH (07:38)
[2018-10-20] MEDS: Megestrol Acetate 800 MG/20 ML UDCUP PO SCH ×2 (07:39→16:26)
[2018-10-20] MEDS: Cefepime 2 GM in Sodium Chloride 0.9% 100 ML IVPB SCH (07:39)
[2018-10-20] MEDS: Tamsulosin HCl 0.4 MG CAP PO SCH (07:39)
[2018-10-20] MEDS: Potassium Chloride 20 MEQ TAB PO SCH (07:39)
[2018-10-20 16:29] VITALS: BP 119/65; TEMP 98.1
--- NOTE | 2018-10-21 06:11 | DIS ---
DATE OF ADMISSION: 10/08/2018 DATE OF DISCHARGE: 10/20/2018 DISCHARGE DIAGNOSES: 1. Local metastatic squamous cell carcinoma, stable. 2. Lymphangitis with local inguinal involvement, status post incision and drainage. 3. Sepsis secondary to lymphangitis with local cellulitis including Pseudomonas and Streptococcal A species. 4. Cachexia, multifactorial. CONSULTATIONS: 1. Dr. Cynthia Bravo with Urology Service. 2. Dr. Jenifer Sexton with General Surgery Service. 3. Dr. Roca with Pulmonology Service. 4. Dr. Fried with Medical Oncology Service. PERTINENT LAB AND X-RAY FINDINGS: Sodium ranged between 131 to 135, potassium ranged between 2.5 to 5.1. Lactic acid level ranged between 1.4 to 6.4, phosphorus ranged between 1.0 to 1.8. Magnesium level ranged between 1.0 to 1.3. CBC showed a white blood cell count ranged between 10.8 to 17.2, hemoglobin ranged between 8.9 to 12.3. Blood cultures x2 dated 10/08/2018, showed no growth at 5 days. Urine culture dated 10/08/2018, showed 10,000-25,000 colonies of mixed skin and enteric camilo. Groin wound culture dated 10/08/2018, showed moderate Pseudomonas aeruginosa with Enterococcus faecalis and beta-hemolytic strep group A. CT of the pelvis dated 10/11/2018, showed postoperative changes in bilateral inguinal regions. Soft tissue mass with the left inguinal region increased in size from previous study. Necrotic inguinal adenopathy noted. Please see dictated report for full details. Bone scan dated 10/13/2018, showed no evidence for osseous metastatic disease. CT of the chest dated 10/14/2018, showed small left pleural effusion with mild left basilar atelectasis. Chronic lung changes. HOSPITAL COURSE: The patient was initially admitted to the medical floor after presenting with generalized weakness with increased drainage from prior lymph node biopsies in the inguinal region. The patient was initially noted with elevated lactic acid level and white blood cell count, and treated for suspected sepsis from lymphangitis/cellulitis. The patient was given IV fluid resuscitation and continued on broad-spectrum IV antibiotic therapy with vancomycin and Zosyn. Wound cultures did show polymicrobial species as stated previously with conversion to cefepime intravenously. The patient underwent evaluation by the General Surgery and Urology Service due to the local invasion noted on CT imaging. The patient underwent incision and drainage per General Surgery Service with ultimate placement of wound VACs to the bilateral inguinal regions. The patient continued on wound VAC decompression for the remainder of the hospital course with current plans for indefinite use of the wound VAC therapy on discharge. The patient was evaluated by the Medical Oncology Service due to history of squamous cell carcinoma; however, no specific evidence to suggest wide-spread involvement or involvement beyond local invasion of the inguinal region. The patient was noted with general deconditioning and cachexia and placed on nutritional supplements with Ensure and Donnie. The patient also continued on regular oral intake and was given an appetite stimulant with Megace 400 mg b.i.d. The patient was also treated for multiple electrolyte abnormalities with supplementations to include potassium, phosphorus, and magnesium. Physical Therapy was consulted due to deconditioning and minimal ambulation due to the patient's comorbid status. The patient was deemed an appropriate candidate for an ongoing skilled care due to the need for wound VAC management, IV antibiotic therapy, and physical therapy. The patient has been approved to transfer to [facility] and we will transition on 10/20/2018. I have examined the patient at the time of discharge and discussed followup instructions. The patient overall is clinically stable and ready for transfer on 10/20/2018. DISCHARGE MEDICATIONS: 1. Tramadol 50 mg 1 to 2 tablets p.o. q.i.d. p.r.n. 2. Cefepime 2 g IV q.12 hours until 10/28/2018. 3. [place] 5/325 mg 1 to 2 tablets p.o. q.4 to 6 hours p.r.n. pain. 4. K-Phos Neutral 250 mg p.o. b.i.d. 5. Magnesium oxide 400 mg p.o. b.i.d. 6. Megace 400 mg p.o. b.i.d. 7. Flomax 0.4 mg p.o. b.i.d. FOLLOWUP: The patient will follow up with Dr. Cynthia Bravo with Urology Service. The patient will follow up with Dr. Dali Fried. CONDITION ON DISCHARGE: Fair. ACTIVITY: Ad-alex. DIET: Regular. CODE STATUS: Do not resuscitate. SPECIAL INSTRUCTIONS: Wound VAC changes on Mondays and . DISPOSITION: Transfer to [facility] on 10/20/2018. Total time preparing and coordinating discharge is 38 minutes. Job ID: [id number]
== END 2018-10-20 16:45 | disposition short-term general hospital (02) | DRG 862 ==
LOC: SCSER 09:23 → IMCU/EMU 10:45 → T4-B 10-13 00:29
PROVIDERS: ADMIT Internal Medicine; ATTEND Internal Medicine
DX: T81.44XA Sepsis following a procedure, initial encounter (principal); A41.52 Sepsis due to Pseudomonas; R64 Cachexia; Z68.1 Body mass index [BMI] 19.9 or less, adult; L03.314 Cellulitis of groin; C77.9 Secondary and unspecified malignant neoplasm of lymph node, unspecified; T81.40XA Infection following a procedure, unspecified, initial encounter; E83.52 Hypercalcemia; D72.829 Elevated white blood cell count, unspecified; E86.0 Dehydration; E87.6 Hypokalemia; Z85.89 Personal history of malignant neoplasm of other organs and systems
CPT/HCPCS: 36415; 71045; 71250; 72192; 78306; 80048; 80053; 80202; 81003; 81015; 82553; 83605; 83735; 83880; 84100; 84484; 85025; 87040; 87070; 87077; 87086; 87186; 87205; 93005; 96365; 96366; 96367; A9503; G8978-GP-CM; G8979-GP-CI; J0692; J1650; J2270; J2543; J3370; J3475; J3480; J3489; J7050; S0179

== ENCOUNTER 2018-11-01 16:16 | Emergency (ER) | payer MEDICARE ==
[2018-11-01 16:55] LABS: Hemoglobin 10.1 g/dL (14.0-18.0); Mean Corpuscular HGB CONC 32.3 g/dL (32.0-36.0); Mean Corpuscular Volume 99.2 fL (78.0-98.0); Mean Platelet Volume 8.6 fL (7.4-10.4); Platelet Count 67 thou/uL (130-400); RBC Distribution Width 16.2 % (11.5-14.5); Red Blood Cell (RBC) Count 3.16 mill/uL (4.70-6.10); White Blood Cell (WBC) Count 16.2 thou/uL (4.8-10.8)
[2018-11-01] MEDS ORDERED: Fentanyl 100 MCG/2 ML VIAL ONE (17:01)
[2018-11-01 17:11] LABS: Anisocytosis SLIGHT = 6-15 cells (100X) (0-5/hpf); Band 8 % (5-11); Hypochromia SLIGHT = 6-15 cells (100X) (0-5/hpf); Lymphocytes 9 % (21-51); MDiff Complete? YES; Monocytes 3 % (0-10); Neutrophil 80 % (42-75); PLT Morphology Comment Appears Decreased
== END 2018-11-01 18:45 | disposition home or self-care (01) ==
LOC: ERS 16:16
DX: K91.841 Postprocedural hemorrhage of a digestive system organ or structure following other procedure (principal); D64.9 Anemia, unspecified; I10 Essential (primary) hypertension; F17.210 Nicotine dependence, cigarettes, uncomplicated; Z79.899 Other long term (current) drug therapy
CPT/HCPCS: 36415; 85007; 85027; 96374; J3010